=== PATIENT | male | born 1935 | race Caucasian/White ===

== ENCOUNTER 2017-01-09 07:50 | Emergency (ER) | payer MEDICARE, BC ==
[2017-01-09 08:10] VITALS: BP 120/52
--- NOTE | 2017-01-09 08:54 | UC ---
Complaint Female HPI - HPI Summary HPI Summary: had a cystoscopy [place], and yesterday, developed pain with urination and frequency. [ End ] - History Of Current Complaint Chief Complaint: UCGU Stated Complaint: PAINFUL AND FREQUENT URINATION Time Seen by Provider: 01/09/17 08:15 Hx Obtained From: Patient Onset/Duration: Gradual Onset Timing: Constant Character: Sharp Associated Signs And Symptoms: Positive: Negative - Risk Factors Ovarian Torsion Risk Factor: Negative - Allergies/Home Medications Allergies/Adverse Reactions: Allergies Allergy/AdvReac Type Severity Reaction Status Date / Time No Known Allergies Allergy Verified 01/09/17 08:00 Home Medications: Home Medications Aspirin TAB* [Aspirin 325 MG TAB*] 325 mg PO DAILY 01/09/17 [History Confirmed 01/09/17] Clopidogrel TAB* [Plavix TAB*] 75 mg PO DAILY 01/09/17 [History Confirmed ] Med To Raise Bp DAILY 01/09/17 [History] PMH/Surg Hx/FS Hx/Imm Hx Previously Healthy: Yes Cardiovascular History: Cardiac Disease - Surgical History Surgical History: Yes Surgery Procedure, Year, and Place: carotid artery stent 09/2010 at [facility] [place] - ACCU LINK stent ok to 3T. left knee replacement 1998. tonsils as a child. appendix age 18. BILATERAL CATARACTS- [place]- 06/2013. 1984- KNEE SCRAPING- [place] - Family History Known Family History: Positive: None - Social History Occupation: Retired Lives: With Family Alcohol Use: None Substance Use Type: None Smoking Status (MU): Former Smoker When Did the Patient Quit Smoking/Using Tobacco: 20 years ago Review of Systems Constitutional: Negative Skin: Negative Eyes: Negative ENT: Negative Respiratory: Negative Cardiovascular: Negative Gastrointestinal: Negative Genitourinary: Dysuria, Hematuria, Frequency, Urgency Motor: Negative Neurovascular: Negative Musculoskeletal: Negative Neurological: Negative Psychological: Negative All Other Systems Reviewed And Are Negative: Yes Physical Exam Triage Information Reviewed: Yes Appearance: Well-Appearing, No Pain Distress, Well-Nourished Vital Signs: Initial Vital Signs Temp 99.4 F 01/09/17 08:05 Pulse 69 01/09/17 08:05 Resp 18 01/09/17 08:05 BP 120/52 01/09/17 08:05 Pulse Ox 100 01/09/17 08:05 Vital Signs Reviewed: Yes Eye Exam: Normal ENT Exam: Normal Dental Exam: Normal Neck exam: Normal Neck: Positive: 1 Respiratory Exam: Normal Cardiovascular Exam: Normal Abdominal Exam: Normal Musculoskeletal Exam: Normal Neurological Exam: Normal Psychological Exam: Normal Skin Exam: Normal Complaint Female Dx - Differential Dx/Diagnosis Differential Diagnosis/HQI/PQRI: Urinary Tract Infection Provider Diagnoses: UTI Discharge - Discharge Plan Condition: Good Disposition: HOME Prescriptions: Ciprofloxacin HCl [Cipro 250 MG TAB] 250 mg PO BID #20 tab Patient Education Materials: Urinary Tract Infection in Men (ED) Referrals: Hamlet Tello DO [Primary Care Provider] - 3 Days Additional Instructions: PLEASE HOLD YOUR STATIN WHILE TAKING THIS ANTIBIOTIC. PLEASE FOLLOW UP WITH YOUR DOCTOR IN 2 WEEKS FOR RECHECK ON URINE AND RETURN EARLIER IF YOUR SYMPTOMS ARE NOT IMPROVED
== END 2017-01-09 09:10 | disposition home or self-care (01) ==
LOC: UCCORT 07:50
DX: N39.0 Urinary tract infection, site not specified (principal); R31.9 Hematuria, unspecified; Z95.5 Presence of coronary angioplasty implant and graft; Z96.652 Presence of left artificial knee joint; Z98.42 Cataract extraction status, left eye; Z98.41 Cataract extraction status, right eye; Z87.891 Personal history of nicotine dependence
CPT/HCPCS: 81003; 87077; 87086; 87186; 99212; G0463

== ENCOUNTER 2017-01-18 07:52 | Emergency (ER) | payer MEDICARE, BC ==
--- NOTE | 2017-01-18 08:38 | UC ---
Respiratory Complaint HPI - HPI Summary HPI Summary: 81 yo male with chronic cough x months acutely worsened past 1-2 days no fever currently on last day of cipro for UTI improved no CP - History of Current Complaint Chief Complaint: UCRespiratory Stated Complaint: COUGH Time Seen by Provider: 01/18/17 08:18 Hx Obtained From: Patient Onset/Duration: Gradual Onset Timing: Constant Severity Initially: Mild Severity Currently: Moderate Pain Intensity: 4 - DJD Pain Scale Used: 0-10 Numeric Character: Sputum Description: - green Aggravating Factors: Nothing Alleviating Factors: Nothing Associated Signs And Symptoms: Positive: Dyspnea - Allergies/Home Medications Allergies/Adverse Reactions: Allergies Allergy/AdvReac Type Severity Reaction Status Date / Time No Known Allergies Allergy Verified 01/18/17 08:19 PMH/Surg Hx/FS Hx/Imm Hx Cardiovascular History: Cardiac Disease Respiratory History: COPD - on inhaler but can't remember name - Surgical History Surgical History: Yes Surgery Procedure, Year, and Place: carotid artery stent 09/2010 at [facility] [place] - ACCU LINK stent ok to 3T. left knee replacement 1998. tonsils as a child. appendix age 18. BILATERAL CATARACTS- [place]- 06/2013. 1983- KNEE SCRAPING- [place] - Family History Known Family History: Positive: None - Social History Alcohol Use: None Substance Use Type: None Smoking Status (MU): Former Smoker Type: Cigarettes Amount Used/How Often: 1 ppd Length of Time of Smoking/Using Tobacco: 20 yrs When Did the Patient Quit Smoking/Using Tobacco: 1976 Review of Systems Constitutional: Negative Skin: Negative Eyes: Negative ENT: Negative Respiratory: Shortness Of Breath, Cough Cardiovascular: Negative Gastrointestinal: Negative Genitourinary: Negative Motor: Negative Neurovascular: Negative Musculoskeletal: Negative Neurological: Negative Psychological: Negative All Other Systems Reviewed And Are Negative: Yes Physical Exam Triage Information Reviewed: Yes Appearance: Well-Appearing, No Pain Distress, Well-Nourished Vital Signs: Initial Vital Signs Temp 99.2 F 01/18/17 08:14 Pulse 75 01/18/17 08:14 Resp 16 01/18/17 08:14 BP 92/47 01/18/17 08:14 Pulse Ox 98 01/18/17 08:14 Vital Signs Reviewed: Yes Eyes: Positive: Conjunctiva Clear ENT: Positive: Pharynx normal, Pharyngeal erythema. Negative: Hearing grossly normal Neck: Positive: Supple, Nontender Respiratory: Positive: Lungs clear, Normal breath sounds, No respiratory distress, No accessory muscle use Cardiovascular: Positive: RRR, No Murmur Musculoskeletal: Positive: No Edema, Edema @ - right leg (chronic per pt) Neurological: Positive: Alert UC Diagnostic Evaluation - Laboratory O2 Sat by Pulse Oximetry: 98 - normal/not hypoxic - Radiology Xray Interpretation: No Acute Changes Radiology Interpretation Completed By: Radiologist Respiratory Course/Dx - Course Course Of Treatment: pt has been referred to a pulmonalogist but has not yet made an appt - Differential Dx/Diagnosis Provider Diagnoses: acute exacerbation of chronic cough Discharge - Discharge Plan Condition: Stable Disposition: HOME Prescriptions: Benzonatate CAP* [Tessalon CAP*] 100 - 200 mg PO TID PRN #28 cap PRN Reason: Cough Fluticasone NASAL SPRAY 50MCG* [Flonase NASAL SPRAY 50MCG*] 2 spray BOTH NARES DAILY #1 btl Patient Education Materials: Chronic Cough (ED) Referrals: Hamlet Tello DO [Primary Care Provider] - 4 Days
--- NOTE | 2017-01-18 08:47 | RAD ---
INDICATION: Exacerbation of a chronic cough COMPARISON: None TECHNIQUE: PA and lateral views of the chest were obtained. FINDINGS: The heart and mediastinum are normal in size and contour. There is faint atherosclerotic calcification overlying the arch of the aorta. The lungs are grossly clear. There is no evidence of large pleural effusion. Visualized bones are normal for the patient's age. There is no radiographic evidence of free air beneath the diaphragm IMPRESSION: No radiographic evidence of acute cardiopulmonary disease.
[2017-01-18 08:58] VITALS: BP 92/47
== END 2017-01-18 09:21 | disposition home or self-care (01) ==
LOC: UCCORT 07:52
DX: R05 Cough (principal); R06.00 Dyspnea, unspecified; N39.0 Urinary tract infection, site not specified; J44.9 Chronic obstructive pulmonary disease, unspecified; Z95.5 Presence of coronary angioplasty implant and graft; Z96.652 Presence of left artificial knee joint; Z98.42 Cataract extraction status, left eye; Z98.41 Cataract extraction status, right eye; Z87.891 Personal history of nicotine dependence
CPT/HCPCS: 71020; 99212; G0463

== ENCOUNTER 2017-05-08 10:12 | Emergency (ER) | payer MEDICARE, BC ==
[2017-05-08 10:21] VITALS: BP 114/64
--- NOTE | 2017-05-08 10:22 | UC ---
Respiratory Complaint HPI - HPI Summary HPI Summary: cough minimal sputum, no fever, no shortness of breath, has not gone to the pulmonary provider, patient states when this happens tessalon and flonase is very effective for him - History of Current Complaint Chief Complaint: UCRespiratory Stated Complaint: CHEST CONGESTION, COUGH Time Seen by Provider: 05/08/17 10:20 Hx Obtained From: Patient Onset/Duration: Gradual Onset, Lasting Days, Still Present Timing: Intermittent Episodes Severity Initially: Mild Severity Currently: Mild Character: Cough: Productive - minimal clear sputum Aggravating Factors: Recumbent Position Alleviating Factors: Other - flonase and tessalon in the past has been effective Associated Signs And Symptoms: Positive: Negative - Allergies/Home Medications Allergies/Adverse Reactions: Allergies Allergy/AdvReac Type Severity Reaction Status Date / Time No Known Allergies Allergy Verified 05/08/17 10:21 PMH/Surg Hx/FS Hx/Imm Hx Previously Healthy: No Endocrine History: Dyslipidemia Cardiovascular History: Cardiac Disease Respiratory History: Asthma GI/ History: Gastroesophageal Reflux - Surgical History Surgical History: Yes Surgery Procedure, Year, and Place: carotid artery stent 09/2010 at [facility] [place] - ACCU LINK stent ok to 3T. left knee replacement 1998. tonsils as a child. appendix age 18. BILATERAL CATARACTS- [place]- 06/2013. 1983- KNEE SCRAPING- [place] - Family History Known Family History: Positive: None - Social History Occupation: Retired Lives: With Family Alcohol Use: None Substance Use Type: None Smoking Status (MU): Former Smoker Type: Cigarettes Amount Used/How Often: 1 ppd Length of Time of Smoking/Using Tobacco: 20 yrs When Did the Patient Quit Smoking/Using Tobacco: 20 years ago - Immunization History Most Recent Influenza Vaccination: 04/2017 Hx Tetanus, Diphtheria Vaccination: Yes Vaccination Up to Date: Yes Review of Systems Constitutional: Negative Skin: Negative Eyes: Negative ENT: Negative Respiratory: Cough Cardiovascular: Negative Gastrointestinal: Negative Genitourinary: Negative Motor: Negative Neurovascular: Negative Musculoskeletal: Negative Neurological: Negative Psychological: Negative Is Patient Immunocompromised?: No All Other Systems Reviewed And Are Negative: Yes Physical Exam Triage Information Reviewed: Yes Appearance: Well-Appearing, No Pain Distress, Well-Nourished Vital Signs: Initial Vital Signs Temp 98.2 F 05/08/17 10:16 Pulse 76 09/30/17 10:16 Resp 18 05/08/17 10:16 BP 114/64 05/08/17 10:16 Pulse Ox 98 05/08/17 10:16 Vital Signs Reviewed: Yes Eye Exam: Normal Eyes: Positive: Conjunctiva Clear ENT Exam: Normal ENT: Positive: Normal ENT inspection, Hearing grossly normal, Pharynx normal, TMs normal. Negative: Nasal congestion, Nasal drainage, Trismus, Muffled/ hoarse voice Dental Exam: Normal Neck exam: Normal Neck: Positive: Supple, Nontender, No Lymphadenopathy Respiratory Exam: Normal Respiratory: Positive: Chest non-tender, Lungs clear, Normal breath sounds, No respiratory distress, No accessory muscle use Cardiovascular Exam: Normal Cardiovascular: Positive: RRR, Pulses Normal, Brisk Capillary Refill Musculoskeletal Exam: Normal Musculoskeletal: Positive: Strength Intact, ROM Intact, No Edema Neurological Exam: Normal Neurological: Positive: Alert, Muscle Tone Normal Psychological Exam: Normal Skin Exam: Normal UC Diagnostic Evaluation - Laboratory O2 Sat by Pulse Oximetry: 98 Respiratory Course/Dx - Course Course Of Treatment: follow at [employer], flonase, tessalon, continue inhalers - Differential Dx/Diagnosis Differential Diagnosis/HQI/PQRI: Asthma, Laryngitis, Sinusitis Provider Diagnoses: Acute exacerbation of chronic cough Discharge - Discharge Plan Condition: Stable Disposition: HOME Prescriptions: Benzonatate CAP* [Tessalon 100 MG CAP*] 100 mg PO TID PRN #40 cap PRN Reason: cough Fluticasone NASAL SPRAY 50MCG* [Flonase NASAL SPRAY 50MCG*] 2 spray BOTH NARES DAILY #1 btl Patient Education Materials: Chronic Cough (ED), How to Use Nasal [place] (ED) Referrals: Hamlet Tello DO [Primary Care Provider] - 1 Week
== END 2017-05-08 10:47 | disposition home or self-care (01) ==
LOC: UCCORT 10:12
DX: R05 Cough (principal); E78.5 Hyperlipidemia, unspecified; K21.9 Gastro-esophageal reflux disease without esophagitis
CPT/HCPCS: 99212; G0463

== ENCOUNTER 2017-09-02 11:24 | Inpatient (IN) | payer MEDICARE, BC ==
--- NOTE | 2017-08-26 12:13 | HP ---
HISTORY AND PHYSICAL: DATE OF ADMISSION: 09/02/17 PROVIDER: Dr. Shyla Goodwin.* (DICTATED BY MARIANGEL SPEAR) HISTORY OF PRESENT ILLNESS: Mr. Olivas is an 82-year-old man scheduled to undergo a left revision total knee arthroplasty on 09/02/17. He has been experiencing continued pain in the knee and would like to proceed with the arthroplasty. He is to hold the aspirin/clopidogrel 1 week prior to the operation and restart the day after the operation has been completed. PAST MEDICAL HISTORY: 1. COPD. 2. GERD. 3. Osteoarthritis. 4. Hypotension, stable with midodrine use. 5. Prostate cancer. 6. 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 7. Bilateral carotid artery stenosis. PAST SURGICAL HISTORY: 1. Stenting of intracranial artery, 09/29/12. 2. Re-stenting and angioplasty, 04/15/16. 3. Knee replacement, 07/17/99, left total knee replacement. 4. Shoulder surgery with tendon repair, unknown date. 5. Appendectomy, 1953. 6. Tonsillectomy and wisdom tooth extraction, unknown date. CURRENT MEDICATIONS: 1. Clopidogrel bisulfate 75 mg 1 by mouth every day. 2. Aspirin 325 mg 1 by mouth every day. 3. Simvastatin 40 mg 1 tablet by oral route every day. 4. Omeprazole 20 mg 1 capsule by oral route every day 30 minutes to 1 hour before meal. 5. Vitamin D high potency 1000 units. 6. Sildenafil citrate. 7. SF 5000 plus. 8. Cialis 20 mg. 9. Midodrine hydrochloride 5 mg. 10. Dulera 200/5 mcg. ALLERGIES: No known drug allergies. SOCIAL HISTORY: Lives with spouse. 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 Work status, retired. Hand dominant, right hand. Personal habits: Smoking, the patient is a former smoker smoked 10 years , quit over 50 years ago. Alcohol, has consumed in the past, does not consume currently. Drug use, denies any drug use. REVIEW OF SYSTEMS: General: The patient denies any fevers, chills, or night sweats. No known anesthesia problems. HEENT: The patient denies any headache , lightheadedness, or syncopal episodes. Cardiothoracic: The patient denies any chest pain, heart palpitations, or edema. Pulmonary: The patient denies any shortness of breath with exertion, chronic cough. GI: The patient denies any nausea, vomiting, diarrhea, or constipation. : The patient denies any nocturia, urinary frequency, or urinary urgency. MSK: The patient admits to bilateral knee pain, left worse than right. Neuro: The patient denies any paresthesia, numbness, or tingling. Integument: The patient denies any abrasions, lesions, rashes, or open sores. PHYSICAL EXAMINATION GENERAL: The patient is alert and oriented x3 with appropriate mood and affect , in no acute distress. HEENT: Normocephalic, atraumatic. Hearing and vision are grossly intact. PULMONARY: Lungs are clear to auscultation bilaterally. No wheezes, rales, or rhonchi. CARDIO: Regular rate and rhythm. Normal S1 and S2. No murmurs, rubs, or gallops appreciated. MUSCULOSKELETAL: Left lower extremity, inspection of left knee reveals no erythema, no ecchymosis. Skin is warm, dry, and intact. There is an old incision present, which points to an old total knee replacement. Range of motion is 0 to 100 degrees of flexion. The patient has negative anterior and posterior drawer test. Negative varus and valgus stress testing, but he does have pain. The patient's gait is antalgic, favoring the left lower extremity. He does not use an assistive device at this time to walk. DIAGNOSTIC STUDIES: Imaging: X-rays of both knees obtained from 06/17/17 were reviewed. The lateral left knee shows an effusion, total knee arthroplasty , shows periprosthetic bone loss with lysis, the implant grossly stable. [facility] both patellas are normally aligned. 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 PLAN: He will undergo a left total knee arthroplasty revision on 09/02/17. He has been cleared by his PCP and his neurologist. At this time, he will come off the aspirin and clopidogrel 1 week before surgery and resume shortly after surgery. The patient will be sent a script for Percocet 5/325 for postop pain management. The patient will return 10 to 14 days postoperatively for suture removal and followup. MARIANGEL SPEAR [id number]/[facility] #: [id number] [facility], [place]
[~2017-09-02 11:24] MED LIST: Acetaminophen TAB* 325 MG PO ONE; Buffered Lidocaine 0.9% SYRIN* 5 ML/SYR SYRINGE INTRADERM ONE; DiMENhydriNATE IV* 50 MG/ML VIAL IV PUSH PRN; Famotidine IV* 10 MG/ML 2 ML (20 mg) IV ONE; Gabapentin CAP(*) 300 MG PO ONE; Morphine INJ* 2 MG/ML 1 ML CARPUJECT IV PRN; Naloxone* 0.4 MG/ML 1 ML VIAL IV PRN; PROCHLORPERAZINE INJ 5 MG/ML 2 ML VIAL IV PRN; fentaNYL* 50 MCG/ML 2 ML VIAL (100 MCG VIAL) IV PRN; oxyCODONE/Acetamin 5/325 MG* TAB PO PRN
[2017-09-02] MEDS ORDERED: Famotidine IV* 10 MG/ML 2 ML (20 mg) ONE (11:38)
[2017-09-02] MEDS ORDERED: Gabapentin CAP(*) 300 MG ONE (11:38)
[2017-09-02] MEDS ORDERED: ceFAZolin 2 GM PREMIX (*) 2 GM/50 ML BAG IVPB ONE (11:39)
[2017-09-02] MEDS ORDERED: Buffered Lidocaine 0.9% SYRIN* 5 ML/SYR SYRINGE ONE (11:39)
[2017-09-02] MEDS ORDERED: Acetaminophen TAB* 325 MG ONE (11:39)
[2017-09-02] MEDS ORDERED: fentaNYL* 50 MCG/ML 2 ML VIAL (100 MCG VIAL) ONE ×2 (13:44→16:42)
[2017-09-02] MEDS ORDERED: Morphine PF AMP (0.5MG/ML)* 5 MG/10 ML AMP ONE (13:44)
[2017-09-02] MEDS ORDERED: KETAMINE HCL* 50 MG/ML 10 ML VIAL ONE (13:44)
[2017-09-02] MEDS ORDERED: Midazolam* 1 MG/ML 10 ML VIAL (10 MG) ONE (13:44)
[2017-09-02] MEDS ORDERED: Scopolamine 1.5 mg* PATCH TRANSDERM PRN (14:45)
[2017-09-02] MEDS ORDERED: Ketorolac INJ* 30 MG/ML 1 ML VIAL IV PRN (14:45)
[2017-09-02] MEDS ORDERED: Ondansetron INJ* 2 MG/ML VIAL IV PRN (14:45)
[2017-09-02] MEDS ORDERED: PROCHLORPERAZINE INJ 5 MG/ML 2 ML VIAL IV PRN (14:45)
[2017-09-02] MEDS ORDERED: Naloxone* 0.4 MG/ML 1 ML VIAL IV PRN (14:45)
[2017-09-02] MEDS ORDERED: Scopolamine PATCH Remove* 1 NOTE MISC PATCH OFF PRN (14:45)
[2017-09-02] MEDS ORDERED: oxyCODONE/Acetamin 5/325 MG* TAB PO PRN (14:45)
[2017-09-02] MEDS ORDERED: Naloxone* 2 MG in NS 0.9% 250 ML* 250 ML IV PRN (14:45)
[2017-09-02] MEDS ORDERED: diPHENhydraMINE IV* 50 MG/ML 1 ml VIAL (BENADRYL) IV PRN (14:45)
[2017-09-02] MEDS ORDERED: Nalbuphine* 20 MG/ML 1 ML VIAL IV PRN (14:45)
--- NOTE | 2017-09-02 18:13 | RAD ---
CPT II Codes: 6045F INDICATION: Left knee replacement. Fluoroscopic services provided for referring physician. 4.9 seconds of fluoroscopy time was used. 5 spot images demonstrates placement of a bipolar left knee prosthesis in satisfactory position. IMPRESSION: Left knee replacement in satisfactory position.
[2017-09-02] MEDS ORDERED: Bupivacaine 0.5% SDV PF* 10-30ML VIAL ONE (18:14)
[2017-09-02] MEDS ORDERED: Bupivacaine 0.25% SDV* 30 ML ONE (18:14)
[2017-09-02] MEDS ORDERED: Dexamethasone IV* 4 MG/ML 1 ML (4 MG) ONE (18:15)
[2017-09-02] MEDS ORDERED: Phenylephrine INJ* 10 MG/ML 1 ML VIAL (10 MG) ONE (18:15)
[2017-09-02] MEDS ORDERED: Ondansetron INJ* 2 MG/ML VIAL ONE (18:15)
[2017-09-02] MEDS ORDERED: Lidocaine 2% PF* 10 ML AMP ONE (18:15)
[2017-09-02] MEDS ORDERED: Lidocaine 2% PF * 5 ML VIAL ONE (18:15)
[2017-09-02] MEDS ORDERED: ceFAZolin 1 GM VIAL(*) ONE ×2 (18:17→18:19)
[2017-09-02] MEDS ORDERED: Propofol* 10 MG/ML 20 ML BTL IV PUSH ONE (18:25)
[2017-09-02] MEDS ORDERED: Magnesium Hydroxide LIQ* 30 ML UDC PO PRN (18:30)
[2017-09-02] MEDS ORDERED: Acetaminophen TAB* 325 MG PO PRN (18:30)
[2017-09-02] MEDS ORDERED: Cyclobenzaprine TAB* 10 MG PO PRN (18:30)
[2017-09-02] MEDS ORDERED: Bisacodyl SUPP* 10 MG SUPP PR PRN (18:30)
[2017-09-02] MEDS ORDERED: Polyethylene Glycol 3350* 17 GM PACKET PO PRN (18:30)
[2017-09-02] MEDS ORDERED: Albuterol 2.5 MG/3 ML NEB.SOL* (0.083%) INH PRN (19:26)
--- NOTE | 2017-09-02 20:29 | RAD ---
Indication: Status post left knee replacement effusion. Left femur revision of the femoral and tibial components demonstrates the left knee prosthesis proximal component is well seated. No fracture of the remaining left femur noted. IMPRESSION: Left femur demonstrates no fracture.
--- NOTE | 2017-09-02 20:30 | RAD ---
Indication: Left knee replacement. 2 views of left knee demonstrates left knee replacement in satisfactory position. No loosening is noted. IMPRESSION: Left knee replacement in satisfactory position.
--- NOTE | 2017-09-02 20:31 | RAD ---
Indication: Left knee replacement with revision. 2 views of the left lower leg demonstrates the tibial component to be well seated. No loosening is noted. The remainder of the tibia and fibula are unremarkable. IMPRESSION: Tibial component of the left knee replacement appears to be intact with no fracture.
[2017-09-02] MEDS ORDERED: Warfarin TAB(*) 6 MG PO ONE (21:00)
[2017-09-02] MEDS: Magnesium Hydroxide LIQ* 30 ML UDC PO SCH (21:34)
[2017-09-02] MEDS: Docusate CAP* 100 MG PO SCH (21:37)
[2017-09-02] MEDS: ceFAZolin 1 GM VIAL(*) 1 GM in NS 0.9% 50 ML* 50 ML IVPB SCH (22:51)
[2017-09-02] MEDS: Albuterol HFA INHALER* 8 gm MDI INH PRN (23:05)
[2017-09-02] MEDS: Mometasone/Formoter 200/5 MDI INH SCH (23:06)
--- NOTE | 2017-09-02 23:07 | CONS ---
CC: Dr. Goodwin; Dr. Bowers * CONSULTATION REPORT: DATE OF CONSULTATION: 09/02/17 REASON FOR MEDICAL CONSULTATION: Evaluation and medical management of comorbid medical condition. REQUESTING PHYSICIAN IN CONSULT: Dr. Goodwin. ATTENDING PHYSICIAN WHILE IN THE HOSPITAL: Dr. Horace Zuniga (report dictated by Claudio Molina, GABO). PRIMARY CARE PROVIDER: Dr. Bowers. HISTORY OF PRESENT ILLNESS: I will refer you to Dr. Goodwin's H and P for further details. In short, Mr. Olivas is an 82-year-old male patient. He carries a history of asthma, GERD. He has a history of carotid artery disease, status post carotid stent. He has a history of prostate cancer and hypotension , on chronic midodrine therapy and a history of osteoarthritis. He came in to Dr. Goodwin's service today because he has been experiencing some discomfort in his left knee of which he had a replacement there in the past. He sought evaluation and it was felt that he would benefit from a revision. The patient underwent perioperative risk stratification with his PCP, his aircraft sales representative, and his neurologist. He is evaluated in the PACU today. He states he is feeling well. He said he has a cough, he has been having for the last 5 days. Denies having any shortness of breath, fevers or chills. No chest pain. He denies any abdominal pain. He says he does not feel nauseous. He says his pain is well controlled and he denies having any symptoms of lightheadedness or feeling like he is going to faint. Because of his medical complexity, we were asked to evaluate in consult. PAST MEDICAL HISTORY: Significant for: 1. Asthma. 2. GERD. 3. Arthritis. 4. Hypotension. 5. Prostate cancer. 6. Carotid artery stenosis. PAST SURGICAL HISTORY: 1. He has had a carotid artery stent. 2. He has had a left total knee replacement, now with revision. 3. He has had shoulder surgery. 4. Appendectomy. 5. Tonsillectomy. 6. He has had a TURP. HOME MEDICATIONS: According to the preoperative list include: 1. Cialis 20 mg daily as needed. 2. Simvastatin 40 mg daily. 3. Omeprazole 40 mg daily. 4. Dulera 2 puffs inhaled b.i.d. 5. Midodrine 5 mg p.o. daily. 6. Plavix 75 mg daily. 7. Aspirin 325 mg daily. 8. ProAir 1 puff inhaled every 6 hours as needed. ALLERGIES TO MEDICATIONS: Include no known drug allergies. FAMILY HISTORY: His mother of old age at the age of 94. Father had a history of COPD. SOCIAL HISTORY: He does not smoke, does not drink. Surrogate decision maker is his . REVIEW OF SYSTEMS: There is no documented fever. He denies having any significant weight change. No double vision. There is no ear discharge. He denies having any rhinorrhea. No sore throat. No thyroid enlargement. Denies having any chest pain or orthopnea. No nocturnal dyspnea. There is no abdominal pain. No nausea, no vomiting. No dysuria, no frequency. No seizure , no loss of consciousness, no pruritus, and no skin ulcerations. Review of 14 systems completed, all others negative. PHYSICAL EXAMINATION: Vital Signs: Temperature 146/76, pulse 65, respirations 18, O2 saturation 97%, temperature 96.4. General: At this time, Mr. Olivas is an 82- year-old male patient, he is sitting in the PACU stretcher, he appears to be well nourished, well developed. HEENT: Head is atraumatic. Eyes: Sclerae anicteric. Neck: Supple. Throat: Oral mucosa appears to be moist. No oropharyngeal erythema. Heart sounds S1, S2. Regular rate and rhythm. No murmurs, rubs, or gallops. Lungs: Clear to auscultation bilaterally. No wheezes, rales, or rhonchi. Abdomen: Soft, flat, nontender. Bowel sounds hypoactive. Extremities: Pulses were 2+ throughout. He had sensation in the lower extremities. He is dorsi and plantar flexing. Distal CSM checks are intact to the left lower extremity. Neurologically, he is drowsy, but he awakens to his name. He is alert, he is oriented x3. His tongue is midline. No gross focal deficits. His skin was intact with the exception he has an incision and Hemovac to the left knee, which is clean, dry, and intact. LABORATORY DATA/DIAGNOSTIC DATA: These are preop, WBC of 6.3, RBC of 4.32, hemoglobin 13.6, hematocrit of 41, platelet count 178. His INR was 0.96. His sodium 132, potassium 4.8, chloride of 104, bicarbonate 22, BUN 25, creatinine of 1.13, glucose of 99. Urine preop was negative. He did have a preop EKG as well, which showed a normal sinus rhythm, rate of [address] with a PVC. No ST elevation or T- wave inversions were noted. He did have a preop chest x-ray, impression: No active cardiopulmonary disease. Old medical records reviewed. IMPRESSION: Mr. Olivas is an 82-year-old male patient with multiple medical problems coming into our orthopedic service today for an elective total knee revision. We were asked to evaluate in consult. Our recommendations at this point are: 1. Status post left total knee revision. I will defer the management of this to Dr. Goodwin and her team. I will say that I would recommend getting him back on aspirin and Plavix. I do note that they are placing on Coumadin for DVT prophylaxis. We may want touch base with the patient's neurologist in [place], there is a note in the chart with their numbers that we can touch base with them tomorrow to see if they want to do antiplatelet therapy and Coumadin, it will be triple therapy, which will increase his risk of bleeding. They may consider just doing Plavix and Coumadin or aspirin and Coumadin. We should touch base with them tomorrow to figure out going forward which antiplatelet agents as soon as possible and deemed safe by Orthopedics. 2. Carotid artery disease. As I said before, we should touch base with his primary neurologist tomorrow to see what his advice is knowing the patient is going to be on Coumadin for most likely 4 weeks postoperative to prevent DVT. We should see if he would still continue aspirin and Plavix dual therapy. It could be conceivable that his neurologist may want to do Plavix and Coumadin, and once he is off his Coumadin, we will get him back on his aspirin and Plavix , again we need to touch base with them to clarify this. 3. Gastroesophageal reflux disease. Continue PPI therapy. 4. History of asthma. He is coughing here postoperatively. We will continue aggressive pulmonary toileting. I have ordered p.r.n. albuterol. We will continue his Dulera as a standing and we will continue to follow him. 5. Prostate cancer. Continue his current medical management. 6. DVT prophylaxis, deferred to the primary team. 7. Code status. Full code. 8. Fluids, electrolytes and nutrition. I would recommend a heart healthy diet. TIME SPENT: Time spent on the consult 60 minutes, greater than half that time was spent [id number] with the patient obtaining my history and physical, the other half time was spent going over the plan of care with the patient, implementing the plan of care. I did discuss the plan of care with my attending , Dr. Zuniga. He is in agreement. CLAUDIO MOLINA, GABO [id number]/[facility] #: [id number] [facility]
--- NOTE | 2017-09-03 05:33 | OP ---
DATE OF OPERATION: 09/02/17 - ROOM #348 DATE OF : 35 ATTENDING SURGEON: Shyla Goodwin MD STAFF AUDITOR: MARIANGEL Arguelles. Ms. Coello did help throughout the procedure with preparation of the leg, wound retraction, manipulation of the knee and wound closure. ANESTHESIOLOGIST: Dr. Khan. ANESTHESIA: Spinal. 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 OPERATIVE PROCEDURE: Left revision total knee arthroplasty/revision of both femur and tibial components. TOURNIQUET TIME: 88 minutes. COMPLICATIONS: None. ESTIMATED BLOOD LOSS: 450 cc. SPECIMEN: Multiple cultures swabs were sent for microbiology, cultures and sensitivities. Also soft tissue from the joint capsule was sent for cultures and sensitivities. The explanted hardware was sent to pathology. HARDWARE USED: This is a DePuy revision cemented total knee arthroplasty hardware. For the femur, a Sigma TC3 femoral component cemented size 4 left with a neutral femoral adaptor bolt and a universal fluted stem 75 x 18 mm. For the femoral component, two posterior augments were used medially and laterally for the size 4, which were 4 mm. Also a distal lateral augment was used for a size 4 femur, which was 8 mm. A MBT revision metaphyseal pore sleeve size 37 was used for the tibial tray and MBT revision tibial tray rotating platform size 5 cemented was used with a universal fluted stem 75 mm x 16 mm. For the insert, a sigma tibial insert rotating platform TC3 size 4 with 50 mm thickness. Two packages of Simplex cement with Tobramycin were used. BRIEF HISTORY/INDICATIONS: Mr. Olivas is an 82-year-old gentleman who had left total knee arthroplasty in 1998 at an outside facility. Over the last year, he has developed increased pain and recurrent effusions in the left knee. Radio- graphs showed osteolysis and periprosthetic loosening. I offered him a revision left total knee arthroplasty and he wished to proceed due to decreased quality of life and inability to ambulate. Informed consent was obtained from the patient. He understood the risks of surgery included but were not limited to bleeding, infection, damage to nearby structures, continued pain, need for further surgery, intraoperative fracture, nerve palsy, hardware failure or loosening, knee stiffness, loss of motion, stroke, heart attack, blood clot and . He wished to proceed. INTRAOPERATIVE FINDINGS: Intraoperatively, the patient was noted to have significant osteolysis and bone loss around the implants. This was most apparent along the lateral femoral condyle and medial tibial plateau. Patella showed some mild wear, but was not loose and the decision was made to revise the patellar component. The patient's prior implants were explanted without significant bone loss. DESCRIPTION OF PROCEDURE: Mr. Olivas was identified in the preanesthesia unit. His left lower extremity was marked as the correct operative side. Informed consent was signed and placed in the chart. The patient was taken to the operating room and placed under spinal anesthesia. A Melchor catheter was placed. Tourniquet was placed on the left lower extremity. Left lower extremity was prepped and draped in the usual sterile fashion. Preop time-out was made to correctly identify the patient's side and site. Appropriate perioperative antibiotics were given within 1 hour of incision. Tourniquet was inflated. Total tourniquet time for this procedure was 88 minutes. The patient 's prior midline incision was used. A 10- blade was used to carefully dissect down to the extensor mechanism. Next, a new 10- blade was used to make a standard medial parapatellar arthrotomy. 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 This was carefully excised with electrocautery. Scar tissue along the patellar tendon was carefully released. The patella was everted and it was noted that although the patella had mild wear, the patella was not loose and in good shape. Decision was made not to revise the patella. Patella was subluxed laterally. Electrocautery was used to subperiosteally elevate soft tissue off the superomedial tibia to the mid sagittal plane. The knee was flexed up. The microsagittal saw was used to carefully break the cement hardware interface along the medial and lateral femoral component. The prior polyethylene insert was removed with an osteotome. A bone tamp was used to carefully remove the femoral component. It was noted that there was very little bone loss on the femoral component. A rongeur was used to remove any cystic bone. It was noted that there was significant bone loss along the lateral femoral condyle. Attention was next turned to explant of the tibial component. Microsagittal saw and both flexible and rigid osteotomes were used to break the cement hardware interface. The tibial tray was carefully explanted. Very minimal bone loss was noted. After removal of any cystic bone or fibrous tissue, it was noted that the medial tibial plateau had significant bone loss. Several different tools were used to carefully remove cement from the intramedullary canal. Next, the tibial intramedullary canal was sequentially reamed up to a size 16. The metaphyseal sleeve press fit broaches were used to find a stable platform in the tibia. The metaphyseal sleeve broaches were used up to a size 37. The broach was left in. The broach was used to make a clean-up cut of the lateral tibial plateau region. Next, a trial tibial tray with 37 metaphyseal sleeve and 16 mm x 75 mm stem was chosen. This trial was placed and noted to have excellent fit and stability on the proximal tibia. Attention was next turned to preparation of the distal femur. Intramedullary canal was sequentially hand reamed up to a size 18 mm. Broach was left in place. The distal cut was made noting that there was minimal clean-up on the medial distal femur and +8 mm loss of bone laterally. The femur was sized to a size 4. Size 4 multi-cutting jig was placed. It was noted that posteriorly 4 mm augments would be needed both medially and laterally. Clean-up cuts were made. Next, the jig for the box was placed and the appropriate cuts were made for the TC3 box. Trial femur was put together with 4 mm posterior augments both medially and laterally. A lateral distal 8 mm augment was used. An 18 x 75 mm stem was used. This was placed on the femur and the trial had excellent fit. A 12.5 insert trial was placed and the knee was taken through range of motion. The knee had full extension to 130 degrees of flexion with satisfactory patellofemoral tracking. All trials were carefully removed. Tourniquet had been turned down at 60 minutes. The tourniquet was reinflated at this point. The bony cut surfaces were copiously irrigated with sterile saline and dried. Final implants were cemented into place starting with the tibia followed by the femur. The stems were not cemented. These were press fit stems. The metaphyseal sleeve of course was not cemented, this was also press fit. A 15-mm insert trial was placed and the knee was brought out into full extension. Tourniquet was turned down at 88 minutes. Any excess cement was carefully removed from around the implants. The knee was copiously irrigated with sterile saline. Once the cement had fully cured, the insert trial was removed. Any extra cement around the implants was removed. Final insert chosen was a Sigma rotating platform TC3 size 4, 15 mm insert. This was placed without difficulty. The knee was taken through range of motion and had full extension to 130 degrees of flexion with satisfactory patellofemoral tracking. The extensor mechanism was closed over a medium Hemovac drain using interrupted #1 Vicryl. The rest of the incision was closed in a layered fashion using 0 and 2-0 Vicryl. Skin was closed using running 3-0 nylon suture. Sterile Xeroform, 4x4s, and Webril were used to cover the incision. Tay wrap and cold pack were placed over this. The patient's anesthesia was reversed without difficulty. He was taken to the PACU in stable condition. Intended weightbearing will be weightbearing as tolerated. Intended DVT prophylaxis will be Coumadin with a Lovenox bridge. [id number]/[facility] #: [id number] [facility]
[2017-09-03] MEDS ORDERED: diPHENhydraMINE IV* 50 MG/ML 1 ml VIAL (BENADRYL) IV PRN (06:00)
[2017-09-03] MEDS ORDERED: oxyCODONE TAB* 5 MG TAB PO PRN (06:00)
[2017-09-03] MEDS ORDERED: Ondansetron TAB* 4 MG PO PRN (06:00)
[2017-09-03] MEDS ORDERED: oxyCODONE/Acetamin 5/325 MG* TAB PO PRN (06:00)
[2017-09-03 06:19] LABS: ABS Basophils 0 10^3/ul (0-0.2); ABS Eosinophils 0 10^3/ul (0-0.6); ABS Lymphocytes 0.8 10^3/ul (1.0-4.8); ABS Monocytes 0.7 10^3/ul (0-0.8); ABS Neutrophils 6.6 10^3/ul (1.5-7.7); ABS Nucleated RBC 0 10^3/ul; Eosinophil % 0 % (0-6); Hematocrit 30 % (42-52); Hemoglobin 10.3 g/dl (14.0-18.0); Lymphocyte % 9.7 % (25-47); Mean Corpuscular HGB Conc 34 g/dl (31-36); Mean Corpuscular Hemoglobin 32 pg (27-31); Mean Corpuscular Volume 93 fL (80-94); Mean Platelet Volume 9 um3 (7.4-10.4); Nucleated Red Blood Cells % 0; Platelet Count 143 10^3/ul (150-450); Red Blood Count 3.21 10^6/ul (4.0-5.4); Red Cell Distribution Width 14 % (10.5-15); White Blood Count 8.1 10^3/ul (3.5-10.8)
[2017-09-03 06:29] LABS: INR 1.09 (0.77-1.02)
[2017-09-03] MEDS: ceFAZolin 1 GM VIAL(*) 1 GM in NS 0.9% 50 ML* 50 ML IVPB SCH ×2 (06:31→14:15)
[2017-09-03] MEDS: oxyCODONE/Acetamin 5/325 MG* TAB PO PRN ×4 (06:39→22:05)
[2017-09-03 06:42] LABS: EGFR Non-African American 47.3 (>60)
[2017-09-03] MEDS: Albuterol HFA INHALER* 8 gm MDI INH PRN (07:40)
[2017-09-03] MEDS: Mometasone/Formoter 200/5 MDI INH SCH ×2 (07:41→22:06)
[2017-09-03] MEDS: CMCS Midodrine (NF) 5 MG TAB PO SCH (08:46)
[2017-09-03] MEDS: Docusate CAP* 100 MG PO SCH ×2 (08:46→20:56)
[2017-09-03] MEDS: Magnesium Hydroxide LIQ* 30 ML UDC PO SCH ×2 (08:46→20:56)
[2017-09-03] MEDS: Omeprazole CAP* 20 MG PO SCH (08:52)
--- NOTE | 2017-09-03 09:11 | PN ---
Progress Note - Progress Note Date of Service: 09/03/17 SOAP: Subjective: 82 y/o male s/p L revision TKA by DR. Goodwin, uncomplicated. VSs afebrile. patient admits to confusion, denies pain. Objective: General- Well appearing, resting in bed comfortably, + confused MSK- dressing intact, NAD, drain removed without difficulty, tip intact, + DF/ PF b/l, neg homans b/l, PT 2+ b/l. Vital Signs Temp 97.7 F 09/03/17 11:46 Pulse 73 09/03/17 11:46 Resp 18 09/03/17 12:14 BP 120/50 09/03/17 11:46 Pulse Ox 94 09/03/17 11:46 Intake & Output 09/02/17 09/03/17 09/03/17 18:59 06:59 18:59 Intake Total 2400 874 Output Total 800 425 Balance 1600 449 Weight 96.887 kg Intake: IV Fluids 2400 574 ABX - CEFAZOLIN 54 LR 2300 520 NS 50ML, Cefazolin 2G 100 Oral 300 Output: Melchor 400 425 Estimated Blood Loss 400 Assessment: Stable 82 y/o male s/p L revision TKA by DR. Goodwin, uncomplicated. Plan: - DVT prophylaxis- coumadin, lovenox. Coumadin 8mg tonight. - elevated creatinine- Continue to monitor, repeat BMP tomorrow - Continue ABX today - H&H stable - HYpotension- discussed with hospitalist, ? anes effects on baseline hypotension, continue to monior Acetaminophen (Tylenol Tab*) 650 mg PO Q4H PRN PRN Reason: PAIN OR TEMPERATURE Albuterol (Ventolin Hfa Inhaler*) 1 puff INH Q6H PRN PRN Reason: COUGH Last Admin: 09/03/17 07:40 Dose: 1 puff Albuterol (Ventolin 2.5 Mg/3 Ml Neb.Sheyla*) 2.5 mg INH Q2H PRN PRN Reason: SOB/WHEEZING Atorvastatin Calcium (Lipitor*) 20 mg PO QPM [facility] Bisacodyl (Dulcolax Supp*) 10 mg KS DAILY PRN PRN Reason: constipation Cyclobenzaprine HCl (Flexeril Tab*) 10 mg PO TID PRN PRN Reason: SPASMS Diphenhydramine HCl (Benadryl Iv*) 12.5 mg IV Q6H PRN PRN Reason: PRURITIS Docusate Sodium (Colace Cap*) 100 mg PO BID [facility] Last Admin: 09/03/17 08:46 Dose: 100 mg Enoxaparin Sodium (Lovenox(*)) 30 mg SUBCUT Q24H [facility] Last Admin: 09/03/17 12:16 Dose: 30 mg Cefazolin Sodium 1 gm/ Sodium (Chloride) 50 mls @ 200 mls/hr IVPB Q8H [facility] Stop: 09/03/17 14:44 Last Admin: 09/03/17 06:31 Dose: 200 mls/hr Lactated Ringer's (Lactated Ringers 1000 Ml Bag*) 1,000 mls @ 100 mls/hr IV PER RATE [facility] Last Admin: 09/03/17 10:10 Dose: 100 mls/hr Ketorolac Tromethamine (Toradol Inj*) 15 mg IV Q6H PRN PRN Reason: PAIN Stop: 09/05/17 02:44 Lactulose (Lactulose*) 30 ml PO Q6H PRN PRN Reason: constipation Magnesium Hydroxide (Milk Of Magnesia Liq*) 30 ml PO BID [facility] Last Admin: 09/03/17 08:46 Dose: 30 ml Magnesium Hydroxide (Milk Of Magnesia Liq*) 30 ml PO Q6H PRN PRN Reason: constipation Midodrine (Midodrine (Nf)) 5 mg PO QAM [facility] Last Admin: 09/03/17 08:46 Dose: 5 mg Mometasone Furoate/Formoterol Fumar (Dulera 200/5 Mdi*) 2 puff INH BID [facility] Last Admin: 09/03/17 07:41 Dose: 2 puff Morphine Sulfate (Morphine Inj (Syringe)*) 2 mg IV Q2H PRN PRN Reason: PAIN Omeprazole (Prilosec Cap*) 40 mg PO QAM [facility] Last Admin: 09/03/17 08:52 Dose: 40 mg Ondansetron HCl (Zofran Tab*) 4 mg PO Q6H PRN PRN Reason: NAUSEA Oxycodone HCl (Roxycodone Tab*) 10 mg PO Q4H PRN PRN Reason: SEVERE PAIN Oxycodone/Acetaminophen (Percocet 5/325 Tab*) 2 tab PO Q4H PRN PRN Reason: PAIN Last Admin: 09/03/17 12:14 Dose: 2 tab Oxycodone/Acetaminophen (Percocet 5/325 Tab*) 1 tab PO Q4H PRN PRN Reason: PAIN Pharmacy Profile Note (Scopolamine Patch Remove*) 1 note PATCH OFF .AFTER 72 HOURS PRN PRN Reason: nausea Stop: 09/05/17 14:47 Polyethylene Glycol/Electrolytes (Miralax*) 17 gm PO DAILY PRN PRN Reason: Constipation Scopolamine (Transderm-Scop 1.5 Mg Patch*) 1 patch TRANSDERM Q72H PRN PRN Reason: nausea
--- NOTE | 2017-09-03 09:40 | PN ---
Progress Note - Progress Note Date of Service: 09/03/17 Note: Anesthesia duramorph follow up. Patient still has excellent pain control. He was hypotensive this AM when he was sitting. There was about 300ml in his drain. I ordered him a 500 ml bolus of LR. Neuro ok, -N/V, -LUTZ. s/p TKR continue oral meds.
--- NOTE | 2017-09-03 12:08 | RAD ---
INDICATION: Cough. Rhonchi COMPARISON: July 28, 2017 TECHNIQUE: An AP portable view obtained at 1140 hours is submitted. FINDINGS: Bones/Soft Tissues: There are no acute bony findings. Cardiomediastinal: The cardiomediastinal silhouette is normal. Lungs: There is mild hypoventilation in the left lung base. The lung yap are otherwise clear. Pleura: There may be a small left-sided effusion. Other: None IMPRESSION: MILD HYPERVENTILATION LEFT LUNG BASE WITH SUSPECTED SMALL EFFUSION
[2017-09-03] MEDS: Enoxaparin(*) 30 MG/0.3 ML SYR SUBCUT SCH (12:16)
[2017-09-03] MEDS: Aspirin EC Low Dose* 81 MG TAB.EC PO SCH (14:13)
--- NOTE | 2017-09-03 15:39 | PN ---
Subjective Date of Service: 09/03/17 Interval History: Patient states that his pain in his knee is well controlled. Patient complains of pain in lower back which is chronic. Patient complains of cough which has been going on since May intermittently. Patient denies wheezing, other cold symptoms, or increased use of his inhaler. Patient states the cough is productive occasionally but denies blood or colored sputum. Patient denies F/C, N/V, abdominal pain, diarrhea, constipation, dysuria, urinary retention, frequency, or other pain. Patient complains of several months of leg weakness and decreased exercise tolerance. Family History: Unchanged from Admission Social History: Unchanged from Admission Past Medical History: Unchanged from Admission Objective Active Medications: Acetaminophen (Tylenol Tab*) 650 mg PO Q4H PRN PRN Reason: PAIN OR TEMPERATURE Albuterol (Ventolin Hfa Inhaler*) 1 puff INH Q6H PRN PRN Reason: COUGH Last Admin: 09/03/17 07:40 Dose: 1 puff Albuterol (Ventolin 2.5 Mg/3 Ml Neb.Sheyla*) 2.5 mg INH Q2H PRN PRN Reason: SOB/WHEEZING Aspirin (Aspirin Ec Low Dose*) 81 mg PO DAILY [facility] Last Admin: 09/03/17 14:13 Dose: 81 mg Atorvastatin Calcium (Lipitor*) 20 mg PO QPM [facility] Bisacodyl (Dulcolax Supp*) 10 mg [place] DAILY PRN PRN Reason: constipation Cyclobenzaprine HCl (Flexeril Tab*) 10 mg PO TID PRN PRN Reason: SPASMS Diphenhydramine HCl (Benadryl Iv*) 12.5 mg IV Q6H PRN PRN Reason: PRURITIS Docusate Sodium (Colace Cap*) 100 mg PO BID [facility] Last Admin: 09/03/17 08:46 Dose: 100 mg Enoxaparin Sodium (Lovenox(*)) 30 mg SUBCUT Q24H [facility] Last Admin: 09/03/17 12:16 Dose: 30 mg Lactated Ringer's (Lactated Ringers 1000 Ml Bag*) 1,000 mls @ 100 mls/hr IV PER RATE [facility] Last Admin: 09/03/17 10:10 Dose: 100 mls/hr Ketorolac Tromethamine (Toradol Inj*) 15 mg IV Q6H PRN PRN Reason: PAIN Stop: 09/05/17 02:44 Lactulose (Lactulose*) 30 ml PO Q6H PRN PRN Reason: constipation Magnesium Hydroxide (Milk Of Magnesia Liq*) 30 ml PO BID [facility] Last Admin: 09/03/17 08:46 Dose: 30 ml Magnesium Hydroxide (Milk Of Magnesia Liq*) 30 ml PO Q6H PRN PRN Reason: constipation [facility] Last Admin: 09/03/17 08:46 Dose: 5 mg Mometasone Furoate/Formoterol Fumar (Dulera 200/5 Mdi*) 2 puff INH BID [facility] Last Admin: 09/03/17 07:41 Dose: 2 puff Morphine Sulfate (Morphine Inj (Syringe)*) 2 mg IV Q2H PRN PRN Reason: PAIN Omeprazole ([facility]ilosec Cap*) [facility] Last Admin: 09/03/17 08:52 Dose: 40 mg Ondansetron HCl (Zofran Tab*) 4 mg PO Q6H PRN PRN Reason: NAUSEA Oxycodone HCl (Roxycodone Tab*) 10 mg PO Q4H PRN PRN Reason: SEVERE PAIN Oxycodone/Acetaminophen (Percocet 5/325 Tab*) 2 tab PO Q4H PRN PRN Reason: PAIN Last Admin: 09/03/17 12:14 Dose: 2 tab Oxycodone/Acetaminophen (Percocet 5/325 Tab*) 1 tab PO Q4H PRN PRN Reason: PAIN Pharmacy Profile Note (Scopolamine Patch Remove*) 1 note PATCH OFF .AFTER 72 HOURS PRN PRN Reason: nausea Stop: 09/05/17 14:47 Pharmacy Profile Note (Coumadin Daily Reminder*) 1 note FOLLOW UP 1700 [facility] Polyethylene Glycol/Electrolytes (Miralax*) 17 gm PO DAILY PRN PRN Reason: Constipation Scopolamine (Transderm-Scop 1.5 Mg Patch*) 1 patch TRANSDERM Q72H PRN PRN Reason: nausea Warfarin Sodium (Coumadin Tab(*)) 8 mg PO ONCE@1700 ONE PRN Reason: Protocol Stop: 09/03/17 17:01 Vital Signs - 8 hr 01/26/18 01/26/18 01/26/18 07:51 07:52 07:55 Temperature 97.6 F Pulse Rate 73 Respiratory 18 18 Rate Blood Pressure 108/44 (mmHg) O2 Sat by Pulse 96 97 Oximetry 09/03/17 09/03/17 09/03/17 08:54 09:14 09:24 Temperature 97.0 F Pulse Rate 81 81 Respiratory 18 Rate Blood Pressure 80/44 121/52 (mmHg) O2 Sat by Pulse 100 95 Oximetry 09/03/17 09/03/17 09/03/17 10:13 11:46 12:14 Temperature 97.7 F Pulse Rate 72 73 Respiratory 16 18 Rate Blood Pressure 107/39 120/50 (mmHg) O2 Sat by Pulse 96 94 Oximetry 09/03/17 14:14 Temperature Pulse Rate Respiratory 18 Rate Blood Pressure (mmHg) O2 Sat by Pulse Oximetry Oxygen Devices in Use Now: None Appearance: Patient is an 82yo male who appears stated age and is sitting in the bed in NAD. Eyes: No Scleral Icterus, PERRLA Ears/Nose/Mouth/Throat: NL Teeth, Lips, Gums, Mucous Membranes Moist, - - Pharyngeal erythema without exudate or discharge. Neck: NL Appearance and Movements; NL JVP, Trachea Midline Respiratory: Symmetrical Chest Expansion and Respiratory Effort, - - Rhonchi in LLL Cardiovascular: NL Sounds; No Murmurs; No JVD, RRR, No Edema Abdominal: NL Sounds; No Tenderness; No Distention, No Hepatosplenomegaly Lymphatic: No Cervical Adenopathy Extremities: No Edema, No Clubbing, Cyanosis, - - Pulses 2+ B/L with preserved strength and sensation. Skin: No Nodules or Sclerosis, - - Surgical incision on left knee covered with bulky dressing and cryounit. Neurological: Alert and Oriented x 3, NL Sensation, NL Muscle Strength and Tone Result Diagrams: 09/03/17 05:37 09/03/17 05:37 Microbiology and Other Data: Microbiology 09/02/17 15:04 Wound Gram Stain - Final Tissue - Knee Left Tissue Culture - Preliminary No Growth Day 1 09/02/17 15:04 Anaerobic Culture - Preliminary Wound - Knee Left No Growth Day 1 09/02/17 15:04 Gram Stain - Final Knee Left Wound Culture - Preliminary No Growth Day 1 Assess/Plan/Problems-Billing Assessment: Patient is an 82yo male with a PMH significant for asthma, carotid artery stenosis with stenting, GERD, Hypotension, and prostate cancer who is POD #1 after a Left total knee revision and is doing well. - Patient Problems (1) Status post total left knee replacement Current Visit: Yes Status: Acute Code(s): Z96.652 - PRESENCE OF LEFT ARTIFICIAL KNEE JOINT SNOMED Code(s): 8331560989936 Comment: Patient is POD#1. Patient had hypotension with symptomatic orthostasis. Patient was bolused with increase in BP. Patient denies any dizziness at rest. Patient is on midodrine daily at home which will be continued. H/H stable. Urinating, no BM yet. Passing flatus. (2) Asthma Current Visit: Yes Status: Acute Code(s): J45.909 - UNSPECIFIED ASTHMA, UNCOMPLICATED SNOMED Code(s): 680243590 Comment: Patient has no wheezing. Patient has cough which has been present intermittently since May. Likely represents cough variant asthma. Albuterol PRN. CXR shows hypoinflation with rhonchi on exam. Procalcitonin and CRP pending. (3) Carotid artery stenosis Current Visit: Yes Status: Acute Code(s): I65.29 - OCCLUSION AND STENOSIS OF UNSPECIFIED CAROTID ARTERY SNOMED Code(s): 16232272 Comment: Patient had carotid artery stenting in May and is on Plavix and ASA. Contacted neurologist at [facility]. Recommended to just continue ASA while on Coumadin. (4) Hypotension Current Visit: Yes Status: Acute Comment: Patient has chronic hypotension controlled with midodrine. Improved hypotension this morning with fluids. Monitor and continue midodrine at home dose. (5) Prostate cancer Current Visit: Yes Status: Acute Code(s): C61 - MALIGNANT NEOPLASM OF PROSTATE SNOMED Code(s): 753132691 Comment: No signs of urinary obstruction. (6) DVT prophylaxis Current Visit: Yes Status: Acute Code(s): VNA4181 - SNOMED Code(s): 297489515 Comment: Lovenox to Coumadin per ortho. (7) Full code status Current Visit: Yes Status: Acute Code(s): Z78.9 - OTHER SPECIFIED HEALTH STATUS SNOMED Code(s): 771949533 Status and Disposition: Inpatient. Discharge when medically stable.
[2017-09-03] MEDS ORDERED: Warfarin TAB(*) 4 MG PO ONE (17:00)
[2017-09-03] MEDS: Atorvastatin* 20 MG TAB PO SCH (17:18)
[2017-09-03] MEDS: Benzonatate CAP* 100 MG PO PRN (18:19)
[2017-09-04] MEDS: oxyCODONE/Acetamin 5/325 MG* TAB PO PRN ×5 (04:19→21:12)
[2017-09-04 05:17] LABS: Hematocrit 27 % (42-52); Hemoglobin 9.5 g/dl (14.0-18.0); Mean Platelet Volume 9 um3 (7.4-10.4); Platelet Count 132 10^3/ul (150-450)
[2017-09-04 05:30] LABS: EGFR Non-African American 53.3 (>60)
[2017-09-04 05:31] LABS: INR 1.43 (0.77-1.02)
--- NOTE | 2017-09-04 07:48 | PN ---
Progress Note - Progress Note Date of Service: 09/04/17 SOAP: Subjective: pt OOB to chair with complaints of mild left knee pain Objective: Vital Signs Temp Pulse Resp BP Pulse Ox 97.4 F 86 16 152/64 98 09/04/17 03:22 09/04/17 03:22 09/04/17 06:15 09/04/17 03:22 09/04/17 03:22 Laboratory Last Values WBC 8.1 10^3/ul (3.5-10.8) 09/03/17 05:37 RBC 3.21 10^6/ul (4.0-5.4) L 09/03/17 05:37 Hgb 9.5 g/dl (14.0-18.0) L 09/04/17 04:54 Hct 27 % (42-52) L 09/04/17 04:54 MCV 93 fL (80-94) 09/03/17 05:37 MCH 32 pg (27-31) H 09/03/17 05:37 MCHC 34 g/dl (31-36) 09/03/17 05:37 RDW 14 % (10.5-15) 09/03/17 05:37 Plt Count 132 10^3/ul (150-450) L 09/04/17 04:54 MPV 9 um3 (7.4-10.4) 09/04/17 04:54 Neut % (Auto) 81.8 % (38-83) 09/03/17 05:37 Lymph % (Auto) 9.7 % (25-47) L 09/03/17 05:37 [place] % (Auto) 8.4 % (1-9) 09/03/17 05:37 Eos % (Auto) 0 % (0-6) 09/03/17 05:37 Baso % (Auto) 0.1 % (0-2) 09/03/17 05:37 Absolute Neuts (auto) 6.6 10^3/ul (1.5-7.7) 09/03/17 05:37 Absolute Lymphs (auto) 0.8 10^3/ul (1.0-4.8) L 09/03/17 05:37 Absolute Monos (auto) 0.7 10^3/ul (0-0.8) 09/03/17 05:37 Absolute Eos (auto) 0 10^3/ul (0-0.6) 09/03/17 05:37 Absolute Basos (auto) 0 10^3/ul (0-0.2) 09/03/17 05:37 Absolute Nucleated RBC 0 10^3/ul 09/03/17 05:37 Nucleated RBC % 0 09/03/17 05:37 INR (Anticoag Therapy) 1.43 (0.77-1.02) H 09/04/17 04:54 Sodium 131 mmol/L (133-145) L 09/04/17 04:54 Potassium 4.1 mmol/L (3.5-5.0) 09/04/17 04:54 Chloride 101 mmol/L (101-111) 09/04/17 04:54 Carbon Dioxide 22 mmol/L (22-32) 09/04/17 04:54 Anion Gap 8 mmol/L (2-11) 09/04/17 04:54 BUN 31 mg/dL (6-24) H 09/04/17 04:54 Creatinine 1.29 mg/dL (0.67-1.17) H 09/04/17 04:54 Est GFR ( Amer) 68.6 (>60) 09/04/17 04:54 Est GFR (Non-Af Amer) 53.3 (>60) 09/04/17 04:54 BUN/Creatinine Ratio 24.0 (8-20) H 09/04/17 04:54 Glucose 130 mg/dL (70-100) H 09/04/17 04:54 Calcium 8.1 mg/dL (8.6-10.3) L 09/04/17 04:54 C-Reactive Protein 17.83 mg/L (< 5.00) H 09/03/17 05:37 Procalcitonin 0.1 ng/mL (<0.6) 09/03/17 05:37 incision: c/d; dressing changed PE: NVI Assessment: s/p left TK revision Plan: 1) continue PT/OT- WBAT 2) continue Lovenox/Coumadin 3) continue current care, may need rehab placement
[2017-09-04] MEDS: Docusate CAP* 100 MG PO SCH ×2 (08:24→21:15)
[2017-09-04] MEDS: Omeprazole CAP* 20 MG PO SCH (08:24)
[2017-09-04] MEDS: CMCS Midodrine (NF) 5 MG TAB PO SCH (08:24)
[2017-09-04] MEDS: Aspirin EC Low Dose* 81 MG TAB.EC PO SCH (08:24)
[2017-09-04] MEDS: Magnesium Hydroxide LIQ* 30 ML UDC PO SCH ×2 (08:26→21:15)
[2017-09-04] MEDS: Mometasone/Formoter 200/5 MDI INH SCH ×2 (08:27→21:52)
[2017-09-04] MEDS: Morphine INJ* 2 MG/ML 1 ML SYRINGE (TWO MG - NEW SYRINGE VERSION) IV PRN ×2 (09:28→18:31)
[2017-09-04] MEDS: Enoxaparin(*) 30 MG/0.3 ML SYR SUBCUT SCH (12:22)
--- NOTE | 2017-09-04 13:33 | PN ---
Subjective Date of Service: 09/04/17 Interval History: Patient complains of 10/10 pain in leg. Worse than anything he has ever felt. Patient states he had poor sleep. Patient is confused and lethargic today. Patient unable to tell date, said year was 2001. Knew who the president is. Patient has been agitated over night per the nursing staff and his . Patient denies new weakness, dizziness, changes in vision, or other new abnormality. Patient denies CP, SOB, N/V, abdominal pain, F/C, Diarrhea, Constipation, Dysuria, frequency or other pain. Patient complains of intermittent coughing fits and cannot identify benefit from anti-tussives. However, patient did not cough during interview today. Family History: Unchanged from Admission Social History: Unchanged from Admission Past Medical History: Unchanged from Admission Objective Active Medications: Acetaminophen (Tylenol Tab*) 650 mg PO Q4H PRN PRN Reason: PAIN OR TEMPERATURE Albuterol (Ventolin Hfa Inhaler*) 1 puff INH Q6H PRN PRN Reason: COUGH Last Admin: 09/03/17 07:40 Dose: 1 puff Albuterol (Ventolin 2.5 Mg/3 Ml Neb.Sheyla*) 2.5 mg INH Q2H PRN PRN Reason: SOB/WHEEZING Aspirin (Aspirin Ec Low Dose*) 81 mg PO DAILY [facility] Last Admin: 09/04/17 08:24 Dose: 81 mg Atorvastatin Calcium (Lipitor*) 20 mg PO QPM [facility] Last Admin: 09/03/17 17:18 Dose: 20 mg Benzonatate (Tessalon Cap*) 100 mg PO BID PRN PRN Reason: COUGH Last Admin: 09/03/17 18:19 Dose: 100 mg Bisacodyl (Dulcolax Supp*) 10 mg AL DAILY PRN PRN Reason: constipation Cyclobenzaprine HCl (Flexeril Tab*) 10 mg PO TID PRN PRN Reason: SPASMS Last Admin: 09/04/17 10:29 Dose: 10 mg Diphenhydramine HCl (Benadryl Iv*) 12.5 mg IV Q6H PRN PRN Reason: PRURITIS Docusate Sodium (Colace Cap*) 100 mg PO BID [facility] Last Admin: 09/04/17 08:24 Dose: 100 mg Enoxaparin Sodium (Lovenox(*)) 30 mg SUBCUT Q24H [facility] Last Admin: 09/04/17 12:22 Dose: 30 mg Lactated Ringer's (Lactated Ringers 1000 Ml Bag*) 1,000 mls @ 100 mls/hr IV PER RATE [facility] Last Admin: 09/03/17 10:10 Dose: 100 mls/hr Ketorolac Tromethamine (Toradol Inj*) 15 mg IV Q6H PRN PRN Reason: PAIN Stop: 09/05/17 02:44 Lactulose (Lactulose*) 30 ml PO Q6H PRN PRN Reason: constipation Magnesium Hydroxide (Milk Of Magnesia Liq*) 30 ml PO BID [facility] Last Admin: 09/04/17 08:26 Dose: 30 ml Magnesium Hydroxide (Milk Of Magnesia Liq*) 30 ml PO Q6H PRN PRN Reason: constipation Midodrine (Midodrine (Nf)) 5 mg PO QAM [facility] Last Admin: 09/04/17 08:24 Dose: 5 mg Mometasone Furoate/Formoterol Fumar (Dulera 200/5 Mdi*) 2 puff INH BID [facility] Last Admin: 09/04/17 08:27 Dose: 2 puff Morphine Sulfate (Morphine Inj (Syringe)*) 2 mg IV Q2H PRN PRN Reason: PAIN Last Admin: 09/04/17 09:28 Dose: 2 mg Omeprazole (Prilosec Cap*) 40 mg PO QAM [facility] Last Admin: 09/04/17 08:24 Dose: 40 mg Ondansetron HCl (Zofran Tab*) 4 mg PO Q6H PRN PRN Reason: NAUSEA Last Admin: 09/04/17 04:42 Dose: 4 mg Oxycodone HCl (Roxycodone Tab*) 10 mg PO Q4H PRN PRN Reason: SEVERE PAIN Oxycodone/Acetaminophen (Percocet 5/325 Tab*) 2 tab PO Q4H PRN PRN Reason: PAIN Last Admin: 09/04/17 12:22 Dose: 2 tab Oxycodone/Acetaminophen (Percocet 5/325 Tab*) 1 tab PO Q4H PRN PRN Reason: PAIN Pharmacy Profile Note (Coumadin Daily Reminder*) 1 note FOLLOW UP 1700 [facility] Polyethylene Glycol/Electrolytes (Miralax*) 17 gm PO DAILY PRN PRN Reason: Constipation Warfarin Sodium (Coumadin Tab(*)) 8 mg PO ONCE@1700 ONE PRN Reason: Protocol Stop: 09/04/17 17:01 Vital Signs - 8 hr 09/04/17 09/04/17 09/04/17 06:15 07:24 07:26 Temperature 98.2 F Pulse Rate 86 Respiratory 16 18 18 Rate Blood Pressure 143/61 (mmHg) O2 Sat by Pulse 97 Oximetry 09/04/17 09/04/17 09/04/17 08:24 09:28 10:29 Temperature Pulse Rate Respiratory 18 18 16 Rate Blood Pressure (mmHg) O2 Sat by Pulse Oximetry 09/04/17 09/04/17 09/04/17 12:22 13:16 13:17 Temperature Pulse Rate Respiratory 16 18 18 Rate Blood Pressure (mmHg) O2 Sat by Pulse Oximetry Oxygen Devices in Use Now: None Appearance: Patient is an 82yo male who appears stated age and is sitting in the bed in mild distress from pain. Eyes: No Scleral Icterus, PERRLA Ears/Nose/Mouth/Throat: NL Teeth, Lips, Gums, Clear Oropharnyx, Mucous Membranes Moist Neck: NL Appearance and Movements; NL JVP, Trachea Midline Respiratory: Symmetrical Chest Expansion and Respiratory Effort, Clear to Auscultation Cardiovascular: NL Sounds; No Murmurs; No JVD, RRR, No Edema Abdominal: NL Sounds; No Tenderness; No Distention, No Hepatosplenomegaly Lymphatic: No Cervical Adenopathy Extremities: No Edema, No Clubbing, Cyanosis Skin: No Nodules or Sclerosis, - - Pulses 2+ in feet. Surgical incision covered by bulky dressing. Neurological: Alert and Oriented x 3, NL Sensation, NL Muscle Strength and Tone , - - CN II-XII intact. Strength 5/5 in upper and lower extremity. Reflexes 2+ in B/L biceps and achilles areas. Result Diagrams: 09/04/17 04:54 09/04/17 04:54 Microbiology and Other Data: Microbiology 09/02/17 15:04 Wound Gram Stain - Final Tissue - Knee Left Tissue Culture - Preliminary No Growth Day 1 09/02/17 15:04 Anaerobic Culture - Preliminary Wound - Knee Left No Growth Day 1 09/02/17 15:04 Gram Stain - Final Knee Left Wound Culture - Preliminary No Growth Day 1 Assess/Plan/Problems-Billing Assessment: Patient is an 82yo male with a PMH significant for asthma, carotid artery stenosis with stenting, GERD, Hypotension, and prostate cancer who is POD #2 after a Left total knee revision and is delirious and in extreme pain. - Patient Problems (1) Status post total left knee replacement Current Visit: Yes Status: Acute Code(s): Z96.652 - PRESENCE OF LEFT ARTIFICIAL KNEE JOINT SNOMED Code(s): 2116838533303 Comment: Patient is POD#2. Patient had no more hypotension. Patient denies any dizziness at rest. Patient is on midodrine daily at home which will be continued. H/H stable. Urinating, no BM yet. Passing flatus. Patient is in the worst pain of his life, however he has good pain relief with medication. Patient is delirious , likely from hospital stay, pain, lack of sleep, pain medications, and underlying dementia. Continue supportive care with reorientation and minimize interruptions and (2) Asthma Current Visit: Yes Status: Acute Code(s): J45.909 - UNSPECIFIED ASTHMA, UNCOMPLICATED SNOMED Code(s): 845368512 Comment: Patient has no wheezing. Patient has cough which has been present intermittently since May. Likely represents cough variant asthma. Albuterol PRN. CXR shows hypoinflation with rhonchi on exam. Procalcitonin .1. Will not treat with antibiotics. Tessalon for cough. (3) Carotid artery stenosis Current Visit: Yes Status: Acute Code(s): I65.29 - OCCLUSION AND STENOSIS OF UNSPECIFIED CAROTID ARTERY SNOMED Code(s): 80197102 Comment: Patient had carotid artery stenting in May and is on Plavix and ASA. Contacted neurologist at [place]. Recommended to just continue ASA while on Coumadin. (4) Hypotension Current Visit: Yes Status: Acute Comment: Patient has chronic hypotension controlled with midodrine. Monitor and continue midodrine at home dose. (5) Prostate cancer Current Visit: Yes Status: Acute Code(s): C61 - MALIGNANT NEOPLASM OF PROSTATE SNOMED Code(s): 222188763 Comment: No signs of urinary obstruction. (6) Delirium Current Visit: Yes Status: Acute Code(s): R41.0 - DISORIENTATION, UNSPECIFIED SNOMED Code(s): 6945620 Comment: Continue supportive measures. Reorient frequently. Decrease pain medication as able. No signs of new CVA, no need for repeat imaging at this time. (7) JAHAIRA (acute kidney injury) Current Visit: Yes Status: Acute Code(s): N17.9 - ACUTE KIDNEY FAILURE, UNSPECIFIED SNOMED Code(s): 91387179 Comment: Acute on chronic kidney failure. Improving, near baseline, will monitor. (8) DVT prophylaxis Current Visit: Yes Status: Acute Code(s): GRR1693 - SNOMED Code(s): 316872279 Comment: Lovenox to Coumadin per ortho. (9) Full code status Current Visit: Yes Status: Acute Code(s): Z78.9 - OTHER SPECIFIED HEALTH STATUS SNOMED Code(s): 203130715 Status and Disposition: Inpatient. Discharge when medically stable.
[2017-09-04] MEDS: Benzonatate CAP* 100 MG PO PRN (16:41)
[2017-09-04] MEDS ORDERED: Warfarin TAB(*) 4 MG PO ONE (17:00)
[2017-09-04] MEDS: Atorvastatin* 20 MG TAB PO SCH (17:45)
[2017-09-05] MEDS: Benzonatate CAP* 100 MG PO PRN (02:24)
[2017-09-05] MEDS: oxyCODONE/Acetamin 5/325 MG* TAB PO PRN ×2 (03:41→08:13)
[2017-09-05 03:54] VITALS: BP 143/48
[2017-09-05 06:00] LABS: ABS Basophils 0 10^3/ul (0-0.2); ABS Eosinophils 0.1 10^3/ul (0-0.6); ABS Lymphocytes 1.1 10^3/ul (1.0-4.8); ABS Monocytes 1.3 10^3/ul (0-0.8); ABS Neutrophils 5.1 10^3/ul (1.5-7.7); ABS Nucleated RBC 0 10^3/ul; Eosinophil % 1.4 % (0-6); Hematocrit 27 % (42-52); Hemoglobin 9.2 g/dl (14.0-18.0); Lymphocyte % 14.7 % (25-47); Mean Corpuscular HGB Conc 35 g/dl (31-36); Mean Corpuscular Hemoglobin 32 pg (27-31); Mean Corpuscular Volume 93 fL (80-94); Mean Platelet Volume 9 um3 (7.4-10.4); Nucleated Red Blood Cells % 0; Platelet Count 134 10^3/ul (150-450); Red Blood Count 2.87 10^6/ul (4.0-5.4); Red Cell Distribution Width 14 % (10.5-15); White Blood Count 7.6 10^3/ul (3.5-10.8)
[2017-09-05 06:14] LABS: EGFR Non-African American 59.1 (>60)
[2017-09-05 06:24] LABS: INR 2.99 (0.77-1.02)
[2017-09-05] MEDS: Aspirin EC Low Dose* 81 MG TAB.EC PO SCH (08:12)
[2017-09-05] MEDS: CMCS Midodrine (NF) 5 MG TAB PO SCH (08:12)
[2017-09-05] MEDS: Docusate CAP* 100 MG PO SCH (08:12)
[2017-09-05] MEDS: Omeprazole CAP* 20 MG PO SCH (08:12)
[2017-09-05] MEDS: Magnesium Hydroxide LIQ* 30 ML UDC PO SCH (08:13)
[2017-09-05] MEDS: Mometasone/Formoter 200/5 MDI INH SCH (08:13)
--- NOTE | 2017-09-07 06:48 | DS ---
DISCHARGE SUMMARY: DATE OF ADMISSION: 09/02/17 DATE OF DISCHARGE: 09/05/17 ATTENDING PHYSICIAN: Shyla Goodwin MD PRINCIPAL DIAGNOSIS: Left knee pain status post left total knee replacement. SECONDARY DIAGNOSES: 1. Chronic obstructive pulmonary disease and asthma. 2. Gastroesophageal reflux disease. 3. Chronic hypotension. 4. History of prostate cancer. 5. 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 6. Bilateral carotid stenosis. 7. History of shoulder surgery. 8. Status post appendectomy. PRINCIPAL PROCEDURE: Left knee revision, total knee arthroplasty. HISTORY OF PRESENT ILLNESS: Gregor is an 82-year-old male who has had a longstanding history of le ft knee pain. He had a left total knee replacement in 1998 due to osteoarthritis. He had developed left knee pain with periprosthetic loosening and osteolysis. He was seen by Dr. Goodwin and had electe d to proceed with left total knee replacement and revision of both tibial and femoral components with Dr. Goodwin on 09/02/17. HOSPITAL COURSE: The patient was admitted to the hospital on 09/02/17 in anticipation of a left tota l knee replacement, revision of both tibial and femoral components. He was taken to the operating ro om and underwent surgery without any complications. He was taken to the recovery room and subsequent ly the surgical stay unit in a stable condition. He has participated in physical therapy and occupat ional therapy. He has had daily hemoglobin and hematocrit drawn. Hemoglobin was 8.8, hematocrit was 26 on the day of discharge. He has had daily INRs drawn. His INR was 2.99 on the day of discharge, and Coumadin was held. His vital signs have remained stable throughout the hospital course including remaining afebrile and he will be discharged to [facility] on 09/05/17 in a stable condition. DISCHARGE INSTRUCTIONS: Weightbearing as tolerated. Wound care, okay to shower. No bathing, swimmin g, submerging wounds. Use gentle soap, pat dry, cover with gauze, Tay wrap or tape. Call orthopedic office for increased pain or fever. Go to ER with shortness of breath or chest pain. Regular diet. Increase fluids and fiber to prevent constipation. Continue to use stool softeners. Call office i f no bowel movement within 48 hours. Continue physical therapy and occupational therapy exercises as shown. [facility] nurse to do wound checks. [facility] nurse to draw blood for INR on Mondays and . Coumadin dosing, to hold Coumadin tonight and redraw per protocol. Antibiotics required prior to any dental work. Follow up with Dr. Goodwin in 10 to 14 days. Call for an appointment. MARIANGEL BLANCO [id number]/[facility] #: [id number]
== END 2017-09-05 10:20 | DRG 467 ==
LOC: AA 11:24 → SSU 20:50
PROVIDERS: ADMIT Orthopaedic Surgery Adult Reconstructive Orthopaedic Surgery; ATTEND Orthopaedic Surgery Adult Reconstructive Orthopaedic Surgery
PROC: 0SPW0JZ Removal of Synthetic Substitute from Left Knee Joint, Tibial Surface, Open Approach (ICD-10-PCS; 2017-09-02)
PROC: 0SRW0J9 Replacement of Left Knee Joint, Tibial Surface with Synthetic Substitute, Cemented, Open Approach (ICD-10-PCS; 2017-09-02)
PROC: 0SRU0J9 Replacement of Left Knee Joint, Femoral Surface with Synthetic Substitute, Cemented, Open Approach (ICD-10-PCS; 2017-09-02)
PROC: 0SPU0JZ Removal of Synthetic Substitute from Left Knee Joint, Femoral Surface, Open Approach (ICD-10-PCS; principal; 2017-09-02 14:00)
DX: T84.033A Mechanical loosening of internal left knee prosthetic joint, initial encounter (principal); N17.9 Acute kidney failure, unspecified; I95.9 Hypotension, unspecified; C61 Malignant neoplasm of prostate; I65.23 Occlusion and stenosis of bilateral carotid arteries; T84.053A Periprosthetic osteolysis of internal prosthetic left knee joint, initial encounter; F03.90 Unspecified dementia, unspecified severity, without behavioral disturbance, psychotic disturbance, mood disturbance, and anxiety; J44.9 Chronic obstructive pulmonary disease, unspecified; X58.XXXA Exposure to other specified factors, initial encounter; K21.9 Gastro-esophageal reflux disease without esophagitis; M19.90 Unspecified osteoarthritis, unspecified site; R41.0 Disorientation, unspecified; N18.9 Chronic kidney disease, unspecified; Z96.652 Presence of left artificial knee joint; Z79.82 Long term (current) use of aspirin; Z79.899 Other long term (current) drug therapy; Z87.891 Personal history of nicotine dependence
CPT/HCPCS: 36415; 71045; 76000; 80048; 80053; 83735; 84145; 85014; 85018; 85025; 85049; 85610; 86140; 87070; 87073; 87205; 88300; 88305; 94640; 94760; A9270-GY; J0690; J1100; J1650; J2001; J2250; J2270; J2405; J2704; J3010

== ENCOUNTER 2017-09-05 08:48 | Inpatient (IN) | payer MEDICARE, BC ==
[2017-09-05] MEDS ORDERED: Bisacodyl SUPP* 10 MG SUPP PR PRN (09:27)
[2017-09-05] MEDS ORDERED: Al Hydrox/Mg Hydrox/Simet LIQ* 30 ML UDC PO PRN (09:27)
[2017-09-05] MEDS ORDERED: Senna TAB PO PRN (09:27)
[2017-09-05] MEDS ORDERED: Polyethylene Glycol 3350* 17 GM PACKET PO PRN (09:34)
[2017-09-05] MEDS ORDERED: oxyCODONE/Acetamin 5/325 MG* TAB PO PRN (09:41)
[2017-09-05] MEDS: Albuterol HFA INHALER* 8 gm MDI INH PRN (12:44)
[2017-09-05] MEDS: GuaiFENesin DM* 5 ML UDC PO PRN ×2 (14:12→20:10)
[2017-09-05] MEDS: oxyCODONE/Acetamin 5/325 MG* TAB PO PRN ×2 (14:14→20:09)
--- NOTE | 2017-09-05 17:13 | PN ---
Progress Note - Progress Note Date of Service: 09/05/17 SOAP: Subjective: Pt sitting comfortably in chair with no complaints. Vital Signs: Temp Pulse Resp BP Pulse Ox 98.9 F 79 18 137/47 98 09/05/17 16:10 09/05/17 16:10 09/05/17 16:14 09/05/17 16:10 09/05/17 16:10 Objective: Dressing C/D/I. Calves soft, nontender. DP pulses 2+. Sensation intact Assessment: s/p revision left TKA Plan: OOB, PT/OT Pain Control DVT prophylaxis Awaiting PRMU
[2017-09-05] MEDS: Atorvastatin* 20 MG TAB PO SCH (17:47)
[2017-09-05] MEDS: Benzonatate CAP* 100 MG PO SCH (20:09)
[2017-09-05] MEDS: Docusate CAP* 100 MG PO SCH (20:09)
--- NOTE | 2017-09-05 21:32 | HP ---
CC: Dr. Debby Bowers; Dr. Goodwin. * REHABILITATION ADMISSION NOTE: DATE OF ADMISSION: 09/05/17. PRIMARY CARE PROVIDER: Dr. Debby Bowers. ORTHOPEDIC SURGEON: Dr. Goodwin. CHIEF COMPLAINT/REASON FOR ADMISSION: Left total knee replacement revision. HISTORY OF PRESENT ILLNESS: This is an 82-year-old man who originally had a left total knee replacement in 1998 due to osteoarthritis. He started to develop left knee pain and was noted to have some periprosthetic loosening and osteolysis. He was seen by Dr. Goodwin and ultimately taken to the OR 09/02/17 for the left total knee replacement revision of both tibial and femoral components. Postoperatively, he was put on Lovenox bridging to Coumadin for DVT prophylaxis. He is chronically on Plavix and full dose aspirin for a carotid stent and the Plavix was put on hold and aspirin is down to 81 mg dose. This was done after phone consultation with his neurologist at [facility]. He has had some acute postoperative anemia, but has not required blood transfusion to date. Today, his hemoglobin is 9.2 and his hematocrit is 27. He was started on Coumadin for DVT prophylaxis and his INR today is 2.99 after 2 doses of 8 mg and the Coumadin is on hold tonight and Lovenox is being discontinued. On postop day #1, he had issues with hypotension. He is chronically on midodrine for chronic hypotension. This was restarted and he seemed to respond well. He was noted to be confused postoperatively. He was diagnosed with acute postoperative delirium. This was felt likely secondary to anesthesia, being outside of his normal environment as well as pain medications. He seems to be clearing this morning compared to yesterday and the day before. He has had a cough dating back to at least a week preoperatively. Chest x-ray on 09/03/17 showed mild hyperinflation of the left lung base and possibly a small effusion. He has been treated with Tessalon Perles. He is also noted to have acute kidney injury, on top of chronic kidney injury postoperatively. He is just about back to his baseline. Creatinine today is 1.18. Prior to admission, he was independent with ADLs, and ambulating without any assistive device. With occupational therapy, he has required moderate amount of assistance for lower body dressing and to assistance for toileting. With physical therapy, he has required 2 assist with a rolling walker for transfers. He has not ambulated yet. PAST MEDICAL HISTORY: 1. COPD and asthma. 2. GERD. 3. Osteoarthritis status post left total knee replacement in 1998 and periprosthetic osteolysis status post revision on 09/02/17, see history of present illness. 4. Chronic hypotension, on midodrine. 5. History of prostate cancer status post TURP. 6. 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 7. Bilateral carotid stenosis. 8. History of shoulder surgery 9. Status post appendectomy. 10. Status post tonsillectomy. MEDICATIONS: Currently: 1. Plavix 75 mg daily is on hold until he is off of Coumadin. 2. Aspirin 81 mg daily. Normally, he is on 325 daily when he is not on Coumadin. 3. Lipitor 20 mg daily (this is a substitute for simvastatin 40 daily). 4. Omeprazole 40 mg daily. 5. Midodrine 5 mg q.a.m. 6. Dulera 200/5 mcg 2 puffs b.i.d. 7. ProAir 1 puff q.6 hours p.r.n. 8. Tylenol p.r.n. 9. Tessalon Perles 100 mg b.i.d. 10. Colace 100 mg b.i.d. 11. Percocet 1 to 2 tablets q.4 hours p.r.n. pain. 12. Warfarin for DVT prophylaxis, currently on hold for tonight. ALLERGIES: No known drug allergies. FAMILY HISTORY: Father had COPD. SOCIAL HISTORY: He lives with his in [place]. 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 He used to smoke in the past but quit several years ago. No alcohol. If he cannot make decisions for himself, his is his healthcare proxy, her name is Gladys. Their home is 1 level and there are 7 to 9 steps to enter. REVIEW OF SYSTEMS: See history of present illness and past medical history. He has upper dentures. He had a bowel movement this morning. He has some urinary incontinence. Remainder of the 10 systems review was completed. No other significant findings. PHYSICAL EXAMINATION GENERAL: Well developed, well nourished, appearing stated age. MENTAL STATUS: no acute distress, alert and appropriate. He is oriented to himself and his reason for admission. He can follow multiple step commands with repeating. He has some hearing loss. VITAL SIGNS: Temperature 98.5, pulse 77, respirations 16, oxygen saturation 100 % on room air, blood pressure 143/48. HEENT: Normocephalic, atraumatic. Oropharynx is clear. Moist mucous membranes. LUNGS: Clear to auscultation bilaterally. HEART: Regular rate and rhythm. ABDOMEN: Active bowel sounds. Soft, nontender, nondistended. EXTREMITIES: No clubbing or cyanosis. He does have some edema in left greater than right leg and foot. No calf pain. Negative Homans. MUSCULOSKELETAL: He has functional range of motion of all of his major joints. He cannot fully extend his left knee at this time. NEUROLOGIC EXAM: Cranial nerves II through XII intact. Upper and lower extremity motor 5/5 bilaterally with limited testing of the left hip and knee. Sensation is intact in all 4 extremities. LABORATORY DATA: This morning, sodium is 131, BUN 25, creatinine 1.18. INR 2.99. White blood cell count 7.6, hemoglobin 9.2, hematocrit 27, platelets 134. IMPRESSION: This is an 82-year-old man status post left total knee replacement revision complicated by acute postoperative delirium. He will be admitted to [facility], so he can return to living with his . PLAN: 1. Left total knee replacement revision. He will have followup with Dr. Goodwin. Continue weightbearing as tolerated with precautions. Dressing changes. 2. DVT prophylaxis. He is currently therapeutic on Coumadin after receiving 2 doses of 8 mg. The INR will likely be even higher tomorrow and in the supratherapeutic range. Coumadin will be held tonight and INR will be checked daily for stabilization. The Coumadin will need to be restarted as the INR starts to fall. 3. Acute postoperative delirium. Limit narcotic pain medications. Personal alarm and keep him close to the nurses station. 4. Acute postoperative anemia. Follow up labs. 5. Acute on chronic kidney injury. Encouraged p.o. fluids and follow up labs. 6. Cough. Continue Tessalon and add Robitussin p.r.n. 7. Hypotension. Continue midodrine. 8. History of stenting. Plavix is on hold and aspirin is downt to a baby dose. He can restart Plavix and full dose aspirin once he goes off of Coumadin. 9. Impaired mobility. He will be seen by Physical Therapy for bed mobility, transfer, gait and stair training using an assistive device. 10. Impaired self-care. He will be seen by Occupational Therapy for ADL training and equipment evaluation. 11. Advance directives. His is his healthcare proxy if he cannot make decisions for himself. He requests to not be resuscitated. I discussed this with his , and she states this is in agreement with what they I have discussed in the past.CLIFF completed. 12. Estimated length of stay is 7 to 10 days, and he will be discussed at interdisciplinary plan of care meeting on 09/07/17. [id number]/[facility] #: [id number] GOPAL
[2017-09-05] MEDS: Mometasone/Formoter 200/5 MDI INH SCH (22:17)
[2017-09-06] MEDS: GuaiFENesin DM* 5 ML UDC PO PRN ×3 (01:12→20:12)
[2017-09-06] MEDS: oxyCODONE/Acetamin 5/325 MG* TAB PO PRN ×3 (01:12→20:11)
[2017-09-06] MEDS: Acetaminophen TAB* 325 MG PO PRN ×2 (05:06→16:59)
[2017-09-06] MEDS: Omeprazole CAP* 20 MG PO SCH (05:06)
[2017-09-06 07:15] LABS: ABS Basophils 0 10^3/ul (0-0.2); ABS Eosinophils 0.2 10^3/ul (0-0.6); ABS Lymphocytes 1.2 10^3/ul (1.0-4.8); ABS Monocytes 1.1 10^3/ul (0-0.8); ABS Neutrophils 5.5 10^3/ul (1.5-7.7); ABS Nucleated RBC 0 10^3/ul; Eosinophil % 1.9 % (0-6); Hematocrit 26 % (42-52); Hemoglobin 8.8 g/dl (14.0-18.0); Lymphocyte % 14.7 % (25-47); Mean Corpuscular HGB Conc 34 g/dl (31-36); Mean Corpuscular Hemoglobin 32 pg (27-31); Mean Corpuscular Volume 93 fL (80-94); Mean Platelet Volume 9 um3 (7.4-10.4); Nucleated Red Blood Cells % 0; Platelet Count 160 10^3/ul (150-450); Red Blood Count 2.77 10^6/ul (4.0-5.4); Red Cell Distribution Width 14 % (10.5-15)
[2017-09-06 07:40] LABS: EGFR Non-African American 64.8 (>60); INR 2.69 (0.77-1.02)
[2017-09-06] MEDS: Mometasone/Formoter 200/5 MDI INH SCH ×2 (08:24→20:11)
[2017-09-06] MEDS: Docusate CAP* 100 MG PO SCH ×2 (08:26→20:10)
[2017-09-06] MEDS: CMCS - Midodrine (NF) 5 MG TAB PO SCH (08:26)
[2017-09-06] MEDS: Aspirin EC Low Dose* 81 MG TAB.EC PO SCH (08:26)
[2017-09-06] MEDS: Benzonatate CAP* 100 MG PO SCH ×2 (08:26→20:10)
[2017-09-06] MEDS: Atorvastatin* 20 MG TAB PO SCH (16:33)
[2017-09-06] MEDS ORDERED: Warfarin TAB(*) 2 MG PO SCH (17:00)
--- NOTE | 2017-09-06 17:48 | PN ---
Progress Note - Progress Note Date of Service: 09/06/17 Note: Gregor visited. Therapy notes read and reviewed. He is clearing slightly today and seems to be doing better. INR down today. Will resume Coumadin. Current Medications Acetaminophen (Tylenol Tab*) 650 mg PO Q6H PRN PRN Reason: FEVER > 101 Last Admin: 09/06/17 16:59 Dose: 650 mg Al Hydrox/Mg Hydrox/Simethicone (Maalox Plus*) 30 ml PO Q6H PRN PRN Reason: INDIGESTION Albuterol (Ventolin Hfa Inhaler*) 1 puff INH Q6H PRN PRN Reason: SOB/WHEEZING Last Admin: 09/05/17 12:44 Dose: 1 puff Aspirin (Aspirin Ec Low Dose*) 81 mg PO DAILY [facility] Last Admin: 09/06/17 08:26 Dose: 81 mg Atorvastatin Calcium (Lipitor*) 20 mg PO 1700 [facility] Last Admin: 09/06/17 16:33 Dose: 20 mg Benzonatate (Tessalon Cap*) 100 mg PO BID [facility] Last Admin: 09/06/17 08:26 Dose: 100 mg Bisacodyl (Dulcolax Supp*) 10 mg ID DAILY PRN PRN Reason: CONSTIPATION Docusate Sodium (Colace Cap*) 100 mg PO BID [facility] Last Admin: 09/06/17 08:26 Dose: 100 mg Guaifenesin/Dextromethorphan (Robitussin Dm*) 5 ml PO Q4H PRN PRN Reason: COUGH Last Admin: 09/06/17 08:26 Dose: 5 ml Midodrine (Midodrine (Nf)) 5 mg PO 0900 [facility] PRN Reason: Protocol Last Admin: 09/06/17 08:26 Dose: 5 mg Mometasone Furoate/Formoterol Fumar (Dulera 200/5 Mdi*) 2 puff INH BID [facility] Last Admin: 09/06/17 08:24 Dose: 2 puff Omeprazole (Prilosec Cap*) 40 mg PO DAILY@0600 [facility] Last Admin: 09/06/17 05:06 Dose: 40 mg Oxycodone/Acetaminophen (Percocet 5/325 Tab*) 1 tab PO Q4H PRN PRN Reason: PAIN Last Admin: 09/06/17 08:25 Dose: 1 tab Oxycodone/Acetaminophen (Percocet 5/325 Tab*) 2 tab PO Q4H PRN PRN Reason: PAIN Polyethylene Glycol/Electrolytes (Miralax*) 17 gm PO DAILY PRN PRN Reason: CONSTIPATION Senna (Senokot Tab*) 2 tab PO BEDTIME PRN PRN Reason: CONSTIPATION Warfarin Sodium (Coumadin Tab(*)) 2 mg PO DAILY@1700 [facility] PRN Reason: Protocol Last Admin: 09/06/17 16:33 Dose: 2 mg Laboratory Results - last 24 hr 09/06/17 09/06/17 09/06/17 07:00 07:00 07:00 WBC 8.0 RBC 2.77 L Hgb 8.8 L Hct 26 L MCV 93 MCH 32 H MCHC 34 RDW 14 Plt Count 160 MPV 9 Neut % (Auto) 68.9 Lymph % (Auto) 14.7 L [place] % (Auto) 14.0 H Eos % (Auto) 1.9 Baso % (Auto) 0.5 Absolute Neuts (auto) 5.5 Absolute Lymphs (auto) 1.2 Absolute Monos (auto) 1.1 H Absolute Eos (auto) 0.2 Absolute Basos (auto) 0 Absolute Nucleated RBC 0 Nucleated RBC % 0 INR (Anticoag Therapy) 2.69 H Sodium 131 L Potassium 4.6 Chloride 102 Carbon Dioxide 23 Anion Gap 6 BUN 25 H Creatinine 1.09 Est GFR ( Amer) 83.3 Est GFR (Non-Af Amer) 64.8 BUN/Creatinine Ratio 22.9 H Glucose 121 H Calcium 8.4 L Total Bilirubin 0.50 AST 23 ALT 14 Alkaline Phosphatase 42 Total Protein 5.8 L Albumin 3.0 L Globulin 2.8 Albumin/Globulin Ratio 1.1 Vital Signs Temp Pulse Resp BP Pulse Ox 98.4 F 73 18 150/65 98 09/06/17 16:21 09/06/17 16:21 09/06/17 16:21 09/06/17 16:21 09/06/17 16:21 EXAM: LUNGS: Scattered ronchi HEART: reg rhythm ABDOMEN: Soft, +BS EXTREMITIES: Left knee wound clean ASSESSMENT/PLAN: 1. Revision, left TKA: PT/OT 2. Post op Delirium: Holding opioids, Tylenol for pain 3. DVT Prophylaxis: Coumadin, 2 mg tonight. Check INR in am 4. CKD: Creatinine stable 5. Acute blood loss anemia: Stable 6. Cough: Dulera/Robitussin/Tessalon
[2017-09-06] MEDS ORDERED: QUEtiapine TAB* 25 MG PO PRN (23:47)
[2017-09-07] MEDS: Acetaminophen TAB* 325 MG PO PRN ×2 (00:23→20:00)
[2017-09-07] MEDS ORDERED: QUEtiapine TAB* 25 MG PO PRN (02:00)
[2017-09-07] MEDS: GuaiFENesin DM* 5 ML UDC PO PRN ×3 (04:06→19:50)
[2017-09-07] MEDS: Omeprazole CAP* 20 MG PO SCH (04:44)
[2017-09-07 05:39] LABS: INR 2.19 (0.77-1.02)
[2017-09-07] MEDS: Benzonatate CAP* 100 MG PO SCH ×2 (09:14→19:52)
[2017-09-07] MEDS: CMCS - Midodrine (NF) 5 MG TAB PO SCH (09:14)
[2017-09-07] MEDS: Aspirin EC Low Dose* 81 MG TAB.EC PO SCH (09:14)
[2017-09-07] MEDS: oxyCODONE/Acetamin 5/325 MG* TAB PO PRN (09:15)
[2017-09-07] MEDS: Mometasone/Formoter 200/5 MDI INH SCH ×2 (09:19→21:21)
[2017-09-07] MEDS: Docusate CAP* 100 MG PO SCH ×2 (09:39→19:52)
[2017-09-07] MEDS ORDERED: LORazepam TAB(*) 0.5 MG PO ONE ×2 (10:42→12:37)
[2017-09-07] MEDS: LORazepam TAB(*) 0.5 MG ONE ×2 (10:55→12:10)
--- NOTE | 2017-09-07 12:50 | PMRUTEAM ---
PMRU: Goals Current Status: Nursing: Current Status Skin Deviations [Buttocks] Other Skin Deviations [Left Knee] Incision Skin Deviation Description [ redness Buttocks] Skin Deviation Description [ incision red and warm. bleeding noted at proximal Left Knee] end. telfa, cj and anai wrap applied Bladder Current Status HNV this shift Bowel Current Status bm this am Nutrition Current Status adequate Medication Current Status NEEDS REINFORCEMENT Physical Therapy: Current Status Bed Mobility Assistance Mod Assist Transfer Moblility Assistance Mod Assist x 2 Transfer/Bed Mobility Rolling Walker Recommended Devices Ambulation Assistance Min Assist Ambulation Assistive Devices Rolling Walker Number of Feet Patient 50' Ambulated Stairs Assistance N/A Stairs Recommended Devices Straight Cane,One Rail Number of Stairs Occupational Therapy: Current Status Upper Body Dressing Supervision Lower Body Dressing Max Asst Bathing Max Asst Toileting Max Asst Eating Independent Rec Therapy: Current Status Summary of Assessment and RT assessment complete and pt. is aware of RT Clinical Impression services. Pt. spends time in the afternoon with his and was open to leisure visits. Treatment Goals Pt. will engage in leisure activities while on the unit. Treatment Plan Provide RT services and encourage involvement. Social Work: Current Status Discharge Plan return home with home care svs and family support Potential for Family Training pt's is interested in family training Anticipated Discharge Home Destination Discharge With home care svs and family support Nutrition: Current Status Monitoring Visited pt today. Pt reports that while the food here is good, his appetite is "terrible." Intake at meals ranges from 75-100%, so pt appears to be meeting needs despite his report. Denies difficulty chewing/swallowing. Reports UBW of 215- 225#; c/w current wt. Provided instruction on Coumadin/Vit K. Goals: Physical Therapy: Initial Goals Bed Mobility Assistance Independent Transfer Mobility Assistance Independent Transfer/Bed Mobility None Recommended Devices Ambulation Independent Ambulation Recommended Devices Rolling Walker Ambulation Distance 250 Stairs Assistance Supervision Stair Recommended Devices Two Rails Number of Stairs 12 Home Exercise Program Independent Assistance Physical Therapy: Updated Goals Transfer/Bed Mobility Rolling Walker Recommended Devices Occupational Therapy: Initial Goals Goals to be Completed in (Days 7-10 ) Upper Body Bathing Routine Independent Lower Body Bathing Routine Modified Independent with Upper Body Dressing Routine Independent Lower Body Dressing Routine Modified Independent with Toilet Hygeine and Clothing Modified Independent with Management Routine Toilet Transfer Routine Modified Independent with Step-In Shower Transfer Modified Independent with Routine Functional Transfers for ADL Modified Independent with Grooming Routine Independent Feeding Routine Independent Nursing: Goals Bladder Goal independent Bowel Goal independent Nutrition Goal 100% OF ALL MEALS Medication Goal SUPERVISION Nutrition: Goals Intervention Goals 1. adequate po intake to support post-op healing and lean body mass without add'l wt gain 2. regulation of post-op bowel pattern; no c/o constipation (or diarrhea) 3. Any further ed needs will be addressed as needed Speech: Goals Speech Goal 1 Ongoing assessment for cognitive-linguistic by Social Work: Goals Discharge Plan return home with home care svs and family support Potential for Family Training pt's is interested in family training Anticipated Discharge Home Destination Discharge With home care svs and family support Care Plan: Care Plan ADL's - Improve/Maintain Start: 09/06/17 15:18 Freq: DAILY Status: Active Target: Protocol: Activity Type Activity Date Activity User E-Sign Co-Sign Detail Recorded Client Recorded Date Recorded By Document 09/06/17 15:18 [id number] 09/06/17 15:18 [id number] 09/06/17 15:18 PMRU Outcome: ADL's/ADL Transfers Orders/Interventions Occupational Therapy Evaluation & Treatment Communication Tool in Patient Room Device Yes Patient to receive OT 5x/wk for 60-120 Therex min/day Self Care Management Group Therapy UE/LE ADL's with Assist Yes: Michelet ADL Transfers with Assist Yes: Michelet Toileting: Transfers,Clothing Management Yes: Michelet ,Hygeine w/Assist Light Kitchen/Laundry w/Assist No Progression Toward Outcome/Goals Progressing Outcome/Goals Met Pt participated in OT evaluation with cues for encouragement and extensive education on rehab program including OT role and OT POC . Cardiovascular- Improve/Maintain Start: 09/05/17 11:56 Freq: DAILY Status: Active Target: Protocol: Activity Type Activity Date Activity User E-Sign Co-Sign Detail Recorded Client Recorded Date Recorded By Document 09/07/17 12:22 [id number] [facility] [place] 09/07/17 12:26 [id number] 09/07/17 12:22 PMRU Outcome: Cardiovascular Vital Signs q Shift for 48hrs Then BID Yes Daily Weight Ordered No Current Cardiovascular Outcome/Goal Maintain/ Achieve Baseline HR, BP , Perfusion Improve HR Within Prescribed Parameters Maintain/ Improve Perfusion Maintain/ Achieve Hemodynamic Stability Free of Abnormal Cardiac Symptoms Improve/ Maintain Cardiac Output Progression Toward Outcome/Goal Progressing Communication-Improve/Maintain Start: 09/05/17 11:56 Freq: DAILY Status: Active Target: Protocol: Activity Type Activity Date Activity User E-Sign Co-Sign Detail Recorded Client Recorded Date Recorded By Document 09/06/17 21:35 [id number] 09/06/17 21:37 [id number] 09/06/17 21:35 PMRU Outcome: Communication/Cognitive Status Outcome/Goals Use Comm Tools/ Devices Makes Needs Known Effectively Progression Toward Outcomes/Goals Progressing Coping/Psych-Improve/Maintain Start: 09/05/17 11:56 Freq: DAILY Status: Active Target: Protocol: Activity Type Activity Date Activity User E-Sign Co-Sign Detail Recorded Client Recorded Date Recorded By Document 09/07/17 12:22 [id number] [email or web address] 09/07/17 12:26 [id number] 09/07/17 12:22 PMRU Outcome: Coping/Psychosocial Coping Outcome/Goals Verbalization of Acceptance of Rehab Admit Verbalization of Sense of Control Over Health Status Utilization of Appropriate Problem Solving Techniques Willingness to Participate in Treatment Plan and Basic Needs Utilization of Available Support Systems Absence of Destructive Behavior to Self/Others Psychosocial Outcome/Goals Maintain/ Improve Emotional Health Demonstrates Knowledge of Healthy Coping Mechanisms Available Cooperate/ Participate in Plan Other Outcome/Goals patient confused Progression Toward Outcome/Goals - Not Progressing Coping Progression Toward Outcome/Goals - Progressing Psychosocial Discharge Planning - Improve/Maintain Start: 09/05/17 11:56 Freq: DAILY Status: Active Target: Protocol: Activity Type Activity Date Activity User E-Sign Co-Sign Detail Recorded Client Recorded Date Recorded By Document 09/06/17 21:35 [id number] 09/06/17 21:37 [id number] 09/06/17 21:35 PMRU Outcome: Discharge Planning Identify Patient Needs yes Update Patient Family Yes Outcome/Goals Demonstrates Understanding of Discharge Plan Progression Toward Outcome/Goals Progressing Education-Improve/Maintain Start: 09/05/17 11:56 Freq: DAILY Status: Active Target: Protocol: Activity Type Activity Date Activity User E-Sign Co-Sign Detail Recorded Client Recorded Date Recorded By Document 09/07/17 12:22 [id number] [email or web address] 09/07/17 12:26 [id number] 09/07/17 12:22 PMRU Outcome: Education Outcome/Goals Demonstrate/ Verbalize Understanding of Written Discharge Instructions Demonstrates Skills Encourage Questions Progression Toward Outcome/Goals Progressing /GI-Improve/Maintain Start: 09/05/17 11:56 Freq: DAILY Status: Active Target: Protocol: Activity Type Activity Date Activity User E-Sign Co-Sign Detail Recorded Client Recorded Date Recorded By Document 09/07/17 12:22 [id number] [email or web address] 09/07/17 12:26 [id number] 09/07/17 12:22 PMRU Outcome: Genitourinary/ Gastrointestinal Genitourinary- Outcome/Goals Maintain/ Achieve Adequate Urinary Output Remain Free of Hospital- Acquired UTI Gastrointestinal-Outcome/Goals Maintain/ Achieve Bowel Regularity in Accordance with Pt's Baseline Remain Free of Emesis Prevent Constipation Bowel Regularity at Home Laxatives as Ordered Progression Toward Outcome/Goals - Progressing Progression Toward Outcome/Goals - GI Progressing Medication Administration Start: 09/05/17 11:56 Freq: DAILY Status: Active Target: Protocol: Activity Type Activity Date Activity User E-Sign Co-Sign Detail Recorded Client Recorded Date Recorded By Document 09/07/17 12:22 [id number] [email or web address] 09/07/17 12:26 [id number] 09/07/17 12:22 PMRU Outcome: Medication Administration Assess Patient Knowledge/Teach Med Yes Education for all Meds Outcome/Goals Patient Independent with Medication Administration at Home Demonstrates Understanding Progression Towards Outcome/Goals Progressing Is Patient Going Home on Lovenox? No Mobility- Improve/Maintain Start: 09/05/17 11:56 Freq: DAILY Status: Active Target: Protocol: Activity Type Activity Date Activity User E-Sign Co-Sign Detail Recorded Client Recorded Date Recorded By Document 09/06/17 14:35 [id number] [email or web address] 09/06/17 14:35 [id number] 09/06/17 14:35 PMRU Outcome: Mobility Physical Therapy Evaluation and Yes Treatment Activity OOB with Assistance Yes WBAT Yes Device Yes Assistance Yes Patient to be seen 5x/wk for 60-120 min/ Therex day for: Mobility Training Gait Training Balance Outcome/Goals Maintain/ Achieve Baseline Mobility Status Improve Mobility Status Demonstrates Proper Use of Assistive Devices Free from Complications of Immobility Progression Toward Outcome/Goals Progressing Bed Mobility Yes Transfers Yes Gait x ft Yes: 250 Up/Down Stairs Yes: 12 Neurological- Improve/Maintain Start: 09/05/17 11:56 Freq: DAILY Status: Active Target: Protocol: Activity Type Activity Date Activity User E-Sign Co-Sign Detail Recorded Client Recorded Date Recorded By Document 09/07/17 12:22 [id number] [email or web address] 09/07/17 12:26 09/07/17 12:22 PMRU Outcome: Neurological Weakness/Aphasia Weakness Outcome/Goals Maintain/ Achieve Baseline Neurological Status Improve Neurological Status Prevent Avoidable Neurological Decline Maintain/ Improve Strength/ROM Progression Toward Outcome/Goals Progressing Pain/Comfort- Improve/Maintain Start: 09/05/17 11:56 Freq: DAILY Status: Active Target: Protocol: Activity Type Activity Date Activity User E-Sign Co-Sign Detail Recorded Client Recorded Date Recorded By Document 09/07/17 12:22 [id number] [email or web address] 09/07/17 12:26 09/07/17 12:22 PMRU Outcome: Pain/Comfort Outcome/Goals Demonstrates Knowledge and Use of Available Comfort Measures Achieves Acceptable Comfort/Pain Level as Determined by Patient/Condit Maintain Comfort Level Allowing Patient to Fully Participate in Rehab Progression Toward Outcome/Goals Progressing Respiratory - Improve/Maintain Start: 09/05/17 11:56 Freq: DAILY Status: Active Target: Protocol: Activity Type Activity Date Activity User E-Sign Co-Sign Detail Recorded Client Recorded Date Recorded By Document 09/07/17 12:22 [id number] [email or web address] 09/07/17 12:26 [id number] 09/07/17 12:22 PMRU Outcome: Respiratory Does Patient Have a Trach No Outcome/Goals Maintain/ Improve O2 Sat per MD Order Maintain/ Improve Baseline Respiratory Status Maintain/ Improve Activity Tolerance Other Outcome/Goals patient so b with exertion Progression Toward Outcome/Goals Progressing Safety- Improve/Maintain Start: 09/05/17 11:56 Freq: DAILY Status: Active Target: Protocol: Activity Type Activity Date Activity User E-Sign Co-Sign Detail Recorded Client Recorded Date Recorded By Document 09/07/17 12:22 [id number] [email or web address] 09/07/17 12:26 [id number] 09/07/17 12:22 PMRU Outcome: Safety Outcome/Goals Remain Free of Injury or Harm Cooperates with Safety Measures for Least Restrictive Environment Prevent Falls/ Injury Other Outcome/Goals patient confused and attepts to get up independently Progression Toward Outcome/Goals Not Progressing Skin- Improve/Maintain Start: 09/05/17 11:56 Freq: DAILY Status: Active Target: Protocol: Activity Type Activity Date Activity User E-Sign Co-Sign Detail Recorded Client Recorded Date Recorded By Document 09/07/17 12:22 [id number] [facility] [place] 09/07/17 12:26 [id number] 09/07/17 12:22 PMRU Outcome: Skin Skin Risk Level Low Skin Orders Turn/Position q2hr While in Bed Outcome/Goals Maintain/ Improve Skin Intergrity Free from Decubitus Maintain/ Improve Wound Status Surgical Incisions Healing Progression Toward Outcome/Goals Progressing Medicine Note: Length of Stay: 10 days Anticipated Discharge Destination: Home Tentative Discharge Date: 09/17/17 Discharged to: Home
--- NOTE | 2017-09-07 17:01 | PN ---
Progress Note Date of Service: 09/07/17 Note: KARTHIKEYAN BARILLAS was visited. Therapy notes read and reviewed. He was discussed in interdisciplinary team rounds. He had a restless night and received a dose of Seroquel last night but still did not settle down or sleep. This am he was very confused and agitated. I have stopped his opioids. He received two doses of Ativan and is sleeping now. He spiked to 101.4. Will try to get a U/A. He has had a chronic cough. Will start Levaquin. Current Medications: Active Medications Generic Name Dose Route Start Last Admin Trade Name Freq PRN Reason Stop Dose Admin Acetaminophen 650 mg 09/05/17 09:27 09/07/17 00:23 Tylenol Tab* PO 650 mg Q6H PRN Administration FEVER > 101 Al Hydrox/Mg Hydrox/Simethicone 30 ml 09/05/17 09:27 Maalox Plus* PO Q6H PRN INDIGESTION Albuterol 1 puff 09/05/17 09:40 09/05/17 12:44 Ventolin Hfa Inhaler* INH 1 puff Q6H PRN Administration SOB/WHEEZING Aspirin 81 mg 09/06/17 09:00 09/07/17 09:14 Aspirin Ec Low Dose* PO 81 mg DAILY [facility] Administration Atorvastatin Calcium 20 mg 09/05/17 17:00 09/06/17 16:33 Lipitor* PO 20 mg 1700 [facility] Administration Benzonatate 100 mg 09/05/17 21:00 09/07/17 09:14 Tessalon Cap* PO 100 mg BID [facility]ATT Administration Bisacodyl 10 mg 09/05/17 09:27 Dulcolax Supp* [place] DAILY PRN CONSTIPATION Docusate Sodium 100 mg 09/05/17 21:00 09/07/17 09:39 Colace Cap* PO Not Given BID WYATT Guaifenesin/Dextromethorphan 5 ml 09/05/17 09:35 09/07/17 09:14 Robitussin Dm* PO 5 ml Q4H PRN Administration COUGH Midodrine 5 mg 09/06/17 09:00 09/07/17 09:14 Midodrine (Nf) PO 5 mg 0900 [facility]YATT Administration Protocol Mometasone Furoate/Formoterol Fumar 2 puff 09/05/17 21:00 09/07/17 09:19 Dulera 200/5 Mdi* INH 2 puff BID [facility] Administration Omeprazole 40 mg 09/06/17 06:00 09/07/17 04:44 Prilosec Cap* PO 40 mg DAILY@0600 [facility] Administration Polyethylene Glycol/Electrolytes 17 gm 09/05/17 09:34 Miralax* PO DAILY PRN CONSTIPATION Quetiapine Fumarate 12.5 mg 09/07/17 02:00 Seroquel Tab* PO ONCE PRN AGITATION Senna 2 tab 09/05/17 09:27 Senokot Tab* PO BEDTIME PRN CONSTIPATION Warfarin Sodium 3 mg 09/07/17 12:01 Coumadin Tab(*) PO DAILY@1700 [facility] Protocol Vital Signs: Vital Signs Temp Pulse Resp BP Pulse Ox 101.2 F 96 28 122/85 96 09/07/17 16:12 09/07/17 16:12 09/07/17 16:12 09/07/17 16:12 09/07/17 16:12 Lab Results: Laboratory Results - last 24 hr 09/07/17 05:22 INR (Anticoag Therapy) 2.19 H Exam: LUNGS: Coarse BS HEART: reg rhythm ABDOMEN: Soft, +BS EXTREMITIES: Left leg looks clean NEUROLOGIC: Confused. Disoriented. Motor strength baseline in 4 extremities. Assessment/Plan: 09/07/17 16:59 1. Left TKA revision: PT/OT. Tylenol for pain 2. Delirium: Avoid sedative/hypnotics. No opioids. Tylenol for pain. 3. Fever: Could have infection in urine or lungs. Try to obtain sample. CXR tomorrow when less agitated. Levaquin 4. CKD: Stable 5. DVT Prophylaxis: Coumadin. Increase to 3 mg. Check INR 6. Blood loss Anemia: stable 7. Cough: Tessalon. Add Levaquin 8. Advanced directives: DNR. Has MOLST
[2017-09-07] MEDS: Atorvastatin* 20 MG TAB PO SCH (17:32)
[2017-09-07] MEDS: Warfarin TAB(*) 3 MG PO SCH (17:32)
[2017-09-07 17:54] LABS: Urine Appearance Clear; Urine Blood 1+ (Negative); Urine Color Yellow; Urine Ketones Negative (Negative); Urine Protein Negative (Negative); Urine Urobilinogen Negative (Negative)
[2017-09-08] MEDS: GuaiFENesin DM* 5 ML UDC PO PRN ×3 (00:29→11:07)
[2017-09-08] MEDS: Albuterol HFA INHALER* 8 gm MDI INH PRN (00:42)
[2017-09-08] MEDS: Omeprazole CAP* 20 MG PO SCH (05:50)
[2017-09-08 08:23] LABS: ABS Basophils 0 10^3/ul (0-0.2); ABS Eosinophils 0.1 10^3/ul (0-0.6); ABS Monocytes 1.2 10^3/ul (0-0.8); ABS Neutrophils 4.8 10^3/ul (1.5-7.7); ABS Nucleated RBC 0 10^3/ul; Eosinophil % 1.5 % (0-6); Hematocrit 24 % (42-52); Hemoglobin 8.5 g/dl (14.0-18.0); Mean Corpuscular HGB Conc 35 g/dl (31-36); Mean Corpuscular Hemoglobin 32 pg (27-31); Mean Corpuscular Volume 92 fL (80-94); Mean Platelet Volume 8 um3 (7.4-10.4); Nucleated Red Blood Cells % 0; Platelet Count 211 10^3/ul (150-450); Red Blood Count 2.65 10^6/ul (4.0-5.4); Red Cell Distribution Width 14 % (10.5-15); White Blood Count 7.1 10^3/ul (3.5-10.8)
[2017-09-08] MEDS: Aspirin EC Low Dose* 81 MG TAB.EC PO SCH (08:26)
[2017-09-08] MEDS: CMCS - Midodrine (NF) 5 MG TAB PO SCH (08:26)
[2017-09-08] MEDS: Benzonatate CAP* 100 MG PO SCH ×2 (08:26→20:51)
[2017-09-08] MEDS: Docusate CAP* 100 MG PO SCH ×2 (08:26→20:51)
[2017-09-08] MEDS: Levofloxacin TAB* 500 MG PO SCH (08:26)
[2017-09-08] MEDS: Mometasone/Formoter 200/5 MDI INH SCH ×2 (08:28→21:51)
[2017-09-08 08:33] LABS: INR 2.25 (0.77-1.02)
--- NOTE | 2017-09-08 12:53 | RAD ---
HISTORY: Cough, fever COMPARISONS: September 03, 2017 VIEWS: 2: Frontal and lateral views of the chest. FINDINGS: CARDIOMEDIASTINAL SILHOUETTE: The cardiomediastinal silhouette is normal. BLAINE: The blaine are normal. PLEURA: The costophrenic angles are sharp. No pleural abnormalities are noted. LUNG PARENCHYMA: There is patchy alveolar opacification of the lung bases bilaterally. ABDOMEN: The upper abdomen is clear. There is no subphrenic gas. BONES AND SOFT TISSUES: No bone or soft tissue abnormalities are noted. OTHER: None. IMPRESSION: PATCHY BIBASILAR ATELECTASIS VERSUS CONSOLIDATION
[2017-09-08] MEDS: Atorvastatin* 20 MG TAB PO SCH (17:24)
[2017-09-08] MEDS: Warfarin TAB(*) 3 MG PO SCH (17:24)
--- NOTE | 2017-09-08 17:48 | PN ---
Progress Note Date of Service: 09/08/17 Note: KARTHIKEYAN BARILLAS was visited. Therapy notes read and reviewed. Much more oriented and aware today. Will continue to hold opioids. He started Levaquin this am, CXR shows possible infiltrates vs atelectasis. Cough slightly better. Concerned about extension in leg. Current Medications: Active Medications Generic Name Dose Route Start Last Admin Trade Name Freq PRN Reason Stop Dose Admin Acetaminophen 650 mg 09/05/17 09:27 09/07/17 20:00 Tylenol Tab* PO 650 mg Q6H PRN Administration FEVER > 101 Al Hydrox/Mg Hydrox/Simethicone 30 ml 09/05/17 09:27 Maalox Plus* PO Q6H PRN INDIGESTION Albuterol 1 puff 09/05/17 09:40 09/08/17 00:42 Ventolin Hfa Inhaler* INH 1 puff Q6H PRN Administration SOB/WHEEZING Aspirin 81 mg 09/06/17 09:00 09/08/17 08:26 Aspirin Ec Low Dose* PO 81 mg DAILY [facility] Administration Atorvastatin Calcium 20 mg 09/05/17 17:00 09/08/17 17:24 Lipitor* PO 20 mg 1700 [facility] Administration Benzonatate 100 mg 09/05/17 21:00 09/08/17 08:26 Tessalon Cap* PO 100 mg BID [facility] Administration Bisacodyl 10 mg 09/05/17 09:27 Dulcolax Supp* [place] DAILY PRN CONSTIPATION Docusate Sodium 100 mg 09/05/17 21:00 09/08/17 08:26 Colace Cap* PO 100 mg BID [facility] Administration Guaifenesin/Dextromethorphan 5 ml 09/05/17 09:35 09/08/17 11:07 Robitussin Dm* PO 5 ml Q4H PRN Administration COUGH Levofloxacin 500 mg 09/08/17 09:00 09/08/17 08:26 Levaquin Tab* PO 500 mg DAILY [facility] Administration Midodrine 5 mg 09/06/17 09:00 09/08/17 08:26 Midodrine (Nf) PO 5 mg 0900 [facility] Administration Protocol Mometasone Furoate/Formoterol Fumar 2 puff 09/05/17 21:00 09/08/17 08:28 Dulera 200/5 Mdi* INH 2 puff BID [facility] Administration Omeprazole 40 mg 09/06/17 06:00 09/08/17 05:50 Prilosec Cap* PO 40 mg DAILY@0600 [facility] Administration Polyethylene Glycol/Electrolytes 17 gm 09/05/17 09:34 Miralax* PO DAILY PRN CONSTIPATION Quetiapine Fumarate 12.5 mg 09/07/17 02:00 09/07/17 22:25 Seroquel Tab* PO 12.5 mg ONCE PRN Administration AGITATION Senna 2 tab 09/05/17 09:27 Senokot Tab* PO BEDTIME PRN CONSTIPATION Warfarin Sodium 3 mg 09/07/17 12:01 09/08/17 17:24 Coumadin Tab(*) PO 3 mg DAILY@1700 [facility] Administration Protocol Vital Signs: Vital Signs Temp Pulse Resp BP Pulse Ox 98.0 F 72 22 138/58 95 09/08/17 15:34 09/08/17 15:34 09/08/17 15:34 09/08/17 15:34 09/08/17 15:34 Lab Results: Laboratory Results - last 24 hr 09/07/17 09/08/17 09/08/17 17:31 08:10 08:10 WBC 7.1 RBC 2.65 L Hgb 8.5 L Hct 24 L MCV 92 MCH 32 H MCHC 35 RDW 14 Plt Count 211 MPV 8 Neut % (Auto) 67.2 Lymph % (Auto) 14.0 L Wise % (Auto) 16.9 H Eos % (Auto) 1.5 Baso % (Auto) 0.4 Absolute Neuts (auto) 4.8 Absolute Lymphs (auto) 1.0 Absolute Monos (auto) 1.2 H Absolute Eos (auto) 0.1 Absolute Basos (auto) 0 Absolute Nucleated RBC 0 Nucleated RBC % 0 INR (Anticoag Therapy) 2.25 H Urine Color Yellow Urine Appearance Clear Urine pH 6.0 Ur Specific Odell 1.010 Urine Protein Negative Urine Ketones Negative Urine Blood 1+ H Urine Nitrate Negative Urine Bilirubin Negative Urine Urobilinogen Negative Ur Leukocyte Esterase Negative Urine WBC (Auto) Trace(0-5/hpf) Urine RBC (Auto) Trace(0-2/hpf) Ur Squamous Epith Cells Present H Urine Bacteria Absent Urine Glucose Negative Exam: LUNGS: Coarse BS HEART: reg rhythm ABDOMEN: Soft, +BS EXTREMITIES: Left leg looks clean NEUROLOGIC: Alert. oriented to self. Able to move all 4 extremities. Assessment/Plan: 09/08/17 17:48 1. Left TKA revision: PT/OT. Tylenol for pain 2. Delirium: Much better. Avoid sedative/hypnotics. No opioids. Tylenol for pain. 3. Fever: U/A negative. CXR: Consolidation vs Atelectasis. On Levaquin for bronchitis 4. CKD: Stable 5. DVT Prophylaxis: Coumadin, 3 mg. 6. Blood loss Anemia: stable 7. Cough/Bronchitis: Tessalon. Levaquin day #1 8. Advanced directives: DNR. Has MOLST
[2017-09-08] MEDS: Acetaminophen TAB* 325 MG PO PRN (22:29)
[2017-09-09] MEDS: GuaiFENesin DM* 5 ML UDC PO PRN ×4 (01:43→21:54)
[2017-09-09] MEDS: Omeprazole CAP* 20 MG PO SCH (05:00)
[2017-09-09 06:29] LABS: INR 2.63 (0.77-1.02)
[2017-09-09] MEDS: Benzonatate CAP* 100 MG PO SCH ×2 (08:23→20:19)
[2017-09-09] MEDS: Aspirin EC Low Dose* 81 MG TAB.EC PO SCH (08:23)
[2017-09-09] MEDS: CMCS - Midodrine (NF) 5 MG TAB PO SCH (08:23)
[2017-09-09] MEDS: Levofloxacin TAB* 500 MG PO SCH (08:23)
[2017-09-09] MEDS: Mometasone/Formoter 200/5 MDI INH SCH ×2 (08:25→20:19)
[2017-09-09] MEDS: Docusate CAP* 100 MG PO SCH ×2 (08:27→19:53)
[2017-09-09] MEDS: Albuterol HFA INHALER* 8 gm MDI INH PRN ×2 (16:35→21:54)
[2017-09-09] MEDS: Atorvastatin* 20 MG TAB PO SCH (16:35)
[2017-09-09] MEDS ORDERED: Warfarin TAB(*) 2 MG PO SCH (17:00)
--- NOTE | 2017-09-09 17:24 | PN ---
Progress Note Date of Service: 09/09/17 Note: KARTHIKEYAN BARILLAS was visited. Therapy notes read and reviewed. Again, clearer than he was, but still slightly off. His left knee looks clean. Cough persists. Current Medications: Active Medications Generic Name Dose Route Start Last Admin Trade Name Freq PRN Reason Stop Dose Admin Acetaminophen 650 mg 09/05/17 09:27 09/08/17 22:29 Tylenol Tab* PO 650 mg Q6H PRN Administration FEVER > 101 Al Hydrox/Mg Hydrox/Simethicone 30 ml 09/05/17 09:27 Maalox Plus* PO Q6H PRN INDIGESTION Albuterol 1 puff 09/05/17 09:40 09/09/17 16:35 Ventolin Hfa Inhaler* INH 1 puff Q6H PRN Administration SOB/WHEEZING Aspirin 81 mg 09/06/17 09:00 09/09/17 08:23 Aspirin Ec Low Dose* PO 81 mg DAILY [facility] Administration Atorvastatin Calcium 20 mg 09/05/17 17:00 09/09/17 16:35 Lipitor* PO 20 mg 1700 [facility] Administration Benzonatate 100 mg 09/05/17 21:00 09/09/17 08:23 Tessalon Cap* PO 100 mg BID [facility] Administration Bisacodyl 10 mg 09/05/17 09:27 Dulcolax Supp* [place] DAILY PRN CONSTIPATION Docusate Sodium 100 mg 09/05/17 21:00 09/09/17 08:27 Colace Cap* PO Not Given BID [facility] Guaifenesin/Dextromethorphan 5 ml 09/05/17 09:35 09/09/17 16:35 Robitussin Dm* PO 5 ml Q4H PRN Administration COUGH Hydrocortisone 1 applic 09/09/17 21:00 Hytone Cream 1%* TOPICAL BID WYATT Levofloxacin 500 mg 09/08/17 09:00 09/09/17 08:23 Levaquin Tab* PO 500 mg DAILY [facility] Administration Midodrine 5 mg 09/06/17 09:00 09/09/17 08:23 Midodrine (Nf) PO 5 mg 0900 [facility] Administration Protocol Mometasone Furoate/Formoterol Fumar 2 puff 09/05/17 21:00 09/09/17 08:25 Dulera 200/5 Mdi* INH 2 puff BID [facility] Administration Omeprazole 40 mg 09/06/17 06:00 09/09/17 05:00 Prilosec Cap* PO 40 mg DAILY@0600 [facility] Administration Polyethylene Glycol/Electrolytes 17 gm 09/05/17 09:34 Miralax* PO DAILY PRN CONSTIPATION Quetiapine Fumarate 12.5 mg 09/07/17 02:00 09/07/17 22:25 Seroquel Tab* PO 12.5 mg ONCE PRN Administration AGITATION Senna 2 tab 09/05/17 09:27 Senokot Tab* PO BEDTIME PRN CONSTIPATION Warfarin Sodium 2 mg 09/09/17 17:00 09/09/17 16:35 Coumadin Tab(*) PO 2 mg DAILY@1700 [facility] Administration Protocol Vital Signs: Vital Signs Temp Pulse Resp BP Pulse Ox 97.8 F 80 20 122/46 100 09/09/17 16:19 09/09/17 16:19 09/09/17 16:19 09/09/17 16:19 09/09/17 16:19 Lab Results: Laboratory Results - last 24 hr 09/09/17 05:59 INR (Anticoag Therapy) 2.63 H Exam: LUNGS: Coarse BS HEART: reg rhythm ABDOMEN: Soft, +BS EXTREMITIES: Left leg suture line looks clean NEUROLOGIC: Alert. oriented to self. Able to move all 4 extremities. Assessment/Plan: 09/09/17 17:24 1. Left TKA revision: PT/OT. Tylenol for pain 2. Delirium: Much better. Avoid sedative/hypnotics. No opioids. Tylenol for pain. 3. Fever: U/A negative. CXR: Consolidation vs Atelectasis. On Levaquin for bronchitis 4. CKD: Stable 5. DVT Prophylaxis: Coumadin, lower to 2 mg. 6. Blood loss Anemia: stable 7. Cough/Bronchitis: Tessalon. Levaquin day #2 8. Advanced directives: DNR. Has MOLST
[2017-09-09] MEDS ORDERED: QUEtiapine TAB* 25 MG PO PRN (18:23)
[2017-09-09] MEDS: Hydrocortisone 1% CREAM* 30 GM TUBE TOPICAL SCH (20:20)
[2017-09-10] MEDS: GuaiFENesin DM* 5 ML UDC PO PRN ×3 (02:44→13:27)
[2017-09-10] MEDS: Omeprazole CAP* 20 MG PO SCH (05:29)
[2017-09-10 07:37] LABS: INR 2.15 (0.77-1.02)
[2017-09-10] MEDS: Docusate CAP* 100 MG PO SCH ×2 (08:54→20:05)
[2017-09-10] MEDS: CMCS - Midodrine (NF) 5 MG TAB PO SCH (08:54)
[2017-09-10] MEDS: Benzonatate CAP* 100 MG PO SCH ×2 (08:54→19:07)
[2017-09-10] MEDS: Aspirin EC Low Dose* 81 MG TAB.EC PO SCH (08:54)
[2017-09-10] MEDS: Levofloxacin TAB* 500 MG PO SCH (08:54)
[2017-09-10] MEDS: Mometasone/Formoter 200/5 MDI INH SCH ×2 (09:58→20:05)
[2017-09-10] MEDS: Hydrocortisone 1% CREAM* 30 GM TUBE TOPICAL SCH ×2 (10:01→20:05)
[2017-09-10] MEDS: Albuterol HFA INHALER* 8 gm MDI INH PRN (11:40)
[2017-09-10] MEDS: LORazepam TAB(*) 0.5 MG PO PRN (11:57)
[2017-09-10] MEDS ORDERED: LORazepam TAB(*) 0.5 MG PO ONE ×3 (15:59→22:00)
[2017-09-10] MEDS: Atorvastatin* 20 MG TAB PO SCH (17:20)
[2017-09-10] MEDS: Warfarin TAB(*) 3 MG PO SCH (17:20)
--- NOTE | 2017-09-10 17:36 | PN ---
Progress Note Date of Service: 09/10/17 Note: KARTHIKEYAN BARILLAS was visited. Therapy notes read and reviewed. Very confused again today. He did not sleep well last night. I have asked Neurology to see. His cough persists. Some question of how chronic this is, I believe he has had it since June. May order Robitussin with codeine Current Medications: Active Medications Generic Name Dose Route Start Last Admin Trade Name Freq PRN Reason Stop Dose Admin Acetaminophen 650 mg 09/05/17 09:27 09/08/17 22:29 Tylenol Tab* PO 650 mg Q6H PRN Administration FEVER > 101 Al Hydrox/Mg Hydrox/Simethicone 30 ml 09/05/17 09:27 Maalox Plus* PO Q6H PRN INDIGESTION Albuterol 1 puff 09/05/17 09:40 09/10/17 11:40 Ventolin Hfa Inhaler* INH 1 puff Q6H PRN Administration SOB/WHEEZING Aspirin 81 mg 09/06/17 09:00 09/10/17 08:54 Aspirin Ec Low Dose* PO 81 mg DAILY [facility] Administration Atorvastatin Calcium 20 mg 09/05/17 17:00 09/10/17 17:20 Lipitor* PO 20 mg 1700 [facility] Administration Benzonatate 100 mg 09/05/17 21:00 09/10/17 08:54 Tessalon Cap* PO 100 mg BID [facility] Administration Bisacodyl 10 mg 09/05/17 09:27 Dulcolax Supp* [place] DAILY PRN CONSTIPATION Docusate Sodium 100 mg 09/05/17 21:00 09/10/17 08:54 Colace Cap* PO 100 mg BID [facility] Administration Guaifenesin/Dextromethorphan 5 ml 09/05/17 09:35 09/10/17 13:27 Robitussin Dm* PO 5 ml Q4H PRN Administration COUGH Hydrocortisone 1 applic 09/09/17 21:00 09/10/17 10:01 Hytone Cream 1%* TOPICAL 1 applic BID [facility] Administration Levofloxacin 500 mg 09/08/17 09:00 09/10/17 08:54 Levaquin Tab* PO 500 mg DAILY [facility] Administration Lorazepam 0.5 mg 09/10/17 09:48 09/10/17 11:57 Ativan Tab(*) PO 0.5 mg Q6H PRN Administration AGITATION Midodrine 5 mg 09/06/17 09:00 09/10/17 08:54 Midodrine (Nf) PO 5 mg 0900 [facility] Administration Protocol Mometasone Furoate/Formoterol Fumar 2 puff 09/05/17 21:00 09/10/17 09:58 Dulera 200/5 Mdi* INH 2 puff BID [facility] Administration Omeprazole 40 mg 09/06/17 06:00 09/10/17 05:29 Prilosec Cap* PO Not Given DAILY@0600 [facility] Polyethylene Glycol/Electrolytes 17 gm 09/05/17 09:34 Miralax* PO DAILY PRN CONSTIPATION Quetiapine Fumarate 25 mg 09/10/17 16:02 Seroquel Tab* PO BEDTIME PRN AGITATION Senna 2 tab 09/05/17 09:27 Senokot Tab* PO BEDTIME PRN CONSTIPATION Warfarin Sodium 3 mg 09/10/17 17:00 09/10/17 17:20 Coumadin Tab(*) PO 3 mg DAILY@1700 [facility] Administration Protocol Vital Signs: Vital Signs Temp Pulse Resp BP Pulse Ox 99.1 F 103 20 124/77 97 09/10/17 06:20 09/10/17 06:20 09/10/17 17:19 09/10/17 06:20 09/10/17 16:10 Lab Results: Laboratory Results - last 24 hr 09/10/17 07:00 INR (Anticoag Therapy) 2.15 H Exam: LUNGS: Coarse BS HEART: reg rhythm ABDOMEN: Soft, +BS EXTREMITIES: Left leg suture line looks clean NEUROLOGIC: Alert. Disoriented. Able to move all 4 extremities. Assessment/Plan: 09/10/17 17:38 1. Left TKA revision: PT/OT. Tylenol for pain 2. Delirium: Much better. Avoid sedative/hypnotics. No opioids. Tylenol for pain. 3. Fever: U/A negative. CXR: Consolidation vs Atelectasis. On Levaquin for bronchitis 4. CKD: Stable 5. DVT Prophylaxis: Coumadin, increase to 3 mg. 6. Blood loss Anemia: stable 7. Cough/Bronchitis: Tessalon. Levaquin day #3. Will d/c robitussin and try Robitussin w/codeine 8. Advanced directives: DNR. Has MOLST
[2017-09-10] MEDS: QUEtiapine TAB* 25 MG PO PRN (19:07)
[2017-09-10] MEDS: guaiFENesin/CODIEN 100MG-10MG* 5 ML UDC PO PRN (19:07)
[2017-09-10 19:55] LABS: ABS Basophils 0.1 10^3/ul (0-0.2); ABS Eosinophils 0.1 10^3/ul (0-0.6); ABS Lymphocytes 1.2 10^3/ul (1.0-4.8); ABS Monocytes 1.4 10^3/ul (0-0.8); ABS Neutrophils 6.4 10^3/ul (1.5-7.7); ABS Nucleated RBC 0 10^3/ul; Eosinophil % 1.2 % (0-6); Hematocrit 25 % (42-52); Hemoglobin 8.6 g/dl (14.0-18.0); Mean Corpuscular HGB Conc 34 g/dl (31-36); Mean Corpuscular Hemoglobin 32 pg (27-31); Mean Corpuscular Volume 92 fL (80-94); Mean Platelet Volume 9 um3 (7.4-10.4); Nucleated Red Blood Cells % 0.1; Platelet Count 270 10^3/ul (150-450); Red Blood Count 2.73 10^6/ul (4.0-5.4); Red Cell Distribution Width 14 % (10.5-15); White Blood Count 9.1 10^3/ul (3.5-10.8)
[2017-09-10 20:22] LABS: EGFR Non-African American 69.1 (>60)
--- NOTE | 2017-09-10 20:56 | CONS ---
NEUROLOGY CONSULTATION: DATE OF CONSULT: 09/10/17 LOCATION: The patient is on the PMRU. REQUESTING PHYSICIAN: Dr. Enriquez. REASON FOR CONSULT: Agitated delirium in the postoperative setting. HISTORY OF PRESENT ILLNESS: Mr. Olivas is an 82-year-old man with a history of COPD as well as right carotid dissection, status post stenting in 2012, and re- stenting and angioplasty in 2015, who was admitted to the [facility] on 09/05/17 after undergoing left total knee replacement on 09/02/17. He apparently experienced an immediate postop delirium while on the surgical short stay unit and then was admitted to rehab on 09/05/17. Per Dr. Enriquez, he did not sleep at all on the first or second night on the RU and they stopped all of his opioids thinking that this was contributing to his delirium. He had a very good day on 09/08/17 and then yesterday began to show some delirium again and now today has been hallucinating, picking at things in the air, and quite agitated. He has been started on Seroquel 25 mg at bedtime as needed for his agitation and has also been receiving lorazepam as needed. He received 0.5 mg at noon and then Dr. Enriquez indicates that he had received an additional 0.5 mg at around 4 p.m. Several days ago, he had urinalysis checked as well as a chest x-ray, which was interpreted to show atelectasis versus consolidation. There is no reported history of dementia. He has a bad cough, which according to Dr. Dewitt's admission note dates back to at least a week preoperative. He has had some fluctuating temperature with a low-grade fever and a T-max of 101.2 noted on 09/07/17. There has been no noted hypoxia. He was started on Levaquin on 09/08/17 for presumed bronchitis. Neurology consultation was requested to help with the etiology of his delirium. Of note, he is now on Coumadin postoperatively as well as aspirin and was previously on aspirin and Plavix for his carotid stents. PAST MEDICAL HISTORY: 1. COPD and asthma. 2. GERD. 3. Osteoarthritis, status post total left knee replacement in 1998. 4. Chronic hypotension, on midodrine. 5. History of prostate cancer, status post TURP. 6. Right carotid dissection, status post stenting in 2013 and re-stenting and angioplasty in 2016 with no new neurological deficits. 7. Bilateral carotid stenosis. 8. History of shoulder surgery. 9. Status post appendectomy. 10. Status post tonsillectomy. MEDICATIONS: Current medications include: 1. Tylenol 650 q.6 p.r.n. 2. Maalox p.r.n. 3. Albuterol p.r.n. 4. Aspirin 81 mg daily. 5. Lipitor 20 mg daily. 6. Tessalon Perles twice daily. 7. Dulcolax as needed. 8. Colace twice daily. 9. Robitussin as needed. 10. Hydrocortisone cream twice daily. 11. Levofloxacin 500 mg daily. 12. Lorazepam 0.5 mg q.6 p.r.n. agitation. 13. Midodrine 5 mg daily. 14. Dulera 2 puffs twice daily. 15. Prilosec 40 mg daily. 16. MiraLAX 17 g p.r.n. constipation. 17. Seroquel 25 mg at bedtime p.r.n. agitation. 18. Senna 2 tablets at bedtime p.r.n. 19. Warfarin 3 mg daily. ALLERGIES: No known drug allergies. FAMILY HISTORY: Father had COPD. SOCIAL HISTORY: He lives with his . 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 His esteban name is Mitchell. He quit smoking several years ago. No alcohol use. REVIEW OF SYSTEMS: Not obtainable from the patient secondary to his current delirium. PHYSICAL EXAM: Vital Signs: Temperature at 6:20 this morning was 99.1, blood pressure 124/77, heart rate 103, oxygen saturation 98% on room air. On my initial evaluation, the patient was being helped back into bed from the chair by his nurse and 2 security guards. He has been requiring 2 to 3 assists for transfers. He was not able to boost himself up in bed and required boosting by nurses. He had recently been incontinent of stool. He was agitated, mostly keeping his eyes closed and was mostly mumbling incoherently. He would grab at anything that touched his skin making auscultating his heart and lungs very difficult. His general exam is otherwise notable for an erythematous and warm to touch left knee with sutures in place. I did not detect any obvious drainage. I questioned whether he had a macular erythematous rash over his chest. He occasionally would open his eyes spontaneously and 1 or 2 times followed commands to open his eyes, but otherwise was not consistently following commands. He actively resisted the examiner opening to his eyes making examination of his pupils and eyes very difficult. There was no obvious facial asymmetry. His hearing was intact to voice as he responded to his esteban name. He had some intelligible speech, but mostly mumbled incoherently. He had equal strength in his upper extremities, which he was able to lift well off the bed. He did not lift either leg off the bed on command, but was able to withdraw to noxious stimulation bilaterally. His reflexes were 2+ in the upper extremities. No clonus at the ankles. Toes were difficult to interpret. Towards the end of my evaluation, he began trying to remove his shirt and nearly ripping off the buttons in order to do so. He coughed frequently during the exam, which sounded to be a coarse nonproductive cough. DIAGNOSTIC STUDIES/LAB DATA: His CBC on 09/08/17 was notable for hematocrit of 24, hemoglobin of 8.5, normal white count of 7.1, and normal platelet count. His chemistry panel was notable for slightly low sodium of 131, elevated BUN of 25, and normal creatinine of 1.09. His calcium was 8.4 and total protein was 5.8 and albumin was 3. His CRP 09/03/17 was 17.83. TSH on 08/23/17 was normal at 1.65. His INR today is 2.15. Urinalysis on 09/07/17 showed no evidence for infection. A chest x-ray on 09/08/17 as mentioned showed atelectasis versus consolidation. IMPRESSION AND PLAN: Gregor Olivas is an 82-year-old man, who I am being asked to see for an agitated delirium. This occurs in the postoperative setting after a total knee replacement a little over a week ago. He has had some period of improvement over the last couple of days, but certainly over the last 24 hours has worsened again. He has a notable cough, which may be chronic. I think we should recheck some studies which have already been checked, and do some additional studies including rechecking CMP and CBC as well as the chest x- ray and urinalysis. I will recheck the CRP. We will get a sedimentation rate and also check an ammonia. Given his cough and his delirium, I would also like to check a flu swab. We will check a CT of his brain as well. I would suggest trying to limit benzodiazepines in this age group, as it can paradoxically worsen agitation and would otherwise suggest using Seroquel as needed 12.[address] Sharp and Dr. Ojeda will be taking over the weekend and will receive sign- out on the patient. [id number]/CPS #: [id number] MTDD
[2017-09-10] MEDS: Acetaminophen TAB* 325 MG PO PRN (22:36)
[2017-09-11] MEDS: Omeprazole CAP* 20 MG PO SCH (06:28)
[2017-09-11 07:46] LABS: Urine Appearance Clear; Urine Blood Negative (Negative); Urine Color Yellow; Urine Ketones Trace (Negative); Urine Protein Negative (Negative); Urine Specific Gravity 1.018 (1.010-1.030); Urine Urobilinogen Negative (Negative)
[2017-09-11] MEDS: Levofloxacin TAB* 500 MG PO SCH (08:49)
[2017-09-11] MEDS: Benzonatate CAP* 100 MG PO SCH ×2 (08:49→20:55)
[2017-09-11] MEDS: Acetaminophen TAB* 325 MG PO PRN (08:49)
[2017-09-11] MEDS: CMCS - Midodrine (NF) 5 MG TAB PO SCH (08:49)
[2017-09-11] MEDS: Aspirin EC Low Dose* 81 MG TAB.EC PO SCH (08:49)
[2017-09-11] MEDS: Hydrocortisone 1% CREAM* 30 GM TUBE TOPICAL SCH ×2 (08:50→21:00)
[2017-09-11] MEDS: Docusate CAP* 100 MG PO SCH ×2 (08:50→20:55)
[2017-09-11] MEDS: Mometasone/Formoter 200/5 MDI INH SCH ×2 (10:22→20:58)
[2017-09-11] MEDS: LORazepam TAB(*) 0.5 MG PO PRN ×2 (13:04→19:18)
--- NOTE | 2017-09-11 16:15 | PN ---
Progress Note Date of Service: 09/11/17 Note: KARTHIKEYAN BARILLAS was visited. Nursing notes read and reviewed. He is doing better today, more oriented. Slept a little better last night. Was unable to do CT of brain last night due to agitation. Appreciate Neuro consult. Note elevated ESR and CRP not sure if this is post op. Family tells me cough started in June. He had work up including CXR and possibly a CT of chest. Will try to find if a CT had been done previously. May ask pulmonary to see Wednesday Current Medications: Active Medications Generic Name Dose Route Start Last Admin Trade Name Freq PRN Reason Stop Dose Admin Acetaminophen 650 mg 09/05/17 09:27 09/11/17 08:49 Tylenol Tab* PO 650 mg Q6H PRN Administration FEVER > 101 Al Hydrox/Mg Hydrox/Simethicone 30 ml 09/05/17 09:27 Maalox Plus* PO Q6H PRN INDIGESTION Albuterol 1 puff 09/05/17 09:40 09/10/17 11:40 Ventolin Hfa Inhaler* INH 1 puff Q6H PRN Administration SOB/WHEEZING Aspirin 81 mg 09/06/17 09:00 09/11/17 08:49 Aspirin Ec Low Dose* PO 81 mg DAILY [facility] Administration Atorvastatin Calcium 20 mg 09/05/17 17:00 09/10/17 17:20 Lipitor* PO 20 mg 1700 [facility] Administration Benzonatate 100 mg 09/05/17 21:00 09/11/17 08:49 Tessalon Cap* PO 100 mg BID [facility] Administration Bisacodyl 10 mg 09/05/17 09:27 Dulcolax Supp* [place] DAILY PRN CONSTIPATION Docusate Sodium 100 mg 09/05/17 21:00 09/11/17 08:50 Colace Cap* PO Not Given BID [facility] Guaifenesin/Codeine Phosphate 5 ml 09/10/17 17:39 09/10/17 19:07 Robitussin Ac 100mg-10mg* PO 5 ml Q6H PRN Administration COUGH Hydrocortisone 1 applic 09/09/17 21:00 09/11/17 08:50 Hytone Cream 1%* TOPICAL Not Given BID [facility] Levofloxacin 500 mg 09/08/17 09:00 09/11/17 08:49 Levaquin Tab* PO 500 mg DAILY [facility] Administration Lorazepam 0.5 mg 09/10/17 09:48 09/11/17 13:04 Ativan Tab(*) PO 0.5 mg Q6H PRN Administration AGITATION Midodrine 5 mg 09/06/17 09:00 09/11/17 08:49 Midodrine (Nf) PO 5 mg 0900 [facility] Administration Protocol Mometasone Furoate/Formoterol Fumar 2 puff 09/05/17 21:00 09/11/17 10:22 Dulera 200/5 Mdi* INH 2 puff BID [facility] Administration Omeprazole 40 mg 09/06/17 06:00 09/11/17 06:28 Prilosec Cap* PO Not Given DAILY@0600 [facility] Polyethylene Glycol/Electrolytes 17 gm 09/05/17 09:34 Miralax* PO DAILY PRN CONSTIPATION Quetiapine Fumarate 25 mg 09/10/17 16:02 09/10/17 19:07 Seroquel Tab* PO 25 mg BEDTIME PRN Administration AGITATION Senna 2 tab 09/05/17 09:27 Senokot Tab* PO BEDTIME PRN CONSTIPATION Warfarin Sodium 3 mg 09/10/17 17:00 09/10/17 17:20 Coumadin Tab(*) PO 3 mg DAILY@1700 [facility] Administration Protocol Vital Signs: Vital Signs Temp Pulse Resp BP Pulse Ox 98.2 F 87 18 145/59 99 09/11/17 06:23 09/11/17 06:23 09/11/17 14:10 09/11/17 06:23 09/11/17 08:00 Lab Results: Laboratory Results - last 24 hr 09/10/17 09/10/17 09/10/17 19:06 19:34 19:34 WBC 9.1 RBC 2.73 L Hgb 8.6 L Hct 25 L MCV 92 MCH 32 H MCHC 34 RDW 14 Plt Count 270 MPV 9 Neut % (Auto) 70.2 Lymph % (Auto) 13.0 L [place] % (Auto) 15.0 H Eos % (Auto) 1.2 Baso % (Auto) 0.6 Absolute Neuts (auto) 6.4 Absolute Lymphs (auto) 1.2 Absolute Monos (auto) 1.4 H Absolute Eos (auto) 0.1 Absolute Basos (auto) 0.1 Absolute Nucleated RBC 0 Nucleated RBC % 0.1 ESR 100 H Sodium Potassium Chloride Carbon Dioxide Anion Gap BUN Creatinine Est GFR ( Amer) Est GFR (Non-Af Amer) BUN/Creatinine Ratio Glucose Calcium Total Bilirubin AST ALT Alkaline Phosphatase Ammonia 30 C-Reactive Protein Total Protein Albumin Globulin Albumin/Globulin Ratio Urine Color Urine Appearance Urine pH Ur Specific Kerrick Urine Protein Urine Ketones Urine Blood Urine Nitrate Urine Bilirubin Urine Urobilinogen Ur Leukocyte Esterase Urine Glucose Influenza A (Rapid) Negative Influenza B (Rapid) Negative 09/10/17 09/11/17 19:34 07:31 WBC RBC Hgb Hct MCV MCH MCHC RDW Plt Count MPV Neut % (Auto) Lymph % (Auto) [place] % (Auto) Eos % (Auto) Baso % (Auto) Absolute Neuts (auto) Absolute Lymphs (auto) Absolute Monos (auto) Absolute Eos (auto) Absolute Basos (auto) Absolute Nucleated RBC Nucleated RBC % ESR Sodium 124 L Potassium 4.1 Chloride 96 L Carbon Dioxide 19 L Anion Gap 9 BUN 22 Creatinine 1.03 Est GFR ( Amer) 88.9 Est GFR (Non-Af Amer) 69.1 BUN/Creatinine Ratio 21.4 H Glucose 115 H Calcium 8.4 L Total Bilirubin 0.70 AST 45 H ALT 43 Alkaline Phosphatase 47 Ammonia C-Reactive Protein 76.04 H Total Protein 5.6 L Albumin 3.0 L Globulin 2.6 Albumin/Globulin Ratio 1.2 Urine Color Yellow Urine Appearance Clear Urine pH 5.0 Ur Specific Kerrick 1.018 Urine Protein Negative Urine Ketones Trace H Urine Blood Negative Urine Nitrate Negative Urine Bilirubin Negative Urine Urobilinogen Negative Ur Leukocyte Esterase Negative Urine Glucose Negative Influenza A (Rapid) Influenza B (Rapid) Exam: LUNGS: Coarse BS HEART: reg rhythm ABDOMEN: Soft, +BS EXTREMITIES: Left leg suture line looks clean NEUROLOGIC: Alert. Oriented to self and place. Able to move all 4 extremities. Assessment/Plan: 09/11/17 16:17 1. Left TKA revision: PT/OT. Tylenol for pain 2. Delirium: better. Avoid sedative/hypnotics. No opioids. Tylenol for pain. CT of brain. 3. Elevated ESR, Sed rate: U/A negative. CXR: Consolidation vs Atelectasis. On Levaquin for bronchitis 4. CKD: Stable 5. DVT Prophylaxis: Coumadin, increase to 3 mg. 6. Blood loss Anemia: stable 7. Cough/Bronchitis: Tessalon. Levaquin day #4. Robitussin w/codeine. May need CT of chest, pulmonary consult 8. Advanced directives: DNR. Has MOLST
[2017-09-11] MEDS: Atorvastatin* 20 MG TAB PO SCH (17:19)
[2017-09-11] MEDS: Warfarin TAB(*) 3 MG PO SCH (17:19)
--- NOTE | 2017-09-11 19:02 | RAD ---
INDICATION: Postoperative disorientation and confusion COMPARISON: None. TECHNIQUE: Contiguous axial sections of the brain were obtained from the skull base to the vertex without contrast. FINDINGS: Evaluation is somewhat limited by motion artifact. The ventricles, cisterns and sulci mild symmetrical involutional changes appropriate for the patient's age. There is a very mild degree of periventricular and subcortical white matter hypoattenuation most consistent with chronic microvascular disease. The marcano-white matter differentiation is adequately maintained and there is no sulcal effacement. No significant focal abnormality or mass effect is present. There is no evidence for intracranial hemorrhage. No significant focal osseous abnormality is present. There is a mild degree of paranasal sinus mucosal thickening involving the left maxillary sinus. The remaining visualized sinuses are clear. The mastoid air cells are well aerated bilaterally. IMPRESSION: No CT evidence of an acute intracranial abnormality.
[2017-09-11] MEDS: QUEtiapine TAB* 25 MG PO PRN (20:55)
[2017-09-11] MEDS: guaiFENesin/CODIEN 100MG-10MG* 5 ML UDC PO PRN (20:56)
[2017-09-12] MEDS: LORazepam TAB(*) 0.5 MG PO PRN ×4 (01:31→21:00)
[2017-09-12] MEDS: Omeprazole CAP* 20 MG PO SCH (05:41)
[2017-09-12] MEDS: Benzonatate CAP* 100 MG PO SCH ×2 (09:03→21:01)
[2017-09-12] MEDS: Docusate CAP* 100 MG PO SCH ×2 (09:04→21:05)
[2017-09-12] MEDS: CMCS - Midodrine (NF) 5 MG TAB PO SCH (09:04)
[2017-09-12] MEDS: Levofloxacin TAB* 500 MG PO SCH (09:04)
[2017-09-12] MEDS: Aspirin EC Low Dose* 81 MG TAB.EC PO SCH (09:04)
[2017-09-12] MEDS: Mometasone/Formoter 200/5 MDI INH SCH ×2 (13:54→21:03)
[2017-09-12] MEDS: Hydrocortisone 1% CREAM* 30 GM TUBE TOPICAL SCH ×2 (13:55→22:10)
[2017-09-12] MEDS: Acetaminophen TAB* 325 MG PO PRN (14:10)
--- NOTE | 2017-09-12 14:35 | PN ---
Progress Note Date of Service: 09/12/17 Note: KARTHIKEYAN BARILLAS was visited. Nursing notes read and reviewed. He did not sleep well last night. CT scan of brain limited by motion but did not reveal any intracranial abnormalities. Current Medications: Active Medications Generic Name Dose Route Start Last Admin Trade Name Freq PRN Reason Stop Dose Admin Acetaminophen 650 mg 09/05/17 09:27 09/12/17 14:10 Tylenol Tab* PO 650 mg Q6H PRN Administration FEVER > 101 Al Hydrox/Mg Hydrox/Simethicone 30 ml 09/05/17 09:27 Maalox Plus* PO Q6H PRN INDIGESTION Albuterol 1 puff 09/05/17 09:40 09/10/17 11:40 Ventolin Hfa Inhaler* INH 1 puff Q6H PRN Administration SOB/WHEEZING Aspirin 81 mg 09/06/17 09:00 09/12/17 09:04 Aspirin Ec Low Dose* PO 81 mg DAILY [facility] Administration Atorvastatin Calcium 20 mg 09/05/17 17:00 09/11/17 17:19 Lipitor* PO 20 mg 1700 [facility] Administration Benzonatate 100 mg 09/05/17 21:00 09/12/17 09:03 Tessalon Cap* PO 100 mg BID [facility] Administration Bisacodyl 10 mg 09/05/17 09:27 Dulcolax Supp* [place] DAILY PRN CONSTIPATION Docusate Sodium 100 mg 09/05/17 21:00 09/12/17 09:04 Colace Cap* PO 100 mg BID [facility] Administration Guaifenesin/Codeine Phosphate 5 ml 09/10/17 17:39 09/11/17 20:56 Robitussin Ac 100mg-10mg* PO 5 ml Q6H PRN Administration COUGH Hydrocortisone 1 applic 09/09/17 21:00 09/12/17 13:55 Hytone Cream 1%* TOPICAL Not Given BID [facility] Levofloxacin 500 mg 09/08/17 09:00 09/12/17 09:04 Levaquin Tab* PO 500 mg DAILY [facility] Administration Lorazepam 0.5 mg 09/10/17 09:48 09/12/17 09:04 Ativan Tab(*) PO 0.5 mg Q6H PRN Administration AGITATION Midodrine 5 mg 09/06/17 09:00 09/12/17 09:04 Midodrine (Nf) PO 5 mg 0900 [facility] Administration Protocol Mometasone Furoate/Formoterol Fumar 2 puff 09/05/17 21:00 09/12/17 13:54 Dulera 200/5 Mdi* INH 2 puff BID [facility] Administration Omeprazole 40 mg 09/06/17 06:00 09/12/17 05:41 Prilosec Cap* PO 40 mg DAILY@0600 [facility] Administration Polyethylene Glycol/Electrolytes 17 gm 09/05/17 09:34 Miralax* PO DAILY PRN CONSTIPATION Quetiapine Fumarate 25 mg 09/10/17 16:02 09/11/17 20:55 Seroquel Tab* PO 25 mg BEDTIME PRN Administration AGITATION Senna 2 tab 09/05/17 09:27 Senokot Tab* PO BEDTIME PRN CONSTIPATION Warfarin Sodium 3 mg 09/10/17 17:00 09/11/17 17:19 Coumadin Tab(*) PO 3 mg DAILY@1700 [facility] Administration Protocol Vital Signs: Vital Signs Temp Pulse Resp BP Pulse Ox 98.7 F 87 18 133/60 97 09/12/17 05:40 09/12/17 05:40 09/12/17 14:05 09/12/17 05:40 09/12/17 08:00 Exam: LUNGS: Coarse BS HEART: reg rhythm ABDOMEN: Soft, +BS EXTREMITIES: Left leg suture line looks clean NEUROLOGIC: Alert. Oriented to self. Able to move all 4 extremities. Assessment/Plan: 09/12/17 14:35 1. Left TKA revision: PT/OT. Tylenol for pain 2. Delirium: slightly worse today. Avoid sedative/hypnotics. No opioids. Tylenol for pain. 3. Elevated ESR, Sed rate: U/A negative. CXR: Consolidation vs Atelectasis. On Levaquin for bronchitis 4. CKD: Stable 5. DVT Prophylaxis: Coumadin, increase to 3 mg. 6. Blood loss Anemia: stable 7. Cough/Bronchitis: Tessalon. Levaquin day #5. Robitussin w/codeine. May need CT of chest, pulmonary consult 8. Advanced directives: DNR. Has MOLST
[2017-09-12] MEDS: guaiFENesin/CODIEN 100MG-10MG* 5 ML UDC PO PRN ×2 (14:54→21:01)
[2017-09-12] MEDS: Atorvastatin* 20 MG TAB PO SCH (17:03)
[2017-09-12] MEDS: Warfarin TAB(*) 3 MG PO SCH (17:03)
[2017-09-12] MEDS: Albuterol HFA INHALER* 8 gm MDI INH PRN (18:04)
[2017-09-12] MEDS: QUEtiapine TAB* 25 MG PO PRN (21:58)
[2017-09-13] MEDS: guaiFENesin/CODIEN 100MG-10MG* 5 ML UDC PO PRN ×3 (02:55→20:07)
[2017-09-13] MEDS: LORazepam TAB(*) 0.5 MG PO PRN ×3 (02:55→20:07)
[2017-09-13] MEDS: Omeprazole CAP* 20 MG PO SCH ×2 (08:41→09:30)
[2017-09-13] MEDS: Hydrocortisone 1% CREAM* 30 GM TUBE TOPICAL SCH ×2 (09:30→20:12)
[2017-09-13] MEDS: Aspirin EC Low Dose* 81 MG TAB.EC PO SCH (09:31)
[2017-09-13] MEDS: Levofloxacin TAB* 500 MG PO SCH (09:31)
[2017-09-13] MEDS: Benzonatate CAP* 100 MG PO SCH (09:32)
[2017-09-13] MEDS: CMCS - Midodrine (NF) 5 MG TAB PO SCH (09:32)
[2017-09-13] MEDS: Mometasone/Formoter 200/5 MDI INH SCH ×2 (09:37→20:11)
[2017-09-13] MEDS: Docusate CAP* 100 MG PO SCH ×2 (09:40→19:32)
[2017-09-13 10:49] LABS: ABS Basophils 0.1 10^3/ul (0-0.2); ABS Eosinophils 0.2 10^3/ul (0-0.6); ABS Lymphocytes 1.1 10^3/ul (1.0-4.8); ABS Nucleated RBC 0 10^3/ul; Eosinophil % 2.6 % (0-6); Hematocrit 26 % (42-52); Hemoglobin 8.8 g/dl (14.0-18.0); Lymphocyte % 14.8 % (25-47); Mean Corpuscular HGB Conc 34 g/dl (31-36); Mean Corpuscular Hemoglobin 31 pg (27-31); Mean Corpuscular Volume 93 fL (80-94); Mean Platelet Volume 8 um3 (7.4-10.4); Nucleated Red Blood Cells % 0; Platelet Count 326 10^3/ul (150-450); Red Blood Count 2.82 10^6/ul (4.0-5.4); Red Cell Distribution Width 14 % (10.5-15); White Blood Count 7.4 10^3/ul (3.5-10.8)
[2017-09-13 11:01] LABS: INR 1.76 (0.77-1.02)
[2017-09-13 11:02] LABS: EGFR Non-African American 69.1 (>60)
--- NOTE | 2017-09-13 17:05 | PN ---
Progress Note Date of Service: 09/13/17 Note: KARTHIKEYAN BARILLAS was visited. Therapy notes read and reviewed. Still with waxing and waning mental status and inability to sleep. Have asked Psychiatry to see. His cough persists and I have asked Pulmonary to see. They have attempted to get a CT scan of his chest. Current Medications: Active Medications Generic Name Dose Route Start Last Admin Trade Name Freq PRN Reason Stop Dose Admin Acetaminophen 650 mg 09/05/17 09:27 09/12/17 14:10 Tylenol Tab* PO 650 mg Q6H PRN Administration FEVER > 101 Al Hydrox/Mg Hydrox/Simethicone 30 ml 09/05/17 09:27 Maalox Plus* PO Q6H PRN INDIGESTION Albuterol 1 puff 09/05/17 09:40 09/12/17 18:04 Ventolin Hfa Inhaler* INH 1 puff Q6H PRN Administration SOB/WHEEZING Aspirin 81 mg 09/06/17 09:00 09/13/17 09:31 Aspirin Ec Low Dose* PO 81 mg DAILY [facility] Administration Atorvastatin Calcium 20 mg 09/05/17 17:00 09/12/17 17:03 Lipitor* PO 20 mg 1700 [facility] Administration Benzonatate 100 mg 09/05/17 21:00 09/13/17 09:32 Tessalon Cap* PO 100 mg BID [facility] Administration Bisacodyl 10 mg 09/05/17 09:27 Dulcolax Supp* [place] DAILY PRN CONSTIPATION Docusate Sodium 100 mg 09/05/17 21:00 09/13/17 09:40 Colace Cap* PO Not Given BID [facility] Guaifenesin/Codeine Phosphate 5 ml 09/10/17 17:39 09/13/17 09:32 Robitussin Ac 100mg-10mg* PO 5 ml Q6H PRN Administration COUGH Hydrocortisone 1 applic 09/09/17 21:00 09/13/17 09:30 Hytone Cream 1%* TOPICAL 1 applic BID [facility] Administration Lorazepam 0.5 mg 09/10/17 09:48 09/13/17 09:32 Ativan Tab(*) PO 0.5 mg Q6H PRN Administration AGITATION Midodrine 5 mg 09/06/17 09:00 09/13/17 09:32 Midodrine (Nf) PO 5 mg 0900 [facility] Administration Protocol Mometasone Furoate/Formoterol Fumar 2 puff 09/05/17 21:00 09/13/17 09:37 Dulera 200/5 Mdi* INH 2 puff BID [facility] Administration Omeprazole 40 mg 09/06/17 06:00 09/13/17 09:30 Prilosec Cap* PO 40 mg DAILY@0600 [facility] Administration Polyethylene Glycol/Electrolytes 17 gm 09/05/17 09:34 Miralax* PO DAILY PRN CONSTIPATION Quetiapine Fumarate 25 mg 09/10/17 16:02 09/12/17 21:58 Seroquel Tab* PO 25 mg BEDTIME PRN Administration AGITATION Senna 2 tab 09/05/17 09:27 Senokot Tab* PO BEDTIME PRN CONSTIPATION Warfarin Sodium 4 mg 09/13/17 17:00 Coumadin Tab(*) PO DAILY@1700 [facility] Protocol Vital Signs: Vital Signs Temp Pulse Resp BP Pulse Ox 99.2 F 76 22 116/52 96 09/13/17 06:49 09/13/17 15:59 09/13/17 15:59 09/13/17 15:59 09/13/17 15:59 Lab Results: Laboratory Results - last 24 hr 09/13/17 09/13/17 09/13/17 10:23 10:23 10:23 WBC 7.4 RBC 2.82 L Hgb 8.8 L Hct 26 L MCV 93 MCH 31 MCHC 34 RDW 14 Plt Count 326 MPV 8 Neut % (Auto) 68.0 Lymph % (Auto) 14.8 L [place] % (Auto) 13.8 H Eos % (Auto) 2.6 Baso % (Auto) 0.8 Absolute Neuts (auto) 5.0 Absolute Lymphs (auto) 1.1 Absolute Monos (auto) 1.0 H Absolute Eos (auto) 0.2 Absolute Basos (auto) 0.1 Absolute Nucleated RBC 0 Nucleated RBC % 0 INR (Anticoag Therapy) 1.76 H Sodium 128 L Potassium 3.8 Chloride 100 L Carbon Dioxide 22 Anion Gap 6 BUN 20 Creatinine 1.03 Est GFR ( Amer) 88.9 Est GFR (Non-Af Amer) 69.1 BUN/Creatinine Ratio 19.4 Glucose 101 H Calcium 8.6 Total Bilirubin 0.60 AST 43 H ALT 46 Alkaline Phosphatase 56 Total Protein 5.7 L Albumin 3.1 L Globulin 2.6 Albumin/Globulin Ratio 1.2 Exam: LUNGS: Coarse BS HEART: reg rhythm ABDOMEN: Soft, +BS EXTREMITIES: Left leg suture line looks clean NEUROLOGIC: Alert. Oriented to self. Able to move all 4 extremities. Assessment/Plan: 09/13/17 17:06 1. Left TKA revision: PT/OT. Tylenol for pain 2. Delirium: slightly worse today. Avoid sedative/hypnotics. No opioids. Tylenol for pain. Psychiatry consult. CT of head no CVA 3. CKD: Stable 4. DVT Prophylaxis: Coumadin, increase to 4 mg. 5. Blood loss Anemia: stable 6. Cough/Bronchitis: Tessalon. Robitussin w/codeine. Had CT of chest, pulmonary consult 7. Advanced directives: DNR. Has CLIFF
--- NOTE | 2017-09-13 17:11 | RAD ---
HISTORY: Cough COMPARISONS: None TECHNIQUE: Multiple contiguous axial CT scans of the chest were obtained without intravenous contrast. Coronal and sagittal multiplanar reformations are also submitted for review. FINDINGS: The study is limited by patient breathing motion artifact. NECK AND THYROID: The lower neck and thyroid are unremarkable. CHEST WALL: There is no lower cervical, axillary, or supraclavicular lymphadenopathy by size criteria. HEART AND PERICARDIUM: Coronary and valvular cardiac calcifications are noted. AORTA AND PULMONARY VASCULATURE: The aorta and pulmonary vasculature are normal. MEDIASTINUM: There is no mediastinal lymphadenopathy by size criteria. BLAINE: There is no hilar lymphadenopathy by size criteria. AIRWAY AND ESOPHAGUS: The airway is unremarkable, without endobronchial filling defect. The esophagus is grossly normal. LUNG PARENCHYMA: Evaluation is limited by patient breathing motion artifact. There is minimal dependent atelectasis of the lung bases bilaterally. There are are symmetrical nodules noted within the right middle lobe measuring up to 0.5 cm in size. PLEURA: No pleural abnormalities are noted. UPPER ABDOMEN: There is a large right parapelvic cyst versus right-sided hydronephrosis, incompletely evaluated on the current examination. BONES AND SOFT TISSUES: Mild degenerative changes are noted. OTHER: None. IMPRESSION: 1. LIMITED STUDY. 2. RIGHT MIDDLE LOBE LUNG NODULES MEASURING UP TO 0.5 CM IN SIZE. GIVEN HISTORY OF MALIGNANCY, METASTATIC DISEASE IS WITHIN THE DIFFERENTIAL. RECOMMEND ATTENTION ON SHORT-TERM FOLLOW-UP IMAGING. 3. LARGE PARAPELVIC CYST VERSUS RIGHT-SIDED HYDRONEPHROSIS. RECOMMEND CORRELATION WITH DEDICATED IMAGING OF THE KIDNEYS..
[2017-09-13] MEDS: Atorvastatin* 20 MG TAB PO SCH (17:15)
[2017-09-13] MEDS: Warfarin TAB(*) 4 MG PO SCH (17:15)
[2017-09-13] MEDS: Acetaminophen TAB* 325 MG PO PRN (17:39)
[2017-09-13] MEDS: QUEtiapine TAB* 25 MG PO PRN (20:07)
--- NOTE | 2017-09-13 22:37 | CONS ---
PULMONARY CONSULTATION REPORT: DATE OF CONSULT: 09/13/17 CONSULTATION REQUESTED BY: Dr. Enriquez. REASON FOR CONSULT: Evaluation of cough. HISTORY OF PRESENT ILLNESS: The patient is an 82-year-old male, former smoker with history of COPD/asthma who was admitted for left total knee revision done by Dr. Goodwin on 09/02/17. The patient was then transitioned to rehab. The patient was diagnosed with postop delirium, was felt to be secondary to anesthesia and sundowning at his age. He has been in rehab floor since that time. He has been having continued delirium. He was not able to provide any history. History obtained from review of medical records, his bedside notes and Dr. Enriquez. The patient has been having a cough since April. He was seen in urgent care in [place] for the cough in the past. The patient has a history of asthma and COPD as per records. He has been on Dulera and ProAir. The patient was not coughing at the time of my exam. Cough is mostly dry as per caregiver. 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 No documented history of weight loss or loss of appetite. No hemoptysis, cough is not productive of thick phlegm, might have occasional brown phlegm. I have personally reviewed chest x-ray performed on 09/08/17 in comparison with prior chest x-ray. The patient noted to have airspace opacities at the bases bilaterally with some prominence of interstitium. No prior CT scans were available for review. The patient with no elevated white count or left shift. He does have hyponatremia with sodium of 128 today. He has mildly elevated AST , albumin and total protein slightly decreased. C-reactive protein was elevated at 76. PAST MEDICAL HISTORY: 1. COPD/asthma. 2. GERD. 3. Osteoarthritis, status post left total knee replacement in 1998 and periprosthetic osteolysis, status post revision on 09/02/17. 4. Chronic hypotension, on midodrine. 5. Prostate cancer, status post TURP. 6. 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 7. Bilateral carotid stenosis. 8. History of shoulder surgery. 9. Appendectomy. 10. Tonsillectomy. MEDICATIONS: 1. Plavix 75 mg which is being held as the patient is on Coumadin post knee replacement. 2. Lipitor. 3. Omeprazole. 4. Midodrine. 6. Dulera. 7. ProAir. 8. Tylenol. 9. Tessalon. 10. Colace. 11. Percocet. 12. Warfarin. ALLERGIES: No known drug allergies. FAMILY HISTORY: COPD in father. 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 He used to smoke, quit few years ago. REVIEW OF SYSTEMS: Unable to obtain review of systems as the patient could not provide any history. Information through RN was reported in HPI. PHYSICAL EXAM: The patient sitting in chair in no apparent distress, oriented to himself. Vital Signs: Temperature 99.2, pulse 94 beats per minute, respiratory rate 22, O2 sat 100% on room air, blood pressure 114/65. HEENT: Pupils equal and reactive to light. Mucous membranes dry. Lungs: Clear to auscultation. No wheezing or crackles. Cardio-vascular: S1, S2 present. Regular. Abdomen: Soft, nontender, nondistended. Bowel sounds present. Extremities: Edema in bilateral lower extremities, left greater than right. Negative Ricki's. Musculoskeletal: Normal range of motion, knee is in cast. Neurological: Just oriented to himself, no focal deficits were noted. DIAGNOSTIC STUDIES/LAB DATA: Sodium 128, potassium 3.8, chloride 100, bicarb 22 , BUN 20, creatinine 1.03. CRP elevated at 76. Influenza A and B negative. Chest x-ray as described above in HPI. The patient had brain CT given concern with delirium and confusion with no evidence of acute intracranial abnormality. IMPRESSION AND RECOMMENDATIONS: 82-year-old male with history of asthma/ chronic obstructive pulmonary disease, recent knee revision with cough which has preceded current surgery. Cough- Secondary to laryngeal reflux versus COPD versus ILD The patient with CXR abnormalities bilaterally at bases which could be atelectasis secondary to poor ventilation versus parenchymal abnormalities. Concern for fibrosis given his occupation, former smoking status and chronic cough. Aspiration also concern as he was noted to have chocking episodes while drinking liquids which needs further evaluation by videolaryngoscopy. Would obtain CT of chest without contrast for further evaluation of abnormalities noted on recent chest x-ray. The patient is not hypoxemic, not in any distress at this time. He is being monitored closely with 1:1 observation given delirium Thank you for allowing me to participate in the care of your patient. Will follow up with you. [id number]/[facility] #: [id number] GOPAL
[2017-09-14] MEDS: LORazepam TAB(*) 0.5 MG PO PRN (02:20)
[2017-09-14] MEDS: guaiFENesin/CODIEN 100MG-10MG* 5 ML UDC PO PRN ×2 (02:20→17:56)
[2017-09-14] MEDS: Omeprazole CAP* 20 MG PO SCH ×2 (06:01→08:56)
[2017-09-14] MEDS: Aspirin EC Low Dose* 81 MG TAB.EC PO SCH (08:55)
[2017-09-14] MEDS: CMCS - Midodrine (NF) 5 MG TAB PO SCH (08:55)
[2017-09-14] MEDS: Docusate CAP* 100 MG PO SCH ×2 (08:56→19:40)
[2017-09-14] MEDS: Hydrocortisone 1% CREAM* 30 GM TUBE TOPICAL SCH ×2 (08:57→19:44)
[2017-09-14] MEDS: Acetaminophen TAB* 325 MG PO PRN ×2 (08:58→19:40)
[2017-09-14] MEDS: Mometasone/Formoter 200/5 MDI INH SCH ×2 (09:01→19:44)
--- NOTE | 2017-09-14 12:49 | PMRUTEAM ---
PMRU: Goals Current Status: Nursing: Current Status Skin Deviations [Back] Rash Skin Deviations [Buttocks] Other Skin Deviations [Left Knee] Incision Skin Deviation Description [ hydrocortizone cream applied Back] Skin Deviation Description [ slightly reddened-lotion applied Buttocks] Skin Deviation Description [ reddened. sutures intact. open to air Left Knee] Bladder Current Status voiding using urinal Bowel Current Status colace given this am. Nutrition Current Status adequate Medication Current Status NEEDS REINFORCEMENT Physical Therapy: Current Status Bed Mobility Assistance Not Tested Transfer Moblility Assistance Not Tested Transfer/Bed Mobility Rolling Walker Recommended Devices Ambulation Assistance Min Assist,2 or More Person Assist Ambulation Assistive Devices Rolling Walker Number of Feet Patient 130' Ambulated Stairs Assistance Independent Stairs Recommended Devices Straight Cane,One Rail Number of Stairs 7 Occupational Therapy: Current Status Upper Body Dressing Min Assist,Mod Assist,Max Asst Lower Body Dressing Total Assist Bathing Mod Assist,Max Asst Toileting Max Asst Toilet Transfer Mod Assist,2 Person Assist Toilet Transfer Progress x 1-2 depending on confusion Shower Transfer Mod Assist Eating Min Assist,Mod Assist Eating Progress level varies depending on MARYA Rec Therapy: Current Status Summary of Assessment and Pt. has been unable to fully engage in leisure Clinical Impression visits or activities d/t delirium. Recreational activities have been offered for enjoyment and diversion without much success. Treatment Goals Pt. will engage in leisure activities while on the unit. Treatment Plan Provide RT services and encourage involvement. Social Work: Current Status Discharge Plan TBD - Mitchell has been unable to make functional progress due to his delirium Potential for Family Training pt's is interested in family training Anticipated Discharge Home Destination Discharge With TBD Nutrition: Current Status Monitoring confusion/delirium continues. Pt sometimes needing to be fed. PO intake was 100% of meals on 09/11 and 09/12, but somewhat reduced 09/13. No BM since 09/11; receiving Colace daily, but no Senna yet given. Will cont to follow po intake prior to beginning any supplementation, as pt appeared to do better w/eating this a.m. per RN. Speech: Current Status Assessment Pt demonstrates moderate cognitive impairment with moderate-severe deficits in memory, problem solving, and visual-spatial skills. Goals: Physical Therapy: Initial Goals Bed Mobility Assistance Independent Transfer Mobility Assistance Independent Transfer/Bed Mobility None Recommended Devices Ambulation Independent Ambulation Recommended Devices Rolling Walker Ambulation Distance 250 Stairs Assistance Supervision Stair Recommended Devices Two Rails Number of Stairs 12 Home Exercise Program Independent Assistance Physical Therapy: Updated Goals Transfer/Bed Mobility Rolling Walker Recommended Devices Occupational Therapy: Initial Goals Goals to be Completed in (Days 7-10 ) Upper Body Bathing Routine Independent Lower Body Bathing Routine Modified Independent with Upper Body Dressing Routine Independent Lower Body Dressing Routine Modified Independent with Toilet Hygeine and Clothing Modified Independent with Management Routine Toilet Transfer Routine Modified Independent with Step-In Shower Transfer Modified Independent with Routine Functional Transfers for ADL Modified Independent with Grooming Routine Independent Feeding Routine Independent Nursing: Goals Bladder Goal independent Bowel Goal independent Nutrition Goal 100% OF ALL MEALS Medication Goal SUPERVISION Nutrition: Goals Intervention Goals 1. adequate po intake to support post-op healing and lean body mass without add'l wt gain 2. regulation of post-op bowel pattern; no c/o constipation (or diarrhea) 3. Any further ed needs will be addressed as needed Speech: Goals Speech Goal 1 Memory Goal 1 Comments Long-Term Goal: Pt will use compensatory strategies to encode and retrieve 4/4 new items after delay of 30 minutes, Independently, for independence in mobility safety, ADLs and community access. Long-Term Goal: Pt will demonstrate orientation to time, place, purpose, and caregiver names, Independently. Short-term Goal: Pt will use compensatory strategies to encode and retrieve 3/4 new items after delay of 5 minutes, given Maximum skilled instruction and cueing. Short-Term Goal: Pt will demonstrate orientation to time, place, purpose, and caregiver names, 70% given maximum cueing. Status: Ongoing. Treatment activities and progress adapted to patient condition. FELTING MACHINE OPERATOR presented orientation information and repeated with spaced intervals. For temporal, pt was I'ly accurate for year, month, weekday and within 1 day of date; Pt required moderate cueing to comprehend and follow directions such as write problem answers or look at his watch . Pt recalled the name of his PT I'ly, and learned his FELTING MACHINE OPERATOR after brief instruction, but did not recall his OT or prior events of the day. Speech Goal 2 Problem Solving Speech Goal 2 Comments Long-Term Goal: Pt will use compensatory strategies to solve moderately complex routine problems, with 100% accuracy, Independently, for ADLs such as shopping, time and money management. Short-Term Goal: Pt will use compensatory strategies to solve moderately complex routine problems, with 80% accuracy, given Moderate skilled instruction and cueing. Status: Ongoing. Treatment activities and progress adapted to patient condition. Pt required minimal cueing to read and write math problems with 90% accuracy. Pt attended to and sequenced familiar 4-step activities give maximal cueing. Pt described route from home to hospital with 85% accuracy I'ly. Social Work: Goals Discharge Plan TBD - Mitchell has been unable to make functional progress due to his delirium Potential for Family Training pt's is interested in family training Anticipated Discharge Home Destination Discharge With TBD Care Plan: Care Plan ADL's - Improve/Maintain Start: 09/06/17 15:18 Freq: DAILY Status: Active Target: Protocol: Activity Type Activity Date Activity User E-Sign Co-Sign Detail Recorded Client Recorded Date Recorded By Document 09/13/17 15:09 [id number] [id number] 09/13/17 15:09 [id number] 09/13/17 15:09 PMRU Outcome: ADL's/ADL Transfers Orders/Interventions Occupational Therapy Evaluation & Treatment Communication Tool in Patient Room Device Yes Patient to receive OT 5x/wk for 60-120 Therex min/day Self Care Management Group Therapy UE/LE ADL's with Assist Yes: Michelet ADL Transfers with Assist Yes: Michelet Toileting: Transfers,Clothing Management Yes: Michelet ,Hygeine w/Assist Light Kitchen/Laundry w/Assist No Progression Toward Outcome/Goals Progressing Outcome/Goals Met Pt participated in ADL treatment session as described above , pt required increased assistance this date 2* cognitive status including requiring assistance to eat 2* confusion. Cardiovascular- Improve/Maintain Start: 09/05/17 11:56 Freq: DAILY Status: Active Target: Protocol: Activity Type Activity Date Activity User E-Sign Co-Sign Detail Recorded Client Recorded Date Recorded By Document 09/14/17 09:11 [id number] 09/14/17 09:12 [id number] 09/14/17 09:11 PMRU Outcome: Cardiovascular Vital Signs q Shift for 48hrs Then BID Yes Daily Weight Ordered No Current Cardiovascular Outcome/Goal Maintain/ Achieve Baseline HR, BP , Perfusion Improve HR Within Prescribed Parameters Maintain/ Improve Perfusion Maintain/ Achieve Hemodynamic Stability Free of Abnormal Cardiac Symptoms Improve/ Maintain Cardiac Output Progression Toward Outcome/Goal Progressing Communication-Improve/Maintain Start: 09/05/17 11:56 Freq: DAILY Status: Active Target: Protocol: Activity Type Activity Date Activity User E-Sign Co-Sign Detail Recorded Client Recorded Date Recorded By Document 09/13/17 23:29 [id number] [id number] 09/13/17 23:34 [id number] 09/13/17 23:29 PMRU Outcome: Communication/Cognitive Status Outcome/Goals Use Comm Tools/ Devices Makes Needs Known Effectively Progression Toward Outcomes/Goals Not Progressing Coping/Psych-Improve/Maintain Start: 09/05/17 11:56 Freq: DAILY Status: Active Target: Protocol: Activity Type Activity Date Activity User E-Sign Co-Sign Detail Recorded Client Recorded Date Recorded By Document 09/14/17 09:11 [id number] 09/14/17 09:12 [id number] 09/14/17 09:11 PMRU Outcome: Coping/Psychosocial Coping Outcome/Goals Verbalization of Acceptance of Rehab Admit Verbalization of Sense of Control Over Health Status Utilization of Appropriate Problem Solving Techniques Willingness to Participate in Treatment Plan and Basic Needs Utilization of Available Support Systems Absence of Destructive Behavior to Self/Others Psychosocial Outcome/Goals Maintain/ Improve Emotional Health Demonstrates Knowledge of Healthy Coping Mechanisms Available Cooperate/ Participate in Plan Progression Toward Outcome/Goals - Not Progressing Coping Progression Toward Outcome/Goals - Not Progressing Psychosocial Discharge Planning - Improve/Maintain Start: 09/05/17 11:56 Freq: DAILY Status: Active Target: Protocol: Activity Type Activity Date Activity User E-Sign Co-Sign Detail Recorded Client Recorded Date Recorded By Document 09/13/17 07:20 [id number] 09/13/17 07:23 [id number] 09/13/17 07:20 PMRU Outcome: Discharge Planning Identify Patient Needs yes Update Patient Family Yes Outcome/Goals Demonstrates Understanding of Discharge Plan Progression Toward Outcome/Goals Not Progressing Education-Improve/Maintain Start: 09/05/17 11:56 Freq: DAILY Status: Active Target: Protocol: Activity Type Activity Date Activity User E-Sign Co-Sign Detail Recorded Client Recorded Date Recorded By Document 09/14/17 09:11 [id number] 09/14/17 09:12 [id number] 09/14/17 09:11 PMRU Outcome: Education Outcome/Goals Demonstrate/ Verbalize Understanding of Written Discharge Instructions Demonstrates Skills Encourage Questions Progression Toward Outcome/Goals Not Progressing /GI-Improve/Maintain Start: 09/05/17 11:56 Freq: DAILY Status: Active Target: Protocol: Activity Type Activity Date Activity User E-Sign Co-Sign Detail Recorded Client Recorded Date Recorded By Document 09/14/17 09:11 [id number] 09/14/17 09:12 [id number] 09/14/17 09:11 PMRU Outcome: Genitourinary/ Gastrointestinal Genitourinary- Outcome/Goals Maintain/ Achieve Adequate Urinary Output Remain Free of Hospital- Acquired UTI Gastrointestinal-Outcome/Goals Maintain/ Achieve Bowel Regularity in Accordance with Pt's Baseline Remain Free of Emesis Prevent Constipation Bowel Regularity at Home Laxatives as Ordered Progression Toward Outcome/Goals - Progressing Progression Toward Outcome/Goals - GI Progressing Medication Administration Start: 09/05/17 11:56 Freq: DAILY Status: Active Target: Protocol: Activity Type Activity Date Activity User E-Sign Co-Sign Detail Recorded Client Recorded Date Recorded By Document 09/14/17 09:11 [id number] [id number] 09/14/17 09:12 [id number] 09/14/17 09:11 PMRU Outcome: Medication Administration Assess Patient Knowledge/Teach Med Yes Education for all Meds Outcome/Goals Patient Independent with Medication Administration at Home Demonstrates Understanding Progression Towards Outcome/Goals Not Progressing Is Patient Going Home on Lovenox? No Mobility- Improve/Maintain Start: 09/05/17 11:56 Freq: DAILY Status: Active Target: Protocol: Activity Type Activity Date Activity User E-Sign Co-Sign Detail Recorded Client Recorded Date Recorded By Document 09/10/17 17:12 [id number] [email or web address] 09/10/17 17:12 [id number] 09/10/17 17:12 PMRU Outcome: Mobility Physical Therapy Evaluation and Yes Treatment Activity OOB with Assistance Yes WBAT Yes Device Yes Assistance Yes Patient to be seen 5x/wk for 60-120 min/ Therex day for: Mobility Training Gait Training Balance Outcome/Goals Maintain/ Achieve Baseline Mobility Status Improve Mobility Status Demonstrates Proper Use of Assistive Devices Free from Complications of Immobility Progression Toward Outcome/Goals Unable to Assess This Shift Due to Patient Condition Bed Mobility Yes Transfers Yes Gait x ft Yes: 250 Up/Down Stairs Yes: 12 Neurological- Improve/Maintain Start: 09/05/17 11:56 Freq: DAILY Status: Active Target: Protocol: Activity Type Activity Date Activity User E-Sign Co-Sign Detail Recorded Client Recorded Date Recorded By Document 09/14/17 09:11 [id number] 09/14/17 09:12 [id number] 09/14/17 09:11 PMRU Outcome: Neurological Weakness/Aphasia Weakness Weakness/Aphasia Comment generalized Outcome/Goals Maintain/ Achieve Baseline Neurological Status Improve Neurological Status Prevent Avoidable Neurological Decline Maintain/ Improve Strength/ROM Other Outcome/Goals patient remains confused and sleepy this am Progression Toward Outcome/Goals Not Progressing Outcome/Goals Met Comment 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 Pain/Comfort- Improve/Maintain Start: 09/05/17 11:56 Freq: DAILY Status: Active Target: Protocol: Activity Type Activity Date Activity User E-Sign Co-Sign Detail Recorded Client Recorded Date Recorded By Document 09/14/17 09:11 [id number] 09/14/17 09:12 [id number] 09/14/17 09:11 PMRU Outcome: Pain/Comfort Outcome/Goals Demonstrates Knowledge and Use of Available Comfort Measures Achieves Acceptable Comfort/Pain Level as Determined by Patient/Condit Maintain Comfort Level Allowing Patient to Fully Participate in Rehab Progression Toward Outcome/Goals Progressing Outcome/Goals Met Comment tylenol given for generalized discomfort Respiratory - Improve/Maintain Start: 09/05/17 11:56 Freq: DAILY Status: Active Target: Protocol: Activity Type Activity Date Activity User E-Sign Co-Sign Detail Recorded Client Recorded Date Recorded By Document 09/14/17 09:11 [id number] 09/14/17 09:12 [id number] 09/14/17 09:11 PMRU Outcome: Respiratory Does Patient Have a Trach No Outcome/Goals Maintain/ Improve O2 Sat per MD Order Maintain/ Improve Baseline Respiratory Status Maintain/ Improve Activity Tolerance Prevent Pneumonia/ Atelectasis Progression Toward Outcome/Goals Not Progressing Outcome/Goals Met Comment cough continues Safety- Improve/Maintain Start: 09/05/17 11:56 Freq: DAILY Status: Active Target: Protocol: Activity Type Activity Date Activity User E-Sign Co-Sign Detail Recorded Client Recorded Date Recorded By Document 09/14/17 09:11 [id number] 09/14/17 09:12 [id number] 09/14/17 09:11 PMRU Outcome: Safety Outcome/Goals Remain Free of Injury or Harm Cooperates with Safety Measures for Least Restrictive Environment Prevent Falls/ Injury Progression Toward Outcome/Goals Not Progressing Outcome/Goals Met Comment PA in place, safety monitor, in view nurses station Skin- Improve/Maintain Start: 09/05/17 11:56 Freq: DAILY Status: Active Target: Protocol: Activity Type Activity Date Activity User E-Sign Co-Sign Detail Recorded Client Recorded Date Recorded By Document 09/14/17 09:11 [id number] 09/14/17 09:12 [id number] 09/14/17 09:11 PMRU Outcome: Skin Skin Risk Level Medium Skin Orders Turn/Position q2hr While in Bed Outcome/Goals Maintain/ Improve Skin Intergrity Free from Decubitus Surgical Incisions Healing Progression Toward Outcome/Goals Progressing Medicine Note: Length of Stay: 3 days Anticipated Discharge Destination: Home Tentative Discharge Date: 09/17/16 Discharged to: home
[2017-09-14] MEDS: Atorvastatin* 20 MG TAB PO SCH (16:36)
[2017-09-14] MEDS: Warfarin TAB(*) 4 MG PO SCH (16:36)
--- NOTE | 2017-09-14 16:38 | PN ---
Progress Note Date of Service: 09/14/17 Note: KARTHIKEYAN BARILLAS was visited. Therapy notes read and reviewed. Discussed in interdisicplinary team rounds. Doing better today. His CT of shest showed possible right hydronephrosis. Will order U/S of kidneys, possible urology follow up. Current Medications: Active Medications Generic Name Dose Route Start Last Admin Trade Name Freq PRN Reason Stop Dose Admin Acetaminophen 650 mg 09/05/17 09:27 09/14/17 08:58 Tylenol Tab* PO 650 mg Q6H PRN Administration FEVER > 101 Al Hydrox/Mg Hydrox/Simethicone 30 ml 09/05/17 09:27 Maalox Plus* PO Q6H PRN INDIGESTION Albuterol 1 puff 09/05/17 09:40 09/12/17 18:04 Ventolin Hfa Inhaler* INH 1 puff Q6H PRN Administration SOB/WHEEZING Aspirin 81 mg 09/06/17 09:00 09/14/17 08:55 Aspirin Ec Low Dose* PO 81 mg DAILY WYATT Administration Atorvastatin Calcium 20 mg 09/05/17 17:00 09/13/17 17:15 Lipitor* PO 20 mg 1700 WYATT Administration Bisacodyl 10 mg 09/05/17 09:27 Dulcolax Supp* [place] DAILY PRN CONSTIPATION Docusate Sodium 100 mg 09/05/17 21:00 09/14/17 08:56 Colace Cap* PO 100 mg BID WYATT Administration Guaifenesin/Codeine Phosphate 5 ml 09/10/17 17:39 09/14/17 02:20 Robitussin Ac 100mg-10mg* PO 5 ml Q6H PRN Administration COUGH Haloperidol 2.5 mg 09/14/17 16:07 Haldol Tab* PO Q6H PRN AGITATION Hydrocortisone 1 applic 09/09/17 21:00 09/14/17 08:57 Hytone Cream 1%* TOPICAL 1 applic BID WYATT Administration Midodrine 5 mg 09/06/17 09:00 09/14/17 08:55 Midodrine (Nf) PO 5 mg 0900 WYATT Administration Protocol Mometasone Furoate/Formoterol Fumar 2 puff 09/05/17 21:00 09/14/17 09:01 Dulera 200/5 Mdi* INH 2 puff BID WYATT Administration Omeprazole 40 mg 09/06/17 06:00 09/14/17 08:56 Prilosec Cap* PO 40 mg DAILY@0600 COUNT INCLUDES THE [facility] Administration Polyethylene Glycol/Electrolytes 17 gm 09/05/17 09:34 Miralax* PO DAILY PRN CONSTIPATION Quetiapine Fumarate 25 mg 09/10/17 16:02 09/13/17 20:07 Seroquel Tab* PO 25 mg BEDTIME PRN Administration AGITATION Senna 2 tab 09/05/17 09:27 Senokot Tab* PO BEDTIME PRN CONSTIPATION Warfarin Sodium 4 mg 09/13/17 17:00 09/13/17 17:15 Coumadin Tab(*) PO 4 mg DAILY@1700 COUNT INCLUDES THE [facility] Administration Protocol Vital Signs: Vital Signs Temp Pulse Resp BP Pulse Ox 97.8 F 72 20 122/57 100 09/14/17 15:36 09/14/17 15:36 09/14/17 15:36 09/14/17 15:36 09/14/17 15:36 Exam: LUNGS: Coarse BS HEART: reg rhythm ABDOMEN: Soft, +BS EXTREMITIES: Left leg suture line looks clean NEUROLOGIC: Alert. Much calmer. Able to sleep slightly better Assessment/Plan: 09/14/17 16:39 1. Left TKA revision: PT/OT. Tylenol for pain 2. Delirium: a bit better today. Avoid sedative/hypnotics. No opioids. Tylenol for pain. Psychiatry consult. CT of head no CVA 3. CKD: Stable 4. DVT Prophylaxis: Coumadin, increased to 4 mg. 5. Blood loss Anemia: stable 6. Cough/Bronchitis: Robitussin w/codeine. Had CT of chest, pulmonary consult 7. Possible right hydronephrosis/renal cyst: Will order renal ultrasound 8. Advanced directives: DNR. Has MOLST 9. Dsiposition: May need to go to SNF for more subacute rehab
--- NOTE | 2017-09-14 17:09 | RAD ---
HISTORY: Right hydronephrosis versus cysts COMPARISONS: CT dated September 13, 2012 TECHNIQUE: Multiple transverse and longitudinal ultrasound images were obtained of the kidneys using grayscale and color Doppler imaging. FINDINGS: RIGHT KIDNEY: There is a large parapelvic cyst of the midpole of the right kidney measuring 6.1 x 5.7 x 7.5 cm. There is a smaller cyst measuring 1.9 cm. There is no hydronephrosis or nephrolithiasis. The right kidney measures 13.5 x 6.9 x 7.3 cm. LEFT KIDNEY: The left kidney is normal in shape, size, contour, and echogenicity. There is no hydronephrosis or nephrolithiasis. The left kidney measures 12.5 x 5.8 x 5 cm. BLADDER: No images are submitted of the bladder. AORTA AND IVC: No images are submitted of the vasculature. RETROPERITONEUM: Unremarkable. OTHER: None. IMPRESSION: LARGE RIGHT PARAPELVIC CYST. NO APPRECIABLE HYDRONEPHROSIS OR NEPHROLITHIASIS.
[2017-09-14] MEDS: QUEtiapine TAB* 25 MG PO PRN (19:40)
[2017-09-14] MEDS: Haloperidol TAB* 5 MG PO PRN (19:40)
--- NOTE | 2017-09-14 19:59 | PN ---
Progress Note - Progress Note Date of Service: 09/14/17 - Pulm f/u note Note: Pt seen and examined at bedside. No acute events o/n Active Medications Generic Name Dose Route Start Last Admin Trade Name Freq PRN Reason Stop Dose Admin Acetaminophen 650 mg 09/05/17 09:27 09/14/17 19:40 Tylenol Tab* PO 650 mg Q6H PRN Administration FEVER > 101 Al Hydrox/Mg Hydrox/Simethicone 30 ml 09/05/17 09:27 Maalox Plus* PO Q6H PRN INDIGESTION Albuterol 1 puff 09/05/17 09:40 09/12/17 18:04 Ventolin Hfa Inhaler* INH 1 puff Q6H PRN Administration SOB/WHEEZING Aspirin 81 mg 09/06/17 09:00 09/14/17 08:55 Aspirin Ec Low Dose* PO 81 mg DAILY WYATT Administration Atorvastatin Calcium 20 mg 09/05/17 17:00 09/14/17 16:36 Lipitor* PO 20 mg 1700 WYATT Administration Bisacodyl 10 mg 09/05/17 09:27 Dulcolax Supp* [place] DAILY PRN CONSTIPATION Docusate Sodium 100 mg 09/05/17 21:00 09/14/17 19:40 Colace Cap* PO 100 mg BID WYATT Administration Guaifenesin/Codeine Phosphate 5 ml 09/10/17 17:39 09/14/17 17:56 Robitussin Ac 100mg-10mg* PO 5 ml Q6H PRN Administration COUGH Haloperidol 2.5 mg 09/14/17 16:07 09/14/17 19:40 Haldol Tab* PO 2.5 mg Q6H PRN Administration AGITATION Hydrocortisone 1 applic 09/09/17 21:00 09/14/17 19:44 Hytone Cream 1%* TOPICAL 1 applic BID WYATT Administration Midodrine 5 mg 09/06/17 09:00 09/14/17 08:55 Midodrine (Nf) PO 5 mg 0900 WYATT Administration Protocol Mometasone Furoate/Formoterol Fumar 2 puff 09/05/17 21:00 09/14/17 19:44 Dulera 200/5 Mdi* INH 2 puff BID WYATT Administration Omeprazole 40 mg 09/06/17 06:00 09/14/17 08:56 Prilosec Cap* PO 40 mg DAILY@0600 WYATT Administration Polyethylene Glycol/Electrolytes 17 gm 09/05/17 09:34 Miralax* PO DAILY PRN CONSTIPATION Quetiapine Fumarate 25 mg 09/10/17 16:02 09/14/17 19:40 Seroquel Tab* PO 25 mg BEDTIME PRN Administration AGITATION Senna 2 tab 09/05/17 09:27 09/14/17 19:40 Senokot Tab* PO 2 tab BEDTIME PRN Administration CONSTIPATION Warfarin Sodium 4 mg 09/13/17 17:00 09/14/17 16:36 Coumadin Tab(*) PO 4 mg DAILY@1700 WYATT Administration Protocol Vital Signs Temp Pulse Resp BP Pulse Ox 97.8 F 72 20 122/57 100 09/14/17 15:36 09/14/17 15:36 09/14/17 18:50 09/14/17 15:36 09/14/17 18:50 O/E: Pt in NAD HEENT: PERRLA, No JVD Lungs: Distant breath sounds, no wheeze CVS: S1, S2+ Abd: Soft, BS+ Ext: No edema Neuro: Slight improvement in delirium 09/13/17 09/13/17 09/13/17 10:23 10:23 10:23 WBC 7.4 RBC 2.82 L Hgb 8.8 L Hct 26 L MCV 93 MCH 31 MCHC 34 RDW 14 Plt Count 326 MPV 8 Neut % (Auto) 68.0 Lymph % (Auto) 14.8 L [place] % (Auto) 13.8 H Eos % (Auto) 2.6 Baso % (Auto) 0.8 Absolute Neuts (auto) 5.0 Absolute Lymphs (auto) 1.1 Absolute Monos (auto) 1.0 H Absolute Eos (auto) 0.2 Absolute Basos (auto) 0.1 Absolute Nucleated RBC 0 Nucleated RBC % 0 INR (Anticoag Therapy) 1.76 H Sodium 128 L Potassium 3.8 Chloride 100 L Carbon Dioxide 22 Anion Gap 6 BUN 20 Creatinine 1.03 Est GFR ( Amer) 88.9 Est GFR (Non-Af Amer) 69.1 BUN/Creatinine Ratio 19.4 Glucose 101 H Calcium 8.6 Total Bilirubin 0.60 AST 43 H ALT 46 Alkaline Phosphatase 56 Total Protein 5.7 L Albumin 3.1 L Globulin 2.6 Albumin/Globulin Ratio 1.2 82 y o m 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 No endobronchial lesions noted Concern with aspiration Cough could be sec to asthma/COPD, aspiration, GERD Swallow evaluation U/S kidneys- no hydronephrosis, cysts present c/w Dulera Will need f/u CT chest 6 month to ensure stability of nodule Aspiration precautions No other intervention needed from pulm perspective
--- NOTE | 2017-09-14 20:19 | CONS ---
CONSULTATION REPORT: DATE OF CONSULTATION: 09/14/17 ATTENDING PHYSICIAN: Nuno Enriquez MD CONSULTING PHYSICIAN: Neil Monzon MD REASON FOR CONSULT: Delirium. SUBJECTIVE HISTORY: The patient is an 82-year-old man who had corrective surgery on a total knee replacement with OR date being 09/02/17 who is currently admitted to the physical medicine and rehabilitation unit due to rehabilitation needs postsurgically. I spoke with Dr. Enriquez who indicates that the patient's treatment course has been complicated by apparent delirium with a waxing, waning sensorium, intermittent agitation, which has been unresponsive thus far to low dose quetiapine therapy. When I entered the room to meet with him, Mr. Olivas is in the presence of Dr. Enriquez and the patient' s , Gladys. They indicate that Mr. Olivas is having a relatively good day and that he has not had any visual hallucinations or confused behavior thus far. Speaking to the patient alone, he indicates that he was reluctant to have this revision surgery feeling like he could function well without it, but that his friends and family members strongly encouraged him to have the knee re- replaced. He knows his diagnosis as a knee replacement surgery. He is aware of the date of the operating being 09/02/17. He is oriented to person, time, and situation. The patient denies depressed mood, anxiety, agitation. He denies suicidal or homicidal ideations and he denies any formal history of psychiatric problems in the past. PAST PSYCHIATRIC HISTORY: The patient has never been psychiatrically hospitalized nor treated with psychiatric medication. He has no history of suicide attempt. No history of abuse or neglect. No history of traumatic brain injury. SUBSTANCE ABUSE HISTORY: Noncontributory. He did smoke years ago, but has quit for several decades. FAMILY HISTORY: Noncontributory. 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 MEDICATIONS: 1. Plavix. 2. Aspirin. 3. Lipitor. 4. Omeprazole. 5. Midodrine. 6. Dulera. 7. ProAir. 8. Tylenol. 9. Tessalon Perles. 10. Colace. 11. Percocet. 12. Warfarin. SOCIAL HISTORY: The patient was born and raised in [place], [place] and continues to reside there. He came from an intact family where he was the youngest of 6 total children with 4 older sisters and 1 old brother. 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 He has been twice with the first marriage ending in divorce, his second marriage was 25 years ago. The patient has 6 children on his own all through his first marriage and 2 step children from his 's previous relationship. MENTAL STATUS EXAMINATION: The patient is calm, cooperative, aging, bald male with a white medina and eye glasses, dressed in a patient gown, sitting up in a chair in his room. He gazes lovingly at his as I enter. He is calm and easy to establish a rapport with. Speech is somewhat, but within normal tone and volume. Mood is euthymic with a full affect. Thought process is linear and goal directed. Thought content is significant for his desire to finish his rehabilitation and go home. He is denying suicidal or homicidal ideations. He denies auditory or visual hallucinations. Insight and judgment are fair. Cognitively, he is awake and alert, oriented to person, time, place, and situation. DIAGNOSES: As follows: [place] I: Delirium secondary to medications versus postsurgical pain. [place] II: Deferred. ASSESSMENT: The patient is an 82-year-old white male with no psychiatric history who is seen by Psychiatry due to concerns about encephalopathy status post left total knee replacement performed on 09/02/17. The patient has not improved with low dose quetiapine therapy nor has he improved with p.r.n. administration of low-dose lorazepam. RECOMMENDATIONS: I will discontinue lorazepam and replace it with low dose haloperidol for as needed agitation or confusion. He can remain on quetiapine 25 mg p.o. at bedtime as this is perhaps starting to take some positive effect. Psychiatry will continue to follow the patient and make any further recommendations as needed. [id number]/[facility] #: [id number] [facility]
[2017-09-15] MEDS: Acetaminophen TAB* 325 MG PO PRN ×4 (01:45→22:01)
[2017-09-15] MEDS: Haloperidol TAB* 5 MG PO PRN ×2 (01:46→19:25)
[2017-09-15] MEDS: Omeprazole CAP* 20 MG PO SCH (05:49)
[2017-09-15 08:02] LABS: INR 1.75 (0.77-1.02)
[2017-09-15] MEDS: Aspirin EC Low Dose* 81 MG TAB.EC PO SCH (08:13)
[2017-09-15] MEDS: CMCS - Midodrine (NF) 5 MG TAB PO SCH (08:14)
[2017-09-15] MEDS: Docusate CAP* 100 MG PO SCH ×2 (08:14→19:23)
[2017-09-15] MEDS: Hydrocortisone 1% CREAM* 30 GM TUBE TOPICAL SCH ×2 (08:15→19:25)
[2017-09-15] MEDS: Mometasone/Formoter 200/5 MDI INH SCH ×2 (08:15→19:25)
[2017-09-15] MEDS: guaiFENesin/CODIEN 100MG-10MG* 5 ML UDC PO PRN ×2 (13:55→22:00)
--- NOTE | 2017-09-15 17:01 | PN ---
Progress Note Date of Service: 09/15/17 Note: KARTHIKEYAN BARILLAS was visited. Therapy notes read and reviewed. He had a renal ultrasound showing a large right renal cyst and no hydronephrosis. Discussed with urology. They advised to leave it alone. He is much calmer the past two days. Will likely be transferred to a SNF on Wednesday Current Medications: Active Medications Generic Name Dose Route Start Last Admin Trade Name Freq PRN Reason Stop Dose Admin Acetaminophen 650 mg 09/05/17 09:27 09/15/17 13:53 Tylenol Tab* PO 650 mg Q6H PRN Administration FEVER > 101 Al Hydrox/Mg Hydrox/Simethicone 30 ml 09/05/17 09:27 Maalox Plus* PO Q6H PRN INDIGESTION Albuterol 1 puff 09/05/17 09:40 09/12/17 18:04 Ventolin Hfa Inhaler* INH 1 puff Q6H PRN Administration SOB/WHEEZING Aspirin 81 mg 09/06/17 09:00 09/15/17 08:13 Aspirin Ec Low Dose* PO 81 mg DAILY WYATT Administration Atorvastatin Calcium 20 mg 09/05/17 17:00 09/14/17 16:36 Lipitor* PO 20 mg 1700 WYATT Administration Bisacodyl 10 mg 09/05/17 09:27 Dulcolax Supp* [place] DAILY PRN CONSTIPATION Docusate Sodium 100 mg 09/05/17 21:00 09/15/17 08:14 Colace Cap* PO Not Given BID WYATT Guaifenesin/Codeine Phosphate 5 ml 09/10/17 17:39 09/15/17 13:55 Robitussin Ac 100mg-10mg* PO 5 ml Q6H PRN Administration COUGH Haloperidol 2.5 mg 09/14/17 16:07 09/15/17 01:46 Haldol Tab* PO 2.5 mg Q6H PRN Administration AGITATION Hydrocortisone 1 applic 09/09/17 21:00 09/15/17 08:15 Hytone Cream 1%* TOPICAL 1 applic BID WYATT Administration Midodrine 5 mg 09/06/17 09:00 09/15/17 08:14 Midodrine (Nf) PO 5 mg 0900 WYATT Administration Protocol Mometasone Furoate/Formoterol Fumar 2 puff 09/05/17 21:00 09/15/17 08:15 Dulera 200/5 Mdi* INH 2 puff BID WYATT Administration Omeprazole 40 mg 09/06/17 06:00 09/15/17 05:49 Prilosec Cap* PO 40 mg DAILY@0600 [facility] Administration Polyethylene Glycol/Electrolytes 17 gm 09/05/17 09:34 Miralax* PO DAILY PRN CONSTIPATION Quetiapine Fumarate 25 mg 09/10/17 16:02 09/14/17 19:40 Seroquel Tab* PO 25 mg BEDTIME PRN Administration AGITATION Senna 2 tab 09/05/17 09:27 09/14/17 19:40 Senokot Tab* PO 2 tab BEDTIME PRN Administration CONSTIPATION Warfarin Sodium 5 mg 09/15/17 17:00 Coumadin Tab(*) PO DAILY@1700 [facility] Protocol Vital Signs: Vital Signs Temp Pulse Resp BP Pulse Ox 97.1 F 80 20 131/53 100 09/15/17 16:04 09/15/17 16:04 09/15/17 16:05 09/15/17 16:04 09/15/17 16:05 Lab Results: Laboratory Results - last 24 hr 09/15/17 07:01 INR (Anticoag Therapy) 1.75 H Exam: LUNGS: Coarse BS HEART: reg rhythm ABDOMEN: Soft, +BS EXTREMITIES: Left leg suture line looks clean NEUROLOGIC: Alert. Much calmer. Able to sleep slightly better Assessment/Plan: 09/15/17 17:02 1. Left TKA revision: PT/OT. Tylenol for pain 2. Delirium: a bit better today. Avoid sedative/hypnotics. No opioids. Tylenol for pain. Psychiatry consult, PRN Haldol. CT of head no CVA 3. CKD: Stable 4. DVT Prophylaxis: Coumadin, increased to 5 mg. 5. Blood loss Anemia: stable 6. Cough/Bronchitis: Robitussin w/codeine. Had CT of chest, pulmonary consult 7. Right renal cyst: follow up with urology PRN 8. Advanced directives: DNR. Has MOLST 9. Dsiposition: Will likely go to SNF for more subacute rehab
[2017-09-15] MEDS: Atorvastatin* 20 MG TAB PO SCH (17:03)
[2017-09-15] MEDS: Warfarin TAB(*) 5 MG PO SCH (17:03)
[2017-09-15] MEDS: QUEtiapine TAB* 25 MG PO PRN (19:25)
[2017-09-16] MEDS: Haloperidol TAB* 5 MG PO PRN ×2 (01:28→18:50)
[2017-09-16] MEDS: Omeprazole CAP* 20 MG PO SCH (05:03)
[2017-09-16] MEDS: Aspirin EC Low Dose* 81 MG TAB.EC PO SCH (08:40)
[2017-09-16] MEDS: Acetaminophen TAB* 325 MG PO PRN ×2 (08:40→17:16)
[2017-09-16] MEDS: Docusate CAP* 100 MG PO SCH ×2 (08:40→21:03)
[2017-09-16] MEDS: Hydrocortisone 1% CREAM* 30 GM TUBE TOPICAL SCH ×2 (08:42→21:03)
[2017-09-16] MEDS: Mometasone/Formoter 200/5 MDI INH SCH ×2 (08:42→21:03)
[2017-09-16] MEDS: CMCS - Midodrine (NF) 5 MG TAB PO SCH (08:42)
--- NOTE | 2017-09-16 15:19 | PN ---
Progress Note Date of Service: 09/16/17 Note: KARTHIKEYAN BARILLAS was visited. Therapy notes read and reviewed. Stitches in left knee removed without incident. He is going to [facility] tomorrow. Although calmer and redirectable, still has waxing and waning periods of confusion and disorientation Current Medications: Active Medications Generic Name Dose Route Start Last Admin Trade Name Freq PRN Reason Stop Dose Admin Acetaminophen 650 mg 09/05/17 09:27 09/16/17 08:40 Tylenol Tab* PO 650 mg Q6H PRN Administration FEVER > 101 Al Hydrox/Mg Hydrox/Simethicone 30 ml 09/05/17 09:27 Maalox Plus* PO Q6H PRN INDIGESTION Albuterol 1 puff 09/05/17 09:40 09/12/17 18:04 Ventolin Hfa Inhaler* INH 1 puff Q6H PRN Administration SOB/WHEEZING Aspirin 81 mg 09/06/17 09:00 09/16/17 08:40 Aspirin Ec Low Dose* PO 81 mg DAILY WYATT Administration Atorvastatin Calcium 20 mg 09/05/17 17:00 09/15/17 17:03 Lipitor* PO 20 mg 1700 WYATT Administration Bisacodyl 10 mg 09/05/17 09:27 Dulcolax Supp* [place] DAILY PRN CONSTIPATION Docusate Sodium 100 mg 09/05/17 21:00 09/16/17 08:40 Colace Cap* PO 100 mg BID WYATT Administration Guaifenesin/Codeine Phosphate 5 ml 09/10/17 17:39 09/15/17 22:00 Robitussin Ac 100mg-10mg* PO 5 ml Q6H PRN Administration COUGH Haloperidol 2.5 mg 09/14/17 16:07 09/16/17 01:28 Haldol Tab* PO 2.5 mg Q6H PRN Administration AGITATION Hydrocortisone 1 applic 09/09/17 21:00 09/16/17 08:42 Hytone Cream 1%* TOPICAL 1 applic BID WYATT Administration Midodrine 5 mg 09/06/17 09:00 09/16/17 08:42 Midodrine (Nf) PO 5 mg 0900 WYATT Administration Protocol Mometasone Furoate/Formoterol Fumar 2 puff 09/05/17 21:00 09/16/17 08:42 Dulera 200/5 Mdi* INH 2 puff BID WYATT Administration Omeprazole 40 mg 09/06/17 06:00 09/16/17 05:03 Prilosec Cap* PO 40 mg DAILY@0600 WYATT Administration Polyethylene Glycol/Electrolytes 17 gm 09/05/17 09:34 Miralax* PO DAILY PRN CONSTIPATION Quetiapine Fumarate 25 mg 09/10/17 16:02 09/15/17 19:25 Seroquel Tab* PO 25 mg BEDTIME PRN Administration AGITATION Senna 2 tab 09/05/17 09:27 09/14/17 19:40 Senokot Tab* PO 2 tab BEDTIME PRN Administration CONSTIPATION Warfarin Sodium 5 mg 09/15/17 17:00 09/15/17 17:03 Coumadin Tab(*) PO 5 mg DAILY@1700 WYATT Administration Protocol Vital Signs: Vital Signs Temp Pulse Resp BP Pulse Ox 98.3 F 78 20 121/65 95 09/16/17 05:09 09/16/17 05:09 09/16/17 10:45 09/16/17 08:40 09/16/17 08:44 Exam: LUNGS: Coarse BS HEART: reg rhythm ABDOMEN: Soft, +BS EXTREMITIES: Left leg sutures out and suture line healed NEUROLOGIC: Alert. Much calmer. Able to sleep slightly better Assessment/Plan: 09/16/17 15:20 1. Left TKA revision: PT/OT. Tylenol for pain 2. Delirium: a bit better today. Avoid sedative/hypnotics. No opioids. Tylenol for pain. Psychiatry consult appreciated, PRN Haldol. CT of head no CVA 3. CKD: Stable 4. DVT Prophylaxis: Coumadin, increased to 5 mg. 5. Blood loss Anemia: stable 6. Cough/Bronchitis: Robitussin w/codeine. Had CT of chest, pulmonary consult 7. Right renal cyst: follow up with urology PRN 8. Advanced directives: DNR. Has MOLST 9. Dsiposition: Will go to SNF for subacute rehab
[2017-09-16] MEDS: Atorvastatin* 20 MG TAB PO SCH (17:16)
[2017-09-16] MEDS: Warfarin TAB(*) 5 MG PO SCH (17:16)
--- NOTE | 2017-09-16 17:34 | TRS ---
TRANSFER SUMMARY REPORT: DATE OF ADMISSION: 09/05/17. DATE OF DISCHARGE: 09/17/17. Patient is being transferred to [facility]. DISCHARGE DIAGNOSES: 1. Left total knee revision. 2. Delirium. 3. Chronic cough. 4. Right renal cyst. 5. Status post carotid stent. 6. Chronic kidney disease. HISTORY OF ILLNESS AND HOSPITAL COURSE: For complete history of events leading up to his rehab stay, please see the history and physical dictated by Dr. Diane Dewitt on 09/05/17. While on the rehab unit, the patient had significant trouble with delirium. He had a waxing and waning mental status. Some days were worse than others. His opioid medications were stopped in an attempt to clear his mentation. He had a Neurology consult on 09/10/17. A CAT scan of his brain was done which did not show any new CVA or intracranial abnormality. The patient had urinalyses checked twice but they both were clean. He was treated for possible bronchitis with a brief course of oral antibiotics, but did not improve any. In an attempt to simplify his medication regimen, a lot of his medications that were not deemed to be helpful were stopped such as Tessalon Perles. The patient seemed to improve; however, he did not get back his baseline mental status. The patient did have a CAT scan of his chest done because of his chronic cough. Incidental finding of a renal cyst was found. He had a renal ultrasound which confirmed a renal cyst without any hydronephrosis. It was decided to leave the renal cyst alone as it was likely benign. The patient can follow up with Urology as needed. The patient was seen by Physical Therapy and Occupational Therapy while on the rehab unit as well as Speech Therapy. He did make gains with disciplines. With physical therapy at the time of admission, the patient required contact guard to do a transfer. He was able to ambulate about 5 feet with contact guard to min assist. With occupational therapy at the time of admission, he was supervision for upper body dressing, max assist for lower body dressing, max assist for bathing, max assist for toileting. By the time of discharge, the patient transfers with supervision to min assist depending on his mental status. He is able to ambulate about 75 feet with anywhere from supervision to min assist depending on his mental status. Toilet transfers can be anywhere from supervision to min assist. Toileting is still requiring min to mode assist. The patient is going to be transferred to [facility] in order to undergo continuing rehabilitation so that he might return to independent living. DISCHARGE DIET: Regular. DISCHARGE MEDICATIONS: Include: 1. Tylenol 650 mg every 6 hours as needed. 2. Ventolin HFA inhaler 1 puff every 6 hours as needed. 3. Aspirin 81 mg daily. 4. Lipitor 20 mg daily. 5. Robitussin with Codeine 5 mL every 6 hours as needed. 6. Haldol 2.5 mg every 6 hours as needed. 7. Midodrine 5 mg every morning at 9 a.m. 8. Dulera inhaler 2 puffs twice a day as needed. 9. Prilosec 40 mg daily. 10. Seroquel 25 mg at bedtime as needed for agitation. 11. Coumadin 5 mg daily or as directed. SERVICES AFTER DISCHARGE: He should have restorative physical therapy, occupational therapy and speech therapy. FOLLOWUP: With Dr. Shyla Goodwin in about a month. [id number]/[facility] #: [id number] [facility]
[2017-09-16] MEDS: QUEtiapine TAB* 25 MG PO PRN (18:50)
[2017-09-17] MEDS: Haloperidol TAB* 5 MG PO PRN (01:08)
[2017-09-17] MEDS: guaiFENesin/CODIEN 100MG-10MG* 5 ML UDC PO PRN (01:31)
[2017-09-17 05:48] VITALS: BP 151/60
[2017-09-17 06:55] LABS: INR 1.89 (0.77-1.02)
[2017-09-17] MEDS: Omeprazole CAP* 20 MG PO SCH (07:25)
[2017-09-17] MEDS: Aspirin EC Low Dose* 81 MG TAB.EC PO SCH (07:25)
[2017-09-17] MEDS: Docusate CAP* 100 MG PO SCH (07:25)
[2017-09-17] MEDS: CMCS - Midodrine (NF) 5 MG TAB PO SCH (07:25)
[2017-09-17] MEDS: Hydrocortisone 1% CREAM* 30 GM TUBE TOPICAL SCH (07:26)
[2017-09-17] MEDS: Mometasone/Formoter 200/5 MDI INH SCH (07:26)
--- NOTE | 2017-09-17 09:41 | PN ---
Progress Note - Progress Note Date of Service: 09/17/17 Note: Nursing and therapy notes reviewed. I reviewed Dr. Enriquez's transfer summary and discharge orders. Pt is headed to subacute rehab today. He offers no complaints. Staff note intermittently having bloody nose during his stay and had one this morning. Acetaminophen (Tylenol Tab*) 650 mg PO Q6H PRN PRN Reason: FEVER > 101 Last Admin: 09/16/17 17:16 Dose: 650 mg Al Hydrox/Mg Hydrox/Simethicone (Maalox Plus*) 30 ml PO Q6H PRN PRN Reason: INDIGESTION Albuterol (Ventolin Hfa Inhaler*) 1 puff INH Q6H PRN PRN Reason: SOB/WHEEZING Last Admin: 09/12/17 18:04 Dose: 1 puff Aspirin (Aspirin Ec Low Dose*) 81 mg PO DAILY [facility] Last Admin: 09/17/17 07:25 Dose: 81 mg Atorvastatin Calcium (Lipitor*) 20 mg PO 1700 [facility] Last Admin: 09/16/17 17:16 Dose: 20 mg Bisacodyl (Dulcolax Supp*) 10 mg CO DAILY PRN PRN Reason: CONSTIPATION Docusate Sodium (Colace Cap*) 100 mg PO BID [facility] Last Admin: 09/17/17 07:25 Dose: 100 mg Guaifenesin/Codeine Phosphate (Robitussin Ac 100mg-10mg*) 5 ml PO Q6H PRN PRN Reason: COUGH Last Admin: 09/17/17 01:31 Dose: 5 ml Haloperidol (Haldol Tab*) 2.5 mg PO Q6H PRN PRN Reason: AGITATION Last Admin: 09/17/17 01:08 Dose: 2.5 mg Hydrocortisone (Hytone Cream 1%*) 1 applic TOPICAL BID [facility] Last Admin: 09/17/17 07:26 Dose: Not Given Midodrine (Midodrine (Nf)) 5 mg PO 0900 [facility] PRN Reason: Protocol Last Admin: 09/17/17 07:25 Dose: 5 mg Mometasone Furoate/Formoterol Fumar (Dulera 200/5 Mdi*) 2 puff INH BID [facility] Last Admin: 09/17/17 07:26 Dose: 2 puff Omeprazole (Prilosec Cap*) 40 mg PO DAILY@0600 [facility] Last Admin: 09/17/17 07:25 Dose: 40 mg Polyethylene Glycol/Electrolytes (Miralax*) 17 gm PO DAILY PRN PRN Reason: CONSTIPATION Quetiapine Fumarate (Seroquel Tab*) 25 mg PO BEDTIME PRN PRN Reason: AGITATION Last Admin: 09/16/17 18:50 Dose: 25 mg Senna (Senokot Tab*) 2 tab PO BEDTIME PRN PRN Reason: CONSTIPATION Last Admin: 09/14/17 19:40 Dose: 2 tab Warfarin Sodium (Coumadin Tab(*)) 5 mg PO DAILY@1700 [facility] PRN Reason: Protocol Last Admin: 09/16/17 17:16 Dose: 5 mg Vital Signs 09/16/17 09/16/17 09/16/17 10:45 15:06 16:41 Temperature 98.0 F Pulse Rate 76 Respiratory 20 20 20 Rate Blood Pressure 140/61 (mmHg) O2 Sat by Pulse 98 Oximetry 09/16/17 09/16/17 09/17/17 19:07 22:55 05:48 Temperature 98.2 F Pulse Rate 90 Respiratory 20 20 Rate Blood Pressure 151/60 (mmHg) O2 Sat by Pulse 98 95 Oximetry PE: GEN: no acute distress. Alert and appropriate. LUNGS: clear bilaterally. CV: regular rate and rhythm. 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 Goodwin in a month. Dr. Enriquez removed sutures yesterday. #DVT prophyllaxis for a total of 1 month. Continue same dose of coumadin right now and recheck INR Wednesday. #Delirium - using only tylenol for pain. Has seroquel at bedtime with prn haldol. Was seen by psychiatry. #CKD: Stable #Blood loss Anemia: stable #Cough/Bronchitis: Robitussin w/codeine. Had CT of chest, pulmonary consult #Right renal cyst: follow up with urology PRN #Advanced directives: DNR. Has MOLST #Disposition: Will go to SNF for subacute rehab today.
== END 2017-09-17 11:05 | DRG 560 ==
LOC: PMRU 09:27 → UNDOADMIN 09:27 → PMRU 10:20
PROVIDERS: ADMIT Physical Medicine & Rehabilitation; ATTEND Physical Medicine & Rehabilitation
PROC: F07Z5ZZ Bed Mobility Treatment (ICD-10-PCS; principal; 2017-09-05)
PROC: F07Z8ZZ Transfer Training Treatment (ICD-10-PCS; 2017-09-05)
PROC: F07Z9ZZ Gait Training/Functional Ambulation Treatment (ICD-10-PCS; 2017-09-05)
PROC: F08Z0ZZ Bathing/Showering Techniques Treatment (ICD-10-PCS; 2017-09-05)
PROC: F08Z1ZZ Dressing Techniques Treatment (ICD-10-PCS; 2017-09-05)
PROC: F08Z3ZZ Feeding/Eating Treatment (ICD-10-PCS; 2017-09-05)
DX: Z47.1 Aftercare following joint replacement surgery (principal); F05 Delirium due to known physiological condition; I95.89 Other hypotension; J44.9 Chronic obstructive pulmonary disease, unspecified; N28.1 Cyst of kidney, acquired; J98.11 Atelectasis; Z96.652 Presence of left artificial knee joint; R05 Cough; N18.9 Chronic kidney disease, unspecified; K21.9 Gastro-esophageal reflux disease without esophagitis; Z85.46 Personal history of malignant neoplasm of prostate; Z79.01 Long term (current) use of anticoagulants; Z79.1 Long term (current) use of non-steroidal anti-inflammatories (NSAID); Z79.82 Long term (current) use of aspirin; Z79.899 Other long term (current) drug therapy; Z82.5 Family history of asthma and other chronic lower respiratory diseases; J40 Bronchitis, not specified as acute or chronic; Z66 Do not resuscitate; Z87.891 Personal history of nicotine dependence
CPT/HCPCS: 36415; 70450; 71046; 71250; 76775; 80053; 81003; 81015; 82140; 85025; 85610; 85652; 86140; 87502; 94640; A9270-GY

== ENCOUNTER 2017-12-02 13:40 | Emergency (ER) | payer MEDICARE, BC ==
[2017-12-02 14:32] VITALS: BP 129/56
--- NOTE | 2017-12-02 15:00 | UC ---
Abdominal Pain Male HPI - HPI Summary HPI Summary: Mr. Olivas comes to the urgent care this afternoon with his . He complained to 2 weeks of diarrhea he's recently been on antibiotics and just prior to that he was in the hospital for an issue with his knee. Patient states the diarrhea has become explosive that it's brown foamy and odorous he was sent to the emergency department by his primary care doctor for evaluation for C. difficile colitis. Refuses to go to the emergency department came to the urgent care. I attempted to explain to the patient I cannot provide the level of care that he needs here at the urgent care and he said fine he will go home and not getany care he is adamant about going not going to the emergency department and is willing to sign AMA. - History of Current Complaint Chief Complaint: UCGI Stated Complaint: DIARRHEA Time Seen by Provider: 12/02/17 14:52 Hx Obtained From: Patient, Family/Administrative Personal Assistant Onset/Duration: Gradual Onset, Lasting Weeks - 2, Still Present Timing: Constant Severity Initially: Moderate Severity Currently: Moderate Location: Diffuse Radiates: No Character: Cramping Aggravating Factor(s): Nothing Alleviating Factor(s): Nothing Associated Signs And Symptoms: Positive: Diarrhea - Allergies/Home Medications Allergies/Adverse Reactions: Allergies Allergy/AdvReac Type Severity Reaction Status Date / Time Opioids - Morphine Analogues Allergy Agitation Verified 12/02/17 14:36 Home Medications: Home Medications Clopidogrel TAB* [Plavix TAB*] 75 mg PO DAILY 12/02/17 [History Confirmed ] Furosemide TAB* [Lasix TAB*] 20 mg PO DAILY 12/02/17 [History Confirmed 12/02/17 ] Tadalafil [Cialis] 20 mg PO DAILY 12/02/17 [History Confirmed 12/02/17] traZODone TAB* [Desyrel TAB*] 50 mg PO BEDTIME PRN 12/02/17 [History Confirmed 12/02/17] PMH/Surg Hx/FS Hx/Imm Hx Previously Healthy: No Cardiovascular History: Cardiac Disease GI/ History: Gastroesophageal Reflux - Surgical History Surgical History: Yes Surgery Procedure, Year, and Place: [facility]INK stent ok to 3T. left knee replacement 1998. tonsils as a child. appendix age 18. left knee surgery. BILATERAL CATARACTS- [place]- 06/2013. 1984- KNEE SCRAPING- [place] - Family History Known Family History: Positive: None - Social History Occupation: Retired Lives: With Family Alcohol Use: None Substance Use Type: None Smoking Status (MU): Former Smoker Type: Cigarettes Amount Used/How Often: 1 ppd Length of Time of Smoking/Using Tobacco: 20 yrs Have You Smoked in the Last Year: No When Did the Patient Quit Smoking/Using Tobacco: 20 years ago - Immunization History Most Recent Influenza Vaccination: 04/2017 Most Recent Pneumonia Vaccination: 2016 Hx Tetanus, Diphtheria Vaccination: Yes Vaccination Up to Date: Yes Review of Systems Constitutional: Negative Skin: Negative Eyes: Negative ENT: Negative Respiratory: Negative Cardiovascular: Negative Gastrointestinal: Abdominal Pain, Diarrhea Genitourinary: Negative Motor: Negative Neurovascular: Negative Musculoskeletal: Negative Neurological: Negative Psychological: Negative Is Patient Immunocompromised?: No All Other Systems Reviewed And Are Negative: Yes Physical Exam Triage Information Reviewed: Yes Appearance: Well-Appearing, No Pain Distress, Well-Nourished Vital Signs: Initial Vital Signs Temp 98.5 F 12/02/17 14:24 Pulse 58 12/02/17 14:24 Resp 16 12/02/17 14:24 BP 129/56 12/02/17 14:24 Pulse Ox 100 12/02/17 14:24 Vital Signs Reviewed: Yes Eye Exam: Normal Eyes: Positive: Conjunctiva Clear ENT Exam: Normal ENT: Positive: Normal ENT inspection - That, Hearing grossly normal. Negative: Nasal congestion, Muffled voice, Hoarse voice, Dental tenderness Dental Exam: Normal Neck exam: Normal Neck: Positive: Supple, Nontender, No Lymphadenopathy Respiratory Exam: Normal Respiratory: Positive: Chest non-tender, Lungs clear, Normal breath sounds, No respiratory distress, No accessory muscle use Cardiovascular Exam: Normal Cardiovascular: Positive: RRR, No Murmur, Pulses Normal, Brisk Capillary Refill Abdominal Exam: Normal Abdomen Description: Positive: No Organomegaly, Soft, Other: - lower abdomen L> R. Negative: CVA Tenderness (R), CVA Tenderness (L), McBurney's Point Tenderness Bowel Sounds: Positive: Present Musculoskeletal Exam: Normal Musculoskeletal: Positive: Strength Intact, ROM Intact, No Edema Neurological Exam: Normal Neurological: Positive: Alert, Muscle Tone Normal Psychological Exam: Normal Skin Exam: Normal Diagnostics - Laboratory Diagnostic Studies Completed/Ordered: Urine sample obtained specific gravity 1.015, stool sample and blood sample obtained Abd Pain Male Course/Dx - Course Course Of Treatment: Will start patient on Flagyl, advised to follow up with primary care doctor in the morning, lab studies obtained, AMA signed - Differential Dx/Clinical Impression Provider Diagnoses: acute diarrhea Discharge - Sign-Out/Discharge Documenting (check all that apply): Discharge/Admit/Transfer - Discharge Plan Condition: Stable Disposition: HOME Prescriptions: metroNIDAZOLE [Flagyl] 500 mg PO TID #30 tablet Patient Education Materials: Acute Diarrhea (ED), Nutrition Tips for Relief of Diarrhea (ED) Referrals: Debby Bowers MD [Primary Care Provider] - 1 Day - Billing Disposition and Condition Condition: STABLE Disposition: HOME
[2017-12-02 20:03] LABS: ABS Basophils 0 10^3/ul (0-0.2); ABS Eosinophils 0.2 10^3/ul (0-0.6); ABS Lymphocytes 1.3 10^3/ul (1.0-4.8); ABS Neutrophils 2.8 10^3/ul (1.5-7.7); ABS Nucleated RBC 0 10^3/ul; Hematocrit 37 % (42-52); Hemoglobin 12.3 g/dl (14.0-18.0); Lymphocyte % 25.2 % (25-47); Mean Corpuscular HGB Conc 33 g/dl (31-36); Mean Corpuscular Hemoglobin 30 pg (27-31); Mean Corpuscular Volume 90 fL (80-94); Mean Platelet Volume 9.4 um3 (7.4-10.4); Nucleated Red Blood Cells % 0.1; Platelet Count 193 10^3/ul (150-450); Red Blood Count 4.14 10^6/ul (4.0-5.4); Red Cell Distribution Width 16 % (10.5-15); White Blood Count 5.3 10^3/ul (3.5-10.8)
[2017-12-02 20:13] LABS: EGFR Non-African American 46.6 (>60)
--- NOTE | 2017-12-03 09:41 | UC ---
- Progress Note Progress Note: Patient's BMP resulted with abnormal BUN/Cr of 40/1.45 which is up from 20/1.03. Concern for prerenal azotemia in the setting of diarrhea and patient should be instructed to go to the ED for IVF. His Cdiff is negative but his Stool PCR is still pending. Patient refused to go to the ED yesterday and left AMA yesterday. We will call and instruct patient he should to go the ED. Discharge - Sign-Out/Discharge Documenting (check all that apply): Discharge/Admit/Transfer - Discharge Plan Condition: Stable Disposition: HOME Prescriptions: metroNIDAZOLE [Flagyl] 500 mg PO TID #30 tablet Patient Education Materials: Acute Diarrhea (ED), Nutrition Tips for Relief of Diarrhea (ED) Referrals: Debby Bowers MD [Primary Care Provider] - 1 Day - Billing Disposition and Condition Condition: STABLE Disposition: HOME
== END 2017-12-02 15:45 | disposition home or self-care (01) ==
LOC: UCCORT 13:40
DX: R19.7 Diarrhea, unspecified (principal); Z53.21 Procedure and treatment not carried out due to patient leaving prior to being seen by health care provider; Z87.891 Personal history of nicotine dependence; Z88.5 Allergy status to narcotic agent
CPT/HCPCS: 36415; 80053; 81003; 82272; 85025; 87045; 87046; 87328; 87329; 87493; 87899; 99212; G0463

== ENCOUNTER 2017-12-03 17:23 | Emergency (ER) | payer MEDICARE, BC ==
[2017-12-03] MEDS ORDERED: NS 0.9% 500 ML* 500 ML IV ONE (17:52)
[2017-12-03] MEDS: NS 0.9% 1000 ML* 1,000 ML IV ONE ×2 (18:17→18:18)
[2017-12-03 18:24] LABS: ABS Basophils 0 10^3/ul (0-0.2); ABS Eosinophils 0.2 10^3/ul (0-0.6); ABS Lymphocytes 1.4 10^3/ul (1.0-4.8); ABS Monocytes 0.9 10^3/ul (0-0.8); ABS Nucleated RBC 0 10^3/ul; Eosinophil % 4.1 % (0-6); Hematocrit 35 % (42-52); Lymphocyte % 31.5 % (25-47); Mean Corpuscular HGB Conc 34 g/dl (31-36); Mean Corpuscular Hemoglobin 30 pg (27-31); Mean Corpuscular Volume 89 fL (80-94); Mean Platelet Volume 8.5 um3 (7.4-10.4); Nucleated Red Blood Cells % 0.1; Platelet Count 183 10^3/ul (150-450); Red Blood Count 3.97 10^6/ul (4.0-5.4); Red Cell Distribution Width 16 % (10.5-15); White Blood Count 4.4 10^3/ul (3.5-10.8)
--- NOTE | 2017-12-03 18:27 | RAD ---
Indication: Weakness. Single frontal view of the chest performed at 1812 hours was reviewed. Comparison is made with previous exam dated September 08, 2017. Cardiomegaly is noted. Interstitial edema consistent with vascular congestion is noted. Overall no changes noted since September 08, 2017. IMPRESSION: CARDIOMEGALY WITH INTERSTITIAL EDEMA CONSISTENT WITH VASCULAR CONGESTION.
[2017-12-03 18:35] LABS: INR 0.99 (0.77-1.02)
[2017-12-03 18:40] LABS: EGFR Non-African American 39.6 (>60)
[2017-12-03 18:44] LABS: Urine Appearance Clear; Urine Blood Negative (Negative); Urine Color Yellow; Urine Ketones Negative (Negative); Urine Protein Negative (Negative); Urine Specific Gravity 1.017 (1.010-1.030); Urine Urobilinogen Negative (Negative)
--- NOTE | 2017-12-03 19:37 | ED ---
Gaudencio Hoff Angela, scribed for Juan Roach on 12/03/17 at 1806 . Complex/Multi-Sys Presentation - HPI Summary HPI Summary: This pt is a 82 y/o male [facility] for approximately 10 days. Pt additionally c/o feeling gassy, general malaise and generalized weakness. Denies fever, abd pain, cough, chest pain, SOB. Per , pt has been eating and drinking well. Pt went to Urgent Care yesterday where he had blood work. His PCP called him today regarding his test results and told him he was dehydrated and needed to come to the ED. Pt has recent diagnosis of CHF. PMHx includes knee surgery, pneumonia and influenza (during this past winter). - History Of Current Complaint Chief Complaint: EDGeneral Time Seen by Provider: 12/03/17 17:35 Hx Obtained From: Patient, Family/Pipe Changer - Onset/Duration: Lasting Days, Still Present Timing: Days Location: Negative Aggravating Factor(s): nothing Alleviating Factor(s): nothing Associated Signs And Symptoms: Positive: Weakness, Diarrhea. Negative: SOB, Chest Pain, Nausea, Vomiting - Allergies/Home Medications Allergies/Adverse Reactions: Allergies Allergy/AdvReac Type Severity Reaction Status Date / Time Opioids - Morphine Analogues Allergy Agitation Verified 12/03/17 17:25 Home Medications: Home Medications Aspirin EC TAB* [Ecotrin EC Low Dose 81 MG*] 81 mg PO DAILY 12/03/17 [History Confirmed 12/03/17] Clopidogrel TAB* [Plavix TAB*] 75 mg PO DAILY 12/03/17 [History Confirmed ] Ferrous Sulfate TAB* 325 mg PO DAILY 12/03/17 [History Confirmed 12/03/17] Furosemide TAB* [Lasix TAB*] 20 mg PO DAILY 12/03/17 [History Confirmed 12/03/17 ] L.acidoph,Paracasei, B.lactis [Probiotic] 1 each PO DAILY 12/03/17 [History Confirmed 12/03/17] Midodrine (NF) 10 mg PO TID 12/03/17 [History Confirmed 12/03/17] Simvastatin (NF) [Zocor (NF)] 40 mg PO DAILY 12/03/17 [History Confirmed ] metroNIDAZOLE TAB* [Flagyl 250 mg TAB*] 500 mg PO TID 12/03/17 [History Confirmed 12/03/17] PMH/Surg Hx/FS Hx/Imm Hx Endocrine/Hematology History: Denies: Hx Diabetes, Hx Thyroid Disease Cardiovascular History: Reports: Hx Congestive Heart Failure, Hx Coronary Artery Disease - STENT AND A TREE IN THE RIGHT CAROTID ARTERY, Other Cardiovascular Problems/Disorders - CARTOID ARTERY STENT RIGHT SIDE Denies: Hx Hypotension, Hx Hypertension, Hx Pacemaker/ICD Respiratory History: Reports: Hx Asthma - USES INHALER, Hx Chronic Obstructive Pulmonary Disease (COPD) GI History: Reports: Hx Gastroesophageal Reflux Disease - ON MEDICATION FOR, Other GI Disorders - colitis Musculoskeletal History: Reports: Hx Arthritis - OSTEOARTHRITIS, Other Musculoskeletal History - KNEE AND SHOULDER SURGERY Sensory History: Reports: Hx Cataracts, Hx Contacts or Glasses Denies: Hx Hearing Aid Opthamlomology History: Reports: Hx Cataracts, Hx Contacts or Glasses Psychiatric History: Denies: Hx Panic Disorder - Cancer History Cancer Type, Location and Year: Prostate cancer tumor Hx Radiation Therapy: Yes - Surgical History Surgery Procedure, Year, and Place[facility] ok to 3T. left knee replacement 1998. tonsils as a child. appendix age 18. left knee surgery. BILATERAL CATARACTS- [place]- 06/2013. 1983- KNEE SCRAPING- [facility] Hx Anesthesia Reactions: No - N/V- IN 1974 X 3 DAYS Infectious Disease History: No Infectious Disease History: Denies: Hx Clostridium Difficile, Hx Hepatitis, Hx Human Immunodeficiency Virus (HIV), Hx of Known/Suspected MRSA, Hx Shingles, Hx Tuberculosis, History Other Infectious Disease, Traveled Outside the [place] in Last 30 Days - Family History Known Family History: Positive: Respiratory Disease - Father: COPD - Social History Alcohol Use: None Substance Use Type: Reports: None Smoking Status (MU): Former Smoker Type: Cigarettes Amount Used/How Often: 1 ppd Length of Time of Smoking/Using Tobacco: 20 yrs Have You Smoked in the Last Year: No Review of Systems Negative: Fever, Chills Negative: Chest Pain Negative: Shortness Of Breath, Cough Positive: Diarrhea. Negative: Abdominal Pain Musculoskeletal: Negative Skin: Negative Positive: Weakness - generalized All Other Systems Reviewed And Are Negative: Yes Physical Exam - Summary Physical Exam Summary: Appearance: Well appearing, no pain distress Skin: warm, dry, reflects adequate perfusion Head/face: normal Eyes: EOMI, LAMXI ENT: Dry mucous membranes Neck: supple, nontender Respiratory: CTA, breath sounds present Cardiovascular: RRR, pulses symmetrical Abdomen: nontender, soft Bowel: present Musculoskeletal: strength/ROM intact, mild pitting edema bilaterally Neuro: normal, sensory motor intact, A&Ox3 Triage Information Reviewed: Yes Vital Signs On Initial Exam: Initial Vitals Temp Pulse Resp BP Pulse Ox 96.1 F 56 16 125/49 96 12/03/17 17:25 12/03/17 17:25 12/03/17 17:25 12/03/17 17:25 12/03/17 17:25 Vital Signs Reviewed: Yes Diagnostics - Vital Signs Vital Signs Temp Pulse Resp BP Pulse Ox 12/03/17 17:25 96.1 F 56 16 125/49 96 - Laboratory Lab Results: Lab Results 12/03/17 12/03/17 12/03/17 Range/Units 18:00 18:00 18:00 WBC 4.4 (3.5-10.8) 10^3/ul RBC 3.97 L (4.0-5.4) 10^6/ul Hgb 12.0 L (14.0-18.0) g/dl Hct 35 L (42-52) % MCV 89 (80-94) fL MCH 30 (27-31) pg MCHC 34 (31-36) g/dl RDW 16 H (10.5-15) % Plt Count 183 (150-450) 10^3/ul MPV 8.5 (7.4-10.4) um3 Neut % (Auto) 44.1 (38-83) % Lymph % (Auto) 31.5 (25-47) % [place] % (Auto) 19.5 H (0-7) % Eos % (Auto) 4.1 (0-6) % Baso % (Auto) 0.8 (0-2) % Absolute Neuts (auto) 2.0 (1.5-7.7) 10^3/ul Absolute Lymphs (auto) 1.4 (1.0-4.8) 10^3/ul Absolute Monos (auto) 0.9 H (0-0.8) 10^3/ul Absolute Eos (auto) 0.2 (0-0.6) 10^3/ul Absolute Basos (auto) 0 (0-0.2) 10^3/ul Absolute Nucleated RBC 0 10^3/ul Nucleated RBC % 0.1 INR (Anticoag Therapy) 0.99 (0.77-1.02) APTT 29.6 (26.0-36.3) seconds Sodium 136 L (139-145) mmol/L Potassium 4.3 (3.5-5.0) mmol/L Chloride 108 (101-111) mmol/L Carbon Dioxide 20 L (22-32) mmol/L Anion Gap 8 (2-11) mmol/L BUN 40 H (6-24) mg/dL Creatinine 1.67 H (0.67-1.17) mg/dL Est GFR ( Amer) 50.9 (>60) Est GFR (Non-Af Amer) 39.6 (>60) BUN/Creatinine Ratio 24.0 H (8-20) Glucose 104 H (70-100) mg/dL Lactic Acid (0.5-2.0) mmol/L Calcium 8.8 (8.6-10.3) mg/dL Total Bilirubin 0.30 (0.2-1.0) mg/dL AST 11 L (13-39) U/L ALT 9 (7-52) U/L Alkaline Phosphatase 62 (34-104) U/L Troponin I 0.01 (<0.04) ng/mL Total Protein 6.3 L (6.4-8.9) g/dL Albumin 3.6 (3.2-5.2) g/dL Globulin 2.7 (2-4) g/dL Albumin/Globulin Ratio 1.3 (1-3) Urine Color Urine Appearance Urine pH (5-9) Ur Specific [place] (1.010-1.030) Urine Protein (Negative) Urine Ketones (Negative) Urine Blood (Negative) Urine Nitrate (Negative) Urine Bilirubin (Negative) Urine Urobilinogen (Negative) Ur Leukocyte Esterase (Negative) Urine WBC (Auto) (Absent) Urine RBC (Auto) (Absent) Ur Squamous Epith Cells (Absent) Urine Bacteria (Absent) Hyaline Casts (Absent) Urine Glucose (Negative) Urine Ascorbic Acid (Negative) 12/03/17 12/03/17 Range/Units 18:00 18:25 WBC (3.5-10.8) 10^3/ul RBC (4.0-5.4) 10^6/ul Hgb (14.0-18.0) g/dl Hct (42-52) % MCV (80-94) fL MCH (27-31) pg MCHC (31-36) g/dl RDW (10.5-15) % Plt Count (150-450) 10^3/ul MPV (7.4-10.4) um3 Neut % (Auto) (38-83) % Lymph % (Auto) (25-47) % [place] % (Auto) (0-7) % Eos % (Auto) (0-6) % Baso % (Auto) (0-2) % Absolute Neuts (auto) (1.5-7.7) 10^3/ul Absolute Lymphs (auto) (1.0-4.8) 10^3/ul Absolute Monos (auto) (0-0.8) 10^3/ul Absolute Eos (auto) (0-0.6) 10^3/ul Absolute Basos (auto) (0-0.2) 10^3/ul Absolute Nucleated RBC 10^3/ul Nucleated RBC % INR (Anticoag Therapy) (0.77-1.02) APTT (26.0-36.3) seconds Sodium (139-145) mmol/L Potassium (3.5-5.0) mmol/L Chloride (101-111) mmol/L Carbon Dioxide (22-32) mmol/L Anion Gap (2-11) mmol/L BUN (6-24) mg/dL Creatinine (0.67-1.17) mg/dL Est GFR ( Amer) (>60) Est GFR (Non-Af Amer) (>60) BUN/Creatinine Ratio (8-20) Glucose (70-100) mg/dL Lactic Acid 1.5 (0.5-2.0) mmol/L Calcium (8.6-10.3) mg/dL Total Bilirubin (0.2-1.0) mg/dL AST (13-39) U/L ALT (7-52) U/L Alkaline Phosphatase (34-104) U/L Troponin I (<0.04) ng/mL Total Protein (6.4-8.9) g/dL Albumin (3.2-5.2) g/dL Globulin (2-4) g/dL Albumin/Globulin Ratio (1-3) Urine Color Yellow Urine Appearance Clear Urine pH 5.0 (5-9) Ur Specific [place] 1.017 (1.010-1.030) Urine Protein Negative (Negative) Urine Ketones Negative (Negative) Urine Blood Negative (Negative) Urine Nitrate Negative (Negative) Urine Bilirubin Negative (Negative) Urine Urobilinogen Negative (Negative) Ur Leukocyte Esterase Trace A (Negative) Urine WBC (Auto) Trace(0-5/hpf) (Absent) Urine RBC (Auto) Absent (Absent) Ur Squamous Epith Cells Present A (Absent) Urine Bacteria Absent (Absent) Hyaline Casts Present A (Absent) Urine Glucose Negative (Negative) Urine Ascorbic Acid * A (Negative) Result Diagrams: 12/03/17 18:00 12/03/17 18:00 Lab Statement: Any lab studies that have been ordered have been reviewed, and results considered in the medical decision making process. - Radiology Chest XR Xray Interpretation: Positive (See Comments) - IMPRESSION: Cardiomegaly with interstitial edema consistent with vascular congestion. Dr. Roach has reviewed this radiology report. Radiology Interpretation Completed By: Radiologist - EKG 17:57 Cardiac Rate: NL - at 63 bpm EKG Rhythm: Sinus Rhythm EKG Interpretation: Non-specific ST-T changes Re-Evaluation - Re-Evaluation First Eval Re-Evaluation Time: 19:32 Comment: I reviewed the lab and XR results with the pt and . Pt will be discharged home. Complex Multi-Symp Course/Dx Assessment/Plan: Pt is a 82 y/o male [facility] [place] diarrhea for approximately 10 days. Pt additionally c/o feeling gassy, general malaise and generalized weakness. Blood work, urinalysis, chest XR, and EKG were obtained. Chest XR shows cardiomegaly with interstitial edema consistent with vascular congestion. Lab results reveal mild dehydration. In the ED course the pt was given IV fluids. Pt will be discharged home with follow up from his PCP. He is instructed to return to the ED for any worsening or new symptoms. - Diagnoses Differential Diagnoses/HQI/PQRI: Metabolic Abnormality, Urinary Tract Infection , Other - dehydration Provider Diagnoses: Dehydration Discharge - Sign-Out/Discharge Documenting (check all that apply): Discharge/Admit/Transfer - Discharge to home - Discharge Plan Condition: Stable Disposition: HOME Patient Education Materials: Dehydration (ED) Referrals: Debby Bowers MD [Primary Care Provider] - 3 Days Additional Instructions: Please follow up with your primary care provider in 3 days. RETURN TO THE ED FOR ANY WORSENING SYMPTOMS. - Billing Disposition and Condition Condition: STABLE Disposition: HOME The documentation as recorded by the Gaudencio herr Angela accurately reflects the service I personally performed and the decisions made by Marley clemens Emmanuel.
[2017-12-03 19:55] VITALS: BP 150/74
== END 2017-12-03 19:55 | disposition home or self-care (01) ==
LOC: ED 17:23
DX: E86.0 Dehydration (principal); R53.1 Weakness; R19.7 Diarrhea, unspecified
CPT/HCPCS: 36415; 71045; 80053; 81003; 81015; 83605; 84484; 85025; 85610; 85730; 87086; 93005; 99282

== ENCOUNTER 2018-05-13 08:27 | Emergency (ER) | payer MEDICARE, BC ==
[2018-05-13 09:06] VITALS: BP 108/48
--- NOTE | 2018-05-13 09:48 | RAD ---
HISTORY: need bladder volume, possible retention COMPARISONS: None TECHNIQUE: Multiple transverse and longitudinal ultrasound images were obtained of the pelvis using grayscale and color Doppler imaging using the transabdominal transducer. FINDINGS: PROSTATE: The prostate gland is enlarged and lobulated with intraluminal extension into the bladder. The prostate gland measures 4.2 x 4.5 x 3.6 centimeters, for a volume of 36 milliliters. SEMINAL VESICLES: The seminal vesicles are not well-visualized. BLADDER: There is trabeculation of the bladder wall. Ureteral jets are not identified. The prevoid bladder volume is 56 milliliters.. The patient was unable to void spontaneously. IMPRESSION: 1. THICKENED BLADDER WALL WITH A 56 ML PREVOID BLADDER VOLUME. THE PATIENT WAS UNABLE TO VOID SPONTANEOUSLY. 2. URETERAL JETS WERE NOT IDENTIFIED. 3. ENLARGED PROSTATE WITH INTRALUMINAL EXTENSION INTO THE BLADDER.
--- NOTE | 2018-05-13 10:42 | UC ---
Complaint Male HPI - HPI Summary HPI Summary: 82-year-old male with history of hypotonic bladder presents with discomfort over the bladder for the last 3 hours. It is largely resolved by the time he arrived here. He did have a procedure done 2 days ago by his urologist in [place]. It appears from the notes that he had urodynamic testing. He is not on antibiotics. He he has been urinating every 1-2 hours since the procedure. He is on Lasix. There is reasoning in the notes for why he is not on any alpha-juanito or anticholinergic. He denies any fever, shakes chills or abdominal pain. He was treated more than 10 years ago for prostate cancer and had had external beam radiation. - History of Current Complaint Chief Complaint: UCGU Stated Complaint: URINARY OCMPLAINT Time Seen by Provider: 05/13/18 08:59 Hx Obtained From: Patient, Family/Players Assistant Pain Intensity: 0 - Allergies/Home Medications Allergies/Adverse Reactions: Allergies Allergy/AdvReac Type Severity Reaction Status Date / Time acetaminophen [From Tylenol] Allergy Unknown Verified 05/13/18 09:51 Reaction Details codeine Allergy Unknown Verified 05/13/18 09:51 Reaction Details hydrocodone Allergy Unknown Verified 05/13/18 09:51 Reaction Details morphine Allergy Unknown Verified 05/13/18 09:51 Reaction Details Opioids - Morphine Analogues Allergy Agitation Verified 05/13/18 09:51 Home Medications: Home Medications Furosemide TAB* [Lasix TAB*] 40 mg PO 0700,1400 05/13/18 [History Confirmed 12/24] Mometasone/Formoter 200/5 MDI* [Dulera 200/5 MDI*] 2 puff INH BID 05/13/18 [ History Confirmed 05/13/18] Pantoprazole TAB (NF) [Protonix TAB (NF)] 20 mg PO DAILY 05/13/18 [History Confirmed 05/13/18] Sertraline* [Zoloft*] 50 mg PO DAILY 05/13/18 [History Confirmed 05/13/18] Tiotropium [place] [Spiriva Respimat] 2 puff INH DAILY 05/13/18 [History Confirmed 05/13/18] PMH/Surg Hx/FS Hx/Imm Hx Previously Healthy: No - chronic renal insuf Cancer History: Prostate Cancer - Surgical History Surgical History: Yes Surgery Procedure, Year, and Place: carotid artery stent 09/2010 at [facility] - ACCU LINK stent ok to 3T. left knee replacement 1998, 2nd left knee replacement 08/2017. tonsils as a child. appendix age 18; prostate CA approx 2012. left knee surgery[facility] KNEE SCRAPING- [facility] - Family History Known Family History: Positive: Respiratory Disease - Father: COPD - Social History Occupation: Retired Alcohol Use: None Substance Use Type: None Smoking Status (MU): Former Smoker Type: Cigarettes Amount Used/How Often: 1 ppd Length of Time of Smoking/Using Tobacco: 20 yrs Have You Smoked in the Last Year: No When Did the Patient Quit Smoking/Using Tobacco: 20 years ago - Immunization History Most Recent Influenza Vaccination: 04/2017 Most Recent Pneumonia Vaccination: 2016 Hx Tetanus, Diphtheria Vaccination: Yes Vaccination Up to Date: Yes Review of Systems Constitutional: Negative Respiratory: Negative Cardiovascular: Negative Gastrointestinal: Negative Genitourinary: Urgency, Other - Tenderness over the bladder All Other Systems Reviewed And Are Negative: Yes Physical Exam Triage Information Reviewed: Yes Appearance: Well-Appearing, No Pain Distress, Well-Nourished Vital Signs: Initial Vital Signs Temp 97.8 F 05/13/18 08:34 Pulse 69 05/13/18 08:34 Resp 20 05/13/18 08:34 BP 108/48 05/13/18 08:34 Pulse Ox 98 05/13/18 08:34 Vital Signs Reviewed: Yes Eye Exam: Normal ENT: Positive: Normal ENT inspection Neck: Positive: Supple Respiratory: Positive: Lungs clear Cardiovascular: Positive: RRR Abdomen Description: Positive: Nontender, Soft, Other: - No tenderness or distention over the bladder Male Genital Exam: Positive: Normal Genitalia, Other - No incontinence, circumsized Musculoskeletal Exam: Normal Skin Exam: Normal Diagnostics - Laboratory Diagnostic Studies Completed/Ordered: Urinalysis [id number]: Positive for 3+ blood, 2+ protein, 3+ leukocyte esterase - Radiology bladder ultrasound Xray Interpretation: Positive (See Comments) Radiology Interpretation Completed By: Radiologist - Urine volume 56 mL, enlarged prostate and thickened bladder wall Re-Evaluation - Re-Evaluation First Eval Change: Improved - No pain throughout his course here. Complaint Male Course/Dx - Course Course Of Treatment: Patient's had requested a Melchor catheter however there is no distention over the bladder. An ultrasound was obtained confirming that there is thick next of the bladder wall but only 56 cc residual of urine. No catheter was placed. The patient was able to urinate spontaneously and provide a sample. There was leukocyte esterase and blood which is likely from the procedure. He will be prophylaxed with doxycycline for cystitis. I did not give him Cipro given his history of renal dysfunction. He will follow up closely with his primary urologist. - Differential Dx/Diagnosis Differential Diagnosis/HQI/PQRI: Other - Urinary obstruction, acute urinary retention, bladder mass, UTI Provider Diagnoses: Acute cystitis Discharge - Sign-Out/Discharge Documenting (check all that apply): Patient Departure All imaging exams completed and their final reports reviewed: Yes - Discharge Plan Condition: Improved Disposition: HOME Prescriptions: Doxycycline Hyclate 100 mg PO BID #14 tablet Patient Education Materials: Urinary Tract Infection in Men (ED) Referrals: Debby Bowers MD [Primary Care Provider] - Additional Instructions: Call today to follow up with your urologist and Be Murguia. Return with fever, inability to urinate, worse, new symptoms or other concerns. - Billing Disposition and Condition Condition: IMPROVED Disposition: Home - Attestation Statements Document Initiated by Darin: No
--- NOTE | 2018-05-15 07:17 | UC ---
- Progress Note Progress Note: + E. Coli On doxy await sensitivity Ljj 05/15/2018 Re-Evaluation - Re-Evaluation First Eval Change: Improved - No pain throughout his course here. Discharge - Sign-Out/Discharge Documenting (check all that apply): Post-Discharge Follow Up All imaging exams completed and their final reports reviewed: Yes - Discharge Plan Condition: Improved Disposition: HOME Prescriptions: Doxycycline Hyclate 100 mg PO BID #14 tablet Patient Education Materials: Urinary Tract Infection in Men (ED) Referrals: Debby Bowers MD [Primary Care Provider] - Additional Instructions: Call today to follow up with your urologist and Be Murguia. Return with fever, inability to urinate, worse, new symptoms or other concerns. - Billing Disposition and Condition Condition: IMPROVED Disposition: Home
== END 2018-05-13 11:02 | disposition home or self-care (01) ==
LOC: UCCORT 08:27
DX: N30.00 Acute cystitis without hematuria (principal); N40.0 Benign prostatic hyperplasia without lower urinary tract symptoms; B96.20 Unspecified Escherichia coli [E. coli] as the cause of diseases classified elsewhere; Z85.46 Personal history of malignant neoplasm of prostate; Z92.3 Personal history of irradiation; Z88.6 Allergy status to analgesic agent; Z88.5 Allergy status to narcotic agent; Z87.891 Personal history of nicotine dependence
CPT/HCPCS: 76857; 81003; 87077; 87086; 87186; 99212; G0463

== ENCOUNTER 2018-06-11 09:22 | Emergency (ER) | payer MEDICARE, BC ==
[2018-06-11 11:05] VITALS: BP 121/58
--- NOTE | 2018-06-11 11:14 | UC ---
Complaint Male HPI - HPI Summary HPI Summary: 83 M with UTi Sx . c/o burning, frequency and blood in urine that started 2 days ago. No fever. no n/v/d. No confusion. Has had this in the past. Previous UTI was on doxy and it worked and no resistance. [ End ] - History of Current Complaint Chief Complaint: UCGU Stated Complaint: URINARY Time Seen by Provider: 06/11/18 11:10 Hx Obtained From: Patient, Family/Driver Guide Onset/Duration: Sudden Onset Timing: Constant Pain Intensity: 5 Location: Penis Character: Sharp, Burning Aggravating Factor(s): Voiding Associated Signs And Symptoms: Positive: Hematuria, Dysuria. Negative: Back Pain, Fever, Nausea - Allergies/Home Medications Allergies/Adverse Reactions: Allergies Allergy/AdvReac Type Severity Reaction Status Date / Time acetaminophen [From Tylenol] Allergy Unknown Verified 06/11/18 11:00 Reaction Details codeine Allergy Unknown Verified 06/11/18 11:00 Reaction Details hydrocodone Allergy Unknown Verified 06/11/18 11:00 Reaction Details morphine Allergy Unknown Verified 06/11/18 11:00 Reaction Details Opioids - Morphine Analogues Allergy Agitation Verified 06/11/18 11:00 PMH/Surg Hx/FS Hx/Imm Hx Previously Healthy: Yes Endocrine History: Dyslipidemia Cardiovascular History: Cardiac Disease, Hypertension Respiratory History: COPD Psychological History: Anxiety, Depression - Surgical History Surgical History: Yes Surgery Procedure, Year, and [facility] to 3T. left knee replacement 1998, 2nd left knee replacement 08/2017. tonsils as a child. appendix age 18; prostate CA approx 2012. left knee surgery. BILATERAL CATARACTS- [facility]- 2012. 1984- KNEE SCRAPING- [facility] - Family History Known Family History: Positive: Respiratory Disease - Father: COPD - Social History Occupation: Retired Lives: With Family Alcohol Use: None Substance Use Type: None Smoking Status (MU): Former Smoker Type: Cigarettes Amount Used/How Often: 1 ppd Length of Time of Smoking/Using Tobacco: 20 yrs Have You Smoked in the Last Year: No When Did the Patient Quit Smoking/Using Tobacco: 20 years ago - Immunization History Most Recent Influenza Vaccination: 04/2017 Most Recent Pneumonia Vaccination: 2016 Hx Tetanus, Diphtheria Vaccination: Yes Vaccination Up to Date: Yes Review of Systems Genitourinary: Dysuria, Hematuria, Frequency, Urgency Is Patient Immunocompromised?: No All Other Systems Reviewed And Are Negative: Yes Physical Exam Triage Information Reviewed: Yes Appearance: Well-Appearing, No Pain Distress, Well-Nourished Vital Signs: Initial Vital Signs Temp 97.3 F 06/11/18 11:03 Pulse 62 06/11/18 11:03 Resp 20 06/11/18 11:03 BP 121/58 06/11/18 11:03 Pulse Ox 99 06/11/18 11:03 Eye Exam: Normal ENT Exam: Normal Dental Exam: Normal Neck exam: Normal Neck: Positive: 1 Respiratory Exam: Normal Cardiovascular Exam: Normal Abdominal Exam: Normal Musculoskeletal Exam: Normal Neurological Exam: Normal Psychological Exam: Normal Skin Exam: Normal Complaint Male Course/Dx - Course Course Of Treatment: If sx worsen go to ED. follow up with your urologist and Be Murguia. Return with fever, inability to urinate, worse, new symptoms or other concerns. reviewed culture no resistance and per patient doxy relieved his UTI previously repeat at this time aware of SE to call [facility] for follow up as well - Differential Dx/Diagnosis Differential Diagnosis/HQI/PQRI: Ureteral Calculi, Urinary Tract Infection Provider Diagnoses: UTI Discharge - Sign-Out/Discharge Documenting (check all that apply): Patient Departure All imaging exams completed and their final reports reviewed: No Studies - Discharge Plan Condition: Good Disposition: HOME Prescriptions: Doxycycline Hyclate 100 mg PO BID #14 tablet Patient Education Materials: Urinary Tract Infection in Men (ED) Referrals: Debby Bowers MD [Primary Care Provider] - 3 Days Additional Instructions: Please follow up with your urologist / Dr. Murguia. Return with fever, inability to urinate, worse, new symptoms or other concerns. - Billing Disposition and Condition Condition: GOOD Disposition: Home
== END 2018-06-11 11:40 | disposition home or self-care (01) ==
LOC: UCCORT 09:22
DX: N39.0 Urinary tract infection, site not specified (principal); I10 Essential (primary) hypertension; J44.9 Chronic obstructive pulmonary disease, unspecified; Z95.5 Presence of coronary angioplasty implant and graft; Z88.6 Allergy status to analgesic agent; Z88.5 Allergy status to narcotic agent; Z87.891 Personal history of nicotine dependence
CPT/HCPCS: 81003; 87077; 87086; 87186; 99212; G0463